=== PATIENT | male | born 1940 | race Caucasian/White ===

== ENCOUNTER 2018-10-22 23:02 | Emergency (ER) | payer MEDICARE, OTHER ==
[~2018-10-22] VITALS: Ht 177.8 cm; Wt 81.8 kg
[~2018-10-22 23:02] MED LIST: ALBU18HF2 INH; ASPI-1071 PO; FURO-150 PO
--- NOTE | 2018-10-23 00:09 | NUR ---
PT SITTING IN ROOM NAPPING. WILL CONTINUE TO MONITOR.
[2018-10-23] MEDS ORDERED: cephalexin 250mg capsule PO ONE (00:25)
[2018-10-23] MEDS ORDERED: ciprofloxacin 0.3% 2.5ml ophthalmic solution LEFTEYE ONE (00:25)
[2018-10-23] MEDS ORDERED: CIPR2.5D18 LEFTEYE (00:27)
[2018-10-23] MEDS ORDERED: CEPH250T PO (00:27)
[2018-10-23 01:04] VITALS: BP 108/67
== END 2018-10-23 01:42 | disposition home or self-care (01) ==
LOC: ER 23:02
DX: H00.035 Abscess of left lower eyelid (principal); H00.015 Hordeolum externum left lower eyelid; E78.00 Pure hypercholesterolemia, unspecified; I10 Essential (primary) hypertension; E03.9 Hypothyroidism, unspecified; Z90.49 Acquired absence of other specified parts of digestive tract; Z86.73 Personal history of transient ischemic attack (TIA), and cerebral infarction without residual deficits; Z98.890 Other specified postprocedural states; Z95.1 Presence of aortocoronary bypass graft; Z88.0 Allergy status to penicillin; Z79.82 Long term (current) use of aspirin; Z79.2 Long term (current) use of antibiotics; Z79.899 Other long term (current) drug therapy
CPT/HCPCS: 99284

== ENCOUNTER 2019-01-07 08:33 | Inpatient (IN) | payer MEDICARE, OTHER ==
[~2019-01-07] VITALS: Ht 177.8 cm; Wt 81.0 kg
[~2019-01-07 08:33] MED LIST changes: +CIPR2.5D18 LEFTEYE
--- NOTE | 2019-01-07 08:46 | NUR ---
Awaiting Ed MD.
--- NOTE | 2019-01-07 09:45 | NUR ---
patient repositioned for comfort,incontinent with BM,chet care provided,call light within reach.
[2019-01-07 10:10] LABS: BASOPHILS # (AUTO) 0.1 X10'3 (0-0.2); BASOPHILS % (AUTO) 0.2 % (0-1); EOSINOPHILS % (AUTO) 0.1 % (0-6); HEMATOCRIT 40.1 % (42.0-52.0); HEMOGLOBIN 13.1 g/dl (14.0-17.9); LYMPHOCYTES # (AUTO) 0.7 X10'3 (1.1-4.8); LYMPHOCYTES % (AUTO) 2.8 % (21-51); MEAN CORPUSCULAR HEMOGLOBIN 27.8 PG (27.0-31.0); MEAN CORPUSCULAR HGB CONC 32.7 g/dL (33.0-36.5); MEAN CORPUSCULAR VOLUME 84.9 FL (78-98); MEAN PLATELET VOLUME 9.8 FL (7.4-10.4); MONOCYTES # (AUTO) 3.2 X10'3 (0-0.9); MONOCYTES % (AUTO) 13.6 % (2-12); NEUTROPHILS # (AUTO) 19.6 X10'3 (1.8-7.7); NEUTROPHILS % (AUTO) 83.3 % (42-75); RED BLOOD COUNT 4.72 X10'6 (4.70-6.10); RED CELL DISTRIBUTION WIDTH 16.2 % (11.5-14.5); WHITE BLOOD COUNT 23.5 X10'3 (4.5-11.0)
[2019-01-07 10:12] LABS: ALANINE AMINOTRANSFERASE 17 U/L (12-78); ALBUMIN 3.2 G/DL (3.4-5.0); ALBUMIN/GLOBULIN RATIO 0.6 (1.1-1.5); ALKALINE PHOSPHATASE 67 IU/L (46-116); ANION GAP 7 (8-16); ASPARTATE AMINO TRANSFERASE 14 U/L (10-37); BILIRUBIN,TOTAL 0.6 MG/DL (0.1-1.0); BLOOD UREA NITROGEN 10 MG/DL (7-18); BUN/CREATININE RATIO 11.5 (5.4-32.0); CALCIUM 9.6 MG/DL (8.5-10.1); CHLORIDE 106 MMOL/L (99-107); CREATININE 0.87 MG/DL (0.60-1.10); GLUCOSE 122 MG/DL (70-104); POTASSIUM 3.7 MMOL/L (3.5-5.1); SODIUM 141 MMOL/L (135-145); TOTAL CARBON DIOXIDE 27.8 MMOL/L (24-32); TOTAL PROTEIN 8.7 G/DL (6.4-8.2); eGFR 84 ML/MIN
[2019-01-07 10:12] LABS: CLARITY,URINE BLOODY (Clear); COLOR,URINE RED (Yellow); UA COLLECTION TYPE CLN CATCH MIDSTREAM
[2019-01-07 10:20] LABS: RBC,URINE TNTC /HPF (0-2); WBC,URINE TNTC /HPF (0-4)
[2019-01-07 10:23] LABS: BACTERIA,URINE FEW /HPF (Neg); MUCUS STRANDS FEW /LPF (Neg); SQUAMOUS EPITHELIAL CELL,UR NONE SEEN /LPF (FEW)
[2019-01-07 10:24] LABS: TRANSITIONAL EPI CELLS,URINE FEW /HPF
[2019-01-07 10:46] LABS: PLATELET COUNT 103 X10'3 (140-440)
[2019-01-07 10:56] LABS: TOTAL CELLS COUNTED 100
[2019-01-07 10:58] LABS: ANISOCYTOSIS 1+; HYPOGRANULAR PLATELETS FEW; LARGE PLATELETS FEW; PLATELET ESTIMATE DECREASED
[2019-01-07 10:59] LABS: POLYCHROMASIA FEW
[2019-01-07] MEDS ORDERED: CefTRIAXone/D5W-Rocephin 1gm 50 ML IV ONE (11:00)
[2019-01-07] MEDS ORDERED: ondansetron/PF 4mg/2ml inj IV PRN (11:20)
[2019-01-07] MEDS ORDERED: magnesium 2GM in 50ml NS 50 ML IV PRN (11:20)
[2019-01-07] MEDS ORDERED: magnesium 4gm in 100ml NS 100 ML IV PRN (11:20)
[2019-01-07] MEDS ORDERED: magnesium hydroxide 30ml (MOM) UD suspension PO PRN (11:20)
[2019-01-07] MEDS ORDERED: potassium CL 10mEq/100ml bag 100 ML IV PRN ×2 (11:20)
[2019-01-07] MEDS ORDERED: mag hydrox/Alum hydrox/simeth 30ml oral suspension PO PRN (11:20)
[2019-01-07] MEDS ORDERED: morphine 2 MG/ML inj. syringe IV PRN ×2 (11:20)
[2019-01-07] MEDS ORDERED: acetaminophen 325mg tablet PO PRN (11:20)
[2019-01-07] MEDS ORDERED: potassium Cl 20 mEq SR tablet PO PRN ×2 (11:20)
[2019-01-07] MEDS ORDERED: normal saline 1000ml 1,000 ML IV SCH (13:05)
[2019-01-07] MEDS ORDERED: FLO0.4C PO (13:41)
[2019-01-07] MEDS ORDERED: POLY1DRO2 OP (13:41)
[2019-01-07] MEDS ORDERED: SYN0.088T PO (13:41)
[2019-01-07] MEDS: normal saline 1000ml 1,000 ML IV SCH ×2 (13:57→17:18)
--- NOTE | 2019-01-07 14:15 | NUR ---
Pt has arrived to floor. Aids doing bladder scan.
--- NOTE | 2019-01-07 14:30 | NUR ---
Bladder scan shows 96ml of urine in bladder. Pt eating sandwich, no signs of distress. Will continue to monitor.
[2019-01-07 14:32] VITALS: BP 119/55
--- NOTE | 2019-01-07 18:40 | NUR ---
Problems reprioritized. Patient report given, questions answered & plan of care reviewed with Gregory LOYOLA.
[2019-01-07 19:00] VITALS: BP 113/57
[2019-01-07] MEDS: lactobacillus rhamnosus 10,000 MMU CELLS/CAPSULE PO SCH (19:02)
[2019-01-08] VITALS: BP 101/52
[2019-01-08] MEDS: normal saline 1000ml 1,000 ML IV SCH ×3 (02:46→23:18)
[2019-01-08 05:52] LABS: HEMATOCRIT 31.3 % (42.0-52.0); HEMOGLOBIN 10.3 g/dl (14.0-17.9); LYMPHOCYTES % (AUTO) 5.6 % (21-51)
[2019-01-08 05:57] LABS: ALBUMIN 2.4 G/DL (3.4-5.0); ANION GAP 6 (8-16); BASOPHILS % (AUTO) 0.3 % (0-1); BILIRUBIN,TOTAL 0.5 MG/DL (0.1-1.0); BLOOD UREA NITROGEN 11 MG/DL (7-18); BUN/CREATININE RATIO 12.4 (5.4-32.0); CALCIUM 8.7 MG/DL (8.5-10.1); CHLORIDE 109 MMOL/L (99-107); CREATININE 0.89 MG/DL (0.60-1.10); EOSINOPHILS % (AUTO) 0 % (0-6); GLUCOSE 109 MG/DL (70-104); MAGNESIUM 1.7 MG/DL (1.5-2.4); MEAN CORPUSCULAR HEMOGLOBIN 28.6 PG (27.0-31.0); MEAN CORPUSCULAR VOLUME 86.7 FL (78-98); MEAN PLATELET VOLUME 9.7 FL (7.4-10.4); MONOCYTES # (AUTO) 3.8 X10'3 (0-0.9); NEUTROPHILS # (AUTO) 13.3 X10'3 (1.8-7.7); NEUTROPHILS % (AUTO) 73.1 % (42-75); PLATELET COUNT 56 X10'3 (140-440); POTASSIUM 3.7 MMOL/L (3.5-5.1); RED BLOOD COUNT 3.61 X10'6 (4.70-6.10); RED CELL DISTRIBUTION WIDTH 16.3 % (11.5-14.5); SODIUM 142 MMOL/L (135-145); TOTAL CARBON DIOXIDE 27.1 MMOL/L (24-32); TOTAL PROTEIN 6.7 G/DL (6.4-8.2); WHITE BLOOD COUNT 18.2 X10'3 (4.5-11.0); eGFR 82 ML/MIN
[2019-01-08 05:58] LABS: ALANINE AMINOTRANSFERASE 16 U/L (12-78); ALBUMIN/GLOBULIN RATIO 0.6 (1.1-1.5); ALKALINE PHOSPHATASE 47 IU/L (46-116); ASPARTATE AMINO TRANSFERASE 13 U/L (10-37); CHOL/HDL RATIO 3.8 (0.00-4.99); CHOLESTEROL 90 MG/DL (0-200); HDL CHOLESTEROL 24 MG/DL (35-60); LDL CHOLESTEROL 61 MG/DL (50-100); TRIGLYCERIDES 53 MG/DL (20-135)
--- NOTE | 2019-01-08 06:20 | NUR ---
Patient in room [facility]. I have received report from MILLA Jenkins and had the opportunity to ask questions and assume patient care.
[2019-01-08 06:33] LABS: TOTAL CELLS COUNTED 100
[2019-01-08 06:34] LABS: ANISOCYTOSIS 1+; PLATELET ESTIMATE DECREASED; POLYCHROMASIA FEW
[2019-01-08 06:35] LABS: LARGE PLATELETS FEW
[2019-01-08] MEDS: lactobacillus rhamnosus 10,000 MMU CELLS/CAPSULE PO SCH ×2 (07:58→21:38)
[2019-01-08] MEDS: CefTRIAXone/D5W-Rocephin 1gm 50 ML IV SCH (07:59)
[2019-01-08 08:00] VITALS: BP 99/48
[2019-01-08] MEDS: K and/or MAG REPLACEMENT MC SCH (08:00)
[2019-01-08] MEDS ORDERED: tamsulosin 0.4mg capsule PO SCH (09:15)
[2019-01-08] MEDS ORDERED: FLU VACC QS2019-20 36MOS UP/PF 60 MCG/0.5 ML SYRINGE IMVAC ONE (10:00)
[2019-01-08 11:00] VITALS: BP 93/52
[2019-01-08] MEDS: levoTHYROXINE 100mcg tablet PO SCH (11:28)
[2019-01-08] MEDS ORDERED: vancomycin/NS 1 GM ADD-VANTAGE 250 ML IV SCH (13:05)
[2019-01-08] MEDS: VANCOmycin 1250MG/NS 250ml Bag 250 ML IV SCH (14:58)
[2019-01-08] MEDS: mineral oil/petrolatum ophthal oint EACHEYE SCH ×2 (15:06→16:39)
--- NOTE | 2019-01-08 16:00 | NUR ---
Patient was bladder scanned per dr order with 175mL in bladder
--- NOTE | 2019-01-08 18:20 | NUR ---
Problems reprioritized. Patient report given, questions answered & plan of care reviewed with kelli del cid.
--- NOTE | 2019-01-08 18:30 | NUR ---
Patient in room [facility]. I have received report from Barbie LOYOLA and had the opportunity to ask questions and assume patient care.
[2019-01-08 19:00] VITALS: BP 99/57
[2019-01-08] MEDS: polyvinyl alcohol ophthalmic drops 15ml bottle EACHEYE SCH (21:38)
[2019-01-09] VITALS: BP 103/51
[2019-01-09] MEDS: VANCOmycin 1250MG/NS 250ml Bag 250 ML IV SCH (01:53)
--- NOTE | 2019-01-09 06:30 | NUR ---
Problems reprioritized. Patient report given, questions answered & plan of care reviewed with Barbie LOYOLA.
--- NOTE | 2019-01-09 06:39 | NUR ---
Patient in room [facility]. I have received report from MILLA Calvert and had the opportunity to ask questions and assume patient care.
[2019-01-09 06:58] LABS: BASOPHILS # (AUTO) 0.1 X10'3 (0-0.2); BASOPHILS % (AUTO) 0.5 % (0-1); EOSINOPHILS % (AUTO) 0.1 % (0-6); HEMATOCRIT 31.7 % (42.0-52.0); HEMOGLOBIN 10.5 g/dl (14.0-17.9); LYMPHOCYTES # (AUTO) 1.7 X10'3 (1.1-4.8); LYMPHOCYTES % (AUTO) 12.4 % (21-51); MEAN CORPUSCULAR HEMOGLOBIN 28.6 PG (27.0-31.0); MEAN CORPUSCULAR HGB CONC 33.2 g/dL (33.0-36.5); MEAN CORPUSCULAR VOLUME 86.4 FL (78-98); MEAN PLATELET VOLUME 10.2 FL (7.4-10.4); MONOCYTES # (AUTO) 4.6 X10'3 (0-0.9); MONOCYTES % (AUTO) 32.8 % (2-12); NEUTROPHILS # (AUTO) 7.6 X10'3 (1.8-7.7); NEUTROPHILS % (AUTO) 54.2 % (42-75); PLATELET COUNT 51 X10'3 (140-440); RED BLOOD COUNT 3.67 X10'6 (4.70-6.10); RED CELL DISTRIBUTION WIDTH 16.4 % (11.5-14.5)
[2019-01-09 07:04] LABS: ALANINE AMINOTRANSFERASE 15 U/L (12-78); ALBUMIN 2.3 G/DL (3.4-5.0); ALBUMIN/GLOBULIN RATIO 0.5 (1.1-1.5); ALKALINE PHOSPHATASE 43 IU/L (46-116); ANION GAP 9 (8-16); ASPARTATE AMINO TRANSFERASE 16 U/L (10-37); BILIRUBIN,TOTAL 0.5 MG/DL (0.1-1.0); BLOOD UREA NITROGEN 9 MG/DL (7-18); CALCIUM 8.1 MG/DL (8.5-10.1); CHLORIDE 108 MMOL/L (99-107); CREATININE 0.69 MG/DL (0.60-1.10); GLUCOSE 99 MG/DL (70-104); MAGNESIUM 1.5 MG/DL (1.5-2.4); POTASSIUM 3.2 MMOL/L (3.5-5.1); SODIUM 139 MMOL/L (135-145); TOTAL CARBON DIOXIDE 22.4 MMOL/L (24-32); TOTAL PROTEIN 6.6 G/DL (6.4-8.2); eGFR > 90 ML/MIN
[2019-01-09 08:00] VITALS: BP 111/60
[2019-01-09] MEDS: K and/or MAG REPLACEMENT MC SCH (08:00)
[2019-01-09] MEDS ORDERED: tamsulosin 0.4mg capsule PO SCH (08:00)
[2019-01-09] MEDS: polyvinyl alcohol ophthalmic drops 15ml bottle EACHEYE SCH (08:09)
[2019-01-09] MEDS: CefTRIAXone/D5W-Rocephin 1gm 50 ML IV SCH ×2 (08:09→10:31)
[2019-01-09] MEDS: levoTHYROXINE 100mcg tablet PO SCH (08:10)
[2019-01-09] MEDS: lactobacillus rhamnosus 10,000 MMU CELLS/CAPSULE PO SCH (08:10)
[2019-01-09 09:28] LABS: TOTAL CELLS COUNTED 100
[2019-01-09 09:29] LABS: ANISOCYTOSIS 1+; PLATELET ESTIMATE DECREASED; POLYCHROMASIA FEW
[2019-01-09] MEDS ORDERED: LEVO500T2 PO (10:13)
[2019-01-09 11:00] VITALS: BP 111/65
--- NOTE | 2019-01-09 12:32 | NUR ---
Patient discharged, picked up by [employer]. Education packet with next dose times in packet.
[2019-01-10] MEDS ORDERED: VANCOMYCIN LEVEL IV ONE (01:30)
== END 2019-01-09 12:30 | disposition home or self-care (01) | DRG 872 ==
LOC: ER 08:33 → ED HOLD 11:30 → SUR 3N 14:09
PROVIDERS: ADMIT Family Medicine; ATTEND Internal Medicine
DX: A41.9 Sepsis, unspecified organism (principal); N39.0 Urinary tract infection, site not specified; N17.9 Acute kidney failure, unspecified; B96.4 Proteus (mirabilis) (morganii) as the cause of diseases classified elsewhere; E03.9 Hypothyroidism, unspecified; E78.00 Pure hypercholesterolemia, unspecified; E78.5 Hyperlipidemia, unspecified; I10 Essential (primary) hypertension; R33.8 Other retention of urine; R00.0 Tachycardia, unspecified; D69.6 Thrombocytopenia, unspecified; N20.0 Calculus of kidney; B95.4 Other streptococcus as the cause of diseases classified elsewhere; N32.0 Bladder-neck obstruction; N28.1 Cyst of kidney, acquired; N31.9 Neuromuscular dysfunction of bladder, unspecified; N40.1 Benign prostatic hyperplasia with lower urinary tract symptoms; Z79.899 Other long term (current) drug therapy; Z88.0 Allergy status to penicillin; Z82.49 Family history of ischemic heart disease and other diseases of the circulatory system; Z86.73 Personal history of transient ischemic attack (TIA), and cerebral infarction without residual deficits; Z87.442 Personal history of urinary calculi; Z90.49 Acquired absence of other specified parts of digestive tract
CPT/HCPCS: 36415; 74176; 80053; 80061; 81001; 83605; 83735; 84145; 85025; 86885; 86900; 86901; 87040; 87077; 87081; 87088; 87186; 99285; G0378; J0696; J2270; J3370; J7030; Q2037

== ENCOUNTER 2021-03-05 09:15 | Outpatient (CLI) | payer MEDICARE, OTHER, MEDICAID ==
[~2021-03-05] VITALS: Ht 177.8 cm; Wt 97.7 kg
[~2021-03-05 09:15] MED LIST changes: -ALBU18HF2 INH; -ASPI-1071 PO; -CIPR2.5D18 LEFTEYE; +FERR324T23 PO; +FLO0.4C PO; -FURO-150 PO; +LEVO100T PO; +RUXO5TAB PO
[2021-03-05] MEDS ORDERED: nitroGLYCERIN 0.4mg SUBLingual tab SL PRN (11:15)
[2021-03-05] MEDS ORDERED: normal saline 500ml IV soln 500 ML IV ONE (11:15)
[2021-03-05] MEDS ORDERED: regadenoson 0.4mg/5ml syringe IV ONE (11:15)
[2021-03-05] MEDS ORDERED: aminophylline 250mg/10ml inj. IV PRN (11:15)
[2021-03-05 11:18] VITALS: BP 153/94
[2021-03-05 11:24] VITALS: BP 139/93
[2021-03-05 11:25] VITALS: BP 138/69
[2021-03-05 11:26] VITALS: BP 135/81
[2021-03-05 11:27] VITALS: BP 145/79
[2021-03-05 11:28] VITALS: BP 137/85
== END 2021-03-05 23:59 | disposition home or self-care (01) ==
LOC: RAD 09:15
PROVIDERS: ATTEND Internal Medicine Cardiovascular Disease
DX: I08.3 Combined rheumatic disorders of mitral, aortic and tricuspid valves (principal); I48.0 Paroxysmal atrial fibrillation
CPT/HCPCS: 78452; 93017; 93308; A9500; J2785; J7040

== ENCOUNTER 2021-03-11 16:29 | Emergency (ER) | payer MEDICARE, OTHER, MEDICAID ==
[~2021-03-11] VITALS: Ht 177.8 cm; Wt 97.7 kg
[2021-03-11 17:24] LABS: BASOPHILS # (AUTO) 0.1 X10'3 (0-0.2)
[2021-03-11 17:36] LABS: ALANINE AMINOTRANSFERASE 17 U/L (12-78); ALBUMIN 3.7 G/DL (3.4-5.0); ALBUMIN/GLOBULIN RATIO 0.9 (1.1-1.5); ALKALINE PHOSPHATASE 51 IU/L (46-116); ASPARTATE AMINO TRANSFERASE 13 U/L (10-37); BILIRUBIN,TOTAL 0.4 MG/DL (0.1-1.0); BLOOD UREA NITROGEN 21 MG/DL (7-18); BUN/CREATININE RATIO 18.3 (5.4-32.0); CALCIUM 9.1 MG/DL (8.5-10.1); CREATININE 1.15 MG/DL (0.60-1.10); GLUCOSE 104 MG/DL (70-104); TOTAL CARBON DIOXIDE 29.7 MMOL/L (24-32); TOTAL PROTEIN 7.9 G/DL (6.4-8.2); eGFR 61 ML/MIN
[2021-03-11 17:47] LABS: HEMATOCRIT 34.8 % (42.0-52.0); HEMOGLOBIN 11.5 g/dl (14.0-17.9); MEAN CORPUSCULAR HEMOGLOBIN 29.9 PG (27.0-31.0); MEAN CORPUSCULAR HGB CONC 33.2 g/dL (33.0-36.5); MEAN CORPUSCULAR VOLUME 90.1 FL (78-98); RED BLOOD COUNT 3.86 X10'6 (4.70-6.10); RED CELL DISTRIBUTION WIDTH 18.5 % (11.5-14.5); WHITE BLOOD COUNT 10.3 X10'3 (4.5-11.0)
[2021-03-11 17:48] LABS: BASOPHILS % (AUTO) 0.9 % (0-1); EOSINOPHILS % (AUTO) 0.3 % (0-6); LYMPHOCYTES # (AUTO) 1.3 X10'3 (1.1-4.8); LYMPHOCYTES % (AUTO) 12.4 % (21-51); MONOCYTES # (AUTO) 1.4 X10'3 (0-0.9); NEUTROPHILS # (AUTO) 7.4 X10'3 (1.8-7.7); NEUTROPHILS % (AUTO) 72.4 % (42-75); PLATELET COUNT 53 X10'3 (140-440)
[2021-03-11 18:07] LABS: ANISOCYTOSIS 2+; PLATELET ESTIMATE DECREASED; TOTAL CELLS COUNTED 100
[2021-03-11 18:08] LABS: ANION GAP 4 (8-16); CHLORIDE 108 MMOL/L (99-107); ELLIPTOCYTES 1+; GIANT PLATELET FEW; LARGE PLATELETS MODERATE; POLYCHROMASIA 1+; POTASSIUM 4.9 MMOL/L (3.5-5.1); SODIUM 142 MMOL/L (135-145)
[2021-03-11 20:56] LABS: CLARITY,URINE CLOUDY (Clear); COLOR,URINE YELLOW (Yellow); GLUCOSE, URINE NEGATIVE (Neg); KETONES,URINE NEGATIVE (Neg); LEUKOCYTE ESTERASE ,URINE MODERATE (Neg); NITRITES, URINE NEGATIVE (Neg); OCCULT BLOOD,URINE LARGE (Neg); PH,URINE 7.5 (4.8-8.0); PROTEIN,URINE 100 mg/dl (Neg)
[2021-03-11 21:00] LABS: UA COLLECTION TYPE URINAL
[2021-03-11 21:03] LABS: RBC,URINE 20-50 /HPF (0-2); WBC,URINE TNTC /HPF (0-4)
[2021-03-11 21:04] LABS: BACTERIA,URINE 4+ /HPF (Neg)
[2021-03-11 21:05] LABS: SQUAMOUS EPITHELIAL CELL,UR FEW /LPF (FEW)
[2021-03-11] MEDS ORDERED: CefTRIAXone 2gm/D5W 50ml BAG 50 ML IV ONE (21:30)
[2021-03-11] MEDS ORDERED: CEPH-585 PO (22:12)
[2021-03-12 02:15] VITALS: BP 146/82
--- NOTE | 2021-03-17 09:41 | NUR ---
LAB CALLED WITH LAB POSITIVE URINE CULTURE FOR ECHOLI; 2 DIFFERENT STRAINS AND ONE BEING AN MDRO. LABS SHOWEN TO PROVIDER
== END 2021-03-12 04:59 | disposition home or self-care (01) ==
LOC: ER 16:30
DX: N39.0 Urinary tract infection, site not specified (principal); R30.9 Painful micturition, unspecified; R30.0 Dysuria; R10.84 Generalized abdominal pain; E78.00 Pure hypercholesterolemia, unspecified; I10 Essential (primary) hypertension; E03.9 Hypothyroidism, unspecified; Z86.73 Personal history of transient ischemic attack (TIA), and cerebral infarction without residual deficits; Z87.440 Personal history of urinary (tract) infections; Z90.89 Acquired absence of other organs; Z98.890 Other specified postprocedural states; Z72.89 Other problems related to lifestyle; Z95.1 Presence of aortocoronary bypass graft; Z88.0 Allergy status to penicillin; Z79.2 Long term (current) use of antibiotics; Z79.899 Other long term (current) drug therapy
CPT/HCPCS: 36415; 80053; 81001; 85007; 85025; 87077; 87088; 87186; 96365; 99284; J0696

== ENCOUNTER 2021-04-05 22:03 | Emergency (ER) | payer MEDICARE, OTHER, MEDICAID ==
[~2021-04-05] VITALS: Ht 177.8 cm; Wt 98.2 kg
[~2021-04-05 22:03] MED LIST changes: +CEPH-585 PO
[2021-04-05 22:12] VITALS: BP 135/75
--- NOTE | 2021-04-05 22:16 | NUR ---
Patient vaccinated x 2 plus booster for covid and current on flu shot
[2021-04-05 23:06] LABS: CLARITY,URINE CLEAR (Clear); COLOR,URINE YELLOW (Yellow); GLUCOSE, URINE NEGATIVE (Neg); KETONES,URINE NEGATIVE (Neg); LEUKOCYTE ESTERASE ,URINE MODERATE (Neg); NITRITES, URINE POSITIVE (Neg); OCCULT BLOOD,URINE LARGE (Neg); PROTEIN,URINE NEGATIVE (Neg); UROBILINOGEN,URINE 0.2 E.U/dL (0.2-1.0)
[2021-04-05 23:14] LABS: UA COLLECTION TYPE FOLEY CATH
[2021-04-05 23:21] LABS: WBC,URINE 20-30 /HPF (0-4)
[2021-04-05 23:24] LABS: BACTERIA,URINE 3+ /HPF (Neg); MUCUS STRANDS NONE SEEN /LPF (Neg); SQUAMOUS EPITHELIAL CELL,UR NONE SEEN /LPF (FEW)
== END 2021-04-06 00:47 | disposition home or self-care (01) ==
LOC: ER 22:03
DX: T83.098A Other mechanical complication of other urinary catheter, initial encounter (principal); E78.00 Pure hypercholesterolemia, unspecified; I10 Essential (primary) hypertension; E03.9 Hypothyroidism, unspecified; N40.0 Benign prostatic hyperplasia without lower urinary tract symptoms; Z87.440 Personal history of urinary (tract) infections; Z86.73 Personal history of transient ischemic attack (TIA), and cerebral infarction without residual deficits; Z72.89 Other problems related to lifestyle; Z88.0 Allergy status to penicillin; Z79.2 Long term (current) use of antibiotics; Z79.899 Other long term (current) drug therapy; Y84.6 Urinary catheterization as the cause of abnormal reaction of the patient, or of later complication, without mention of misadventure at the time of the procedure; Y92.89 Other specified places as the place of occurrence of the external cause
CPT/HCPCS: 81001; 99283

== ENCOUNTER 2021-04-19 13:12 | Emergency (ER) | payer MEDICARE, MEDICAID ==
[~2021-04-19] VITALS: Ht 177.8 cm; Wt 92.0 kg
[2021-04-19 15:44] VITALS: BP 164/80
[2021-04-19 16:36] LABS: EOSINOPHILS % (AUTO) 0.1 % (0-6); HEMOGLOBIN 10.7 g/dl (14.0-17.9); LYMPHOCYTES # (AUTO) 1.1 X10'3 (1.1-4.8); MEAN CORPUSCULAR HGB CONC 33.5 g/dL (33.0-36.5); WHITE BLOOD COUNT 13.7 X10'3 (4.5-11.0)
[2021-04-19 16:37] LABS: BASOPHILS # (AUTO) 0.1 X10'3 (0-0.2); BASOPHILS % (AUTO) 0.5 % (0-1); LYMPHOCYTES % (AUTO) 8.3 % (21-51); MEAN CORPUSCULAR HEMOGLOBIN 30.5 PG (27.0-31.0); MEAN PLATELET VOLUME 10.2 FL (7.4-10.4); MONOCYTES # (AUTO) 2.1 X10'3 (0-0.9); MONOCYTES % (AUTO) 15.7 % (2-12); NEUTROPHILS # (AUTO) 10.3 X10'3 (1.8-7.7); NEUTROPHILS % (AUTO) 75.4 % (42-75); RED BLOOD COUNT 3.52 X10'6 (4.70-6.10); RED CELL DISTRIBUTION WIDTH 17.9 % (11.5-14.5)
[2021-04-19 16:38] LABS: ALANINE AMINOTRANSFERASE 15 U/L (12-78); ALBUMIN 3.4 G/DL (3.4-5.0); ALBUMIN/GLOBULIN RATIO 0.8 (1.1-1.5); ALKALINE PHOSPHATASE 46 IU/L (46-116); ANION GAP 7 (8-16); ASPARTATE AMINO TRANSFERASE 15 U/L (10-37); BILIRUBIN,TOTAL 0.4 MG/DL (0.1-1.0); BLOOD UREA NITROGEN 15 MG/DL (7-18); BUN/CREATININE RATIO 10.1 (5.4-32.0); CALCIUM 8.7 MG/DL (8.5-10.1); CHLORIDE 109 MMOL/L (99-107); CREATININE 1.48 MG/DL (0.60-1.10); GLUCOSE 118 MG/DL (70-104); POTASSIUM 4.4 MMOL/L (3.5-5.1); SODIUM 141 MMOL/L (135-145); TOTAL CARBON DIOXIDE 24.8 MMOL/L (24-32); TOTAL PROTEIN 7.5 G/DL (6.4-8.2); eGFR 46 ML/MIN
[2021-04-19 16:58] LABS: PLATELET COUNT 40 X10'3 (140-440)
--- NOTE | 2021-04-19 16:58 | NUR ---
BEDSIDE HAND IRRIGATION OF HOOD CLEAR LIQUID RETURN
[2021-04-19 17:02] LABS: CLARITY,URINE CLOUDY (Clear); COLOR,URINE RED (Yellow); GLUCOSE, URINE NEGATIVE (Neg); KETONES,URINE TRACE mg/dl (Neg); LEUKOCYTE ESTERASE ,URINE LARGE (Neg); NITRITES, URINE POSITIVE (Neg); OCCULT BLOOD,URINE LARGE (Neg); PH,URINE 6.5 (4.8-8.0); PROTEIN,URINE 100 mg/dl (Neg)
[2021-04-19 17:09] LABS: UA COLLECTION TYPE NON-SPECIFIED
[2021-04-19 17:11] LABS: BACTERIA,URINE 4+ /HPF (Neg); MUCUS STRANDS FEW /LPF (Neg); RBC,URINE TNTC /HPF (0-2); SQUAMOUS EPITHELIAL CELL,UR NONE SEEN /LPF (FEW); WBC,URINE 20-30 /HPF (0-4)
[2021-04-19] MEDS ORDERED: normal saline 1000ml 1,000 ML IV ONE (17:20)
--- NOTE | 2021-04-19 18:28 | NUR ---
REPORT GIVEN TO RAJINDER LOYOLA
== END 2021-04-19 21:39 | disposition home or self-care (01) ==
LOC: ER 13:13
DX: N18.9 Chronic kidney disease, unspecified (principal); R31.9 Hematuria, unspecified; R14.0 Abdominal distension (gaseous); E78.00 Pure hypercholesterolemia, unspecified; I10 Essential (primary) hypertension; E03.9 Hypothyroidism, unspecified; Z86.73 Personal history of transient ischemic attack (TIA), and cerebral infarction without residual deficits; Z87.440 Personal history of urinary (tract) infections; Z90.89 Acquired absence of other organs; Z98.890 Other specified postprocedural states; Z72.89 Other problems related to lifestyle; Z88.0 Allergy status to penicillin; Z79.2 Long term (current) use of antibiotics; Z95.1 Presence of aortocoronary bypass graft; Z79.899 Other long term (current) drug therapy
CPT/HCPCS: 36415; 80053; 81001; 85025; 85610; 86885; 86900; 86901; 87077; 87088; 87186; 96360; 99284; J7030

== ENCOUNTER 2021-04-22 21:36 | Inpatient (IN) | payer MEDICARE, OTHER, MEDICAID ==
[~2021-04-22] VITALS: Ht 177.8 cm; Wt 95.0 kg
[2021-04-22] MEDS ORDERED: LIDOcaine 2% 10ml TOPICAL JELLY (Urojet) TP ONE (22:20)
[2021-04-22 22:43] LABS: BASOPHILS # (AUTO) 0.1 X10'3 (0-0.2); EOSINOPHILS % (AUTO) 0.4 % (0-6); MONOCYTES # (AUTO) 1.3 X10'3 (0-0.9)
[2021-04-22 22:45] LABS: BASOPHILS % (AUTO) 0.9 % (0-1); HEMATOCRIT 31.7 % (42.0-52.0); HEMOGLOBIN 10.4 g/dl (14.0-17.9); LYMPHOCYTES # (AUTO) 1.7 X10'3 (1.1-4.8); LYMPHOCYTES % (AUTO) 16.6 % (21-51); MEAN CORPUSCULAR HEMOGLOBIN 30.2 PG (27.0-31.0); MEAN CORPUSCULAR HGB CONC 32.9 g/dL (33.0-36.5); MEAN CORPUSCULAR VOLUME 91.6 FL (78-98); MEAN PLATELET VOLUME 10.8 FL (7.4-10.4); MONOCYTES % (AUTO) 12.5 % (2-12); NEUTROPHILS # (AUTO) 7.1 X10'3 (1.8-7.7); NEUTROPHILS % (AUTO) 69.6 % (42-75); RED BLOOD COUNT 3.46 X10'6 (4.70-6.10); RED CELL DISTRIBUTION WIDTH 17.5 % (11.5-14.5); WHITE BLOOD COUNT 10.2 X10'3 (4.5-11.0)
[2021-04-22] MEDS ORDERED: vancomycin/NS 1 GM ADD-VANTAGE 250 ML IV ONE (23:05)
[2021-04-22] MEDS ORDERED: gentamicin in saline, iso-osm 80 MG/50 ML premix IV ONE (23:05)
[2021-04-22 23:07] LABS: PLATELET COUNT 45 X10'3 (140-440)
[2021-04-22 23:10] LABS: ALANINE AMINOTRANSFERASE 27 U/L (12-78); ALBUMIN 3.5 G/DL (3.4-5.0); ALBUMIN/GLOBULIN RATIO 0.9 (1.1-1.5); ALKALINE PHOSPHATASE 45 IU/L (46-116); ANION GAP 6 (8-16); ASPARTATE AMINO TRANSFERASE 17 U/L (10-37); BILIRUBIN,TOTAL 0.5 MG/DL (0.1-1.0); BLOOD UREA NITROGEN 16 MG/DL (7-18); BUN/CREATININE RATIO 14.7 (5.4-32.0); CALCIUM 9.2 MG/DL (8.5-10.1); CHLORIDE 106 MMOL/L (99-107); CREATININE 1.09 MG/DL (0.60-1.10); GLUCOSE 100 MG/DL (70-104); SODIUM 139 MMOL/L (135-145); TOTAL CARBON DIOXIDE 26.6 MMOL/L (24-32); TOTAL PROTEIN 7.3 G/DL (6.4-8.2); eGFR 65 ML/MIN
[2021-04-22] MEDS ORDERED: gentamicin inj 80 MG in normal saline 100ml IV soln 100 ML IV ONE (23:10)
[2021-04-22 23:29] LABS: ANISOCYTOSIS 1+; LARGE PLATELETS FEW; PLATELET ESTIMATE DECREASED; POLYCHROMASIA FEW
[2021-04-22 23:30] LABS: BURR CELLS FEW
[2021-04-22] MEDS ORDERED: iohexol 300mg/ml 100ml inj. ONE (23:31)
[2021-04-22 23:40] LABS: CLARITY,URINE CLOUDY (Clear); COLOR,URINE RED (Yellow); GLUCOSE, URINE NEGATIVE (Neg); KETONES,URINE TRACE mg/dl (Neg); LEUKOCYTE ESTERASE ,URINE LARGE (Neg); OCCULT BLOOD,URINE LARGE (Neg); PH,URINE 5.5 (4.8-8.0); PROTEIN,URINE >=300 mg/dl (Neg)
[2021-04-22 23:47] LABS: NITRITES, URINE NEGATIVE (Neg); UA COLLECTION TYPE FOLEY CATH
[2021-04-22 23:51] LABS: BACTERIA,URINE 4+ /HPF (Neg); RBC,URINE TNTC /HPF (0-2); WBC,URINE TNTC /HPF (0-4)
[2021-04-22 23:52] LABS: SQUAMOUS EPITHELIAL CELL,UR FEW /LPF (FEW)
[2021-04-23] MEDS ORDERED: mag hydrox/Alum hydrox/simeth 30ml oral suspension PO PRN (02:35)
[2021-04-23] MEDS: normal saline 1000ml 1,000 ML IV SCH ×3 (02:35→19:44)
[2021-04-23] MEDS ORDERED: bisacodyl 10mg suppository rectal RC PRN (02:35)
[2021-04-23] MEDS ORDERED: magnesium 2GM in 50ml NS 50 ML IV PRN (02:35)
[2021-04-23] MEDS ORDERED: magnesium Cl slow-release 64mg tablet PO PRN (02:35)
[2021-04-23] MEDS ORDERED: acetaminophen 650mg rectal suppository RC PRN (02:35)
[2021-04-23] MEDS ORDERED: tranexamic acid 1gm/0.7% sal. 100 ML IV ONE (02:35)
[2021-04-23] MEDS ORDERED: potassium CL 10mEq/100ml bag 100 ML IV PRN (02:35)
[2021-04-23] MEDS ORDERED: HYDROcodone/acetaminophen 10/325mg tab PO PRN (02:35)
[2021-04-23] MEDS ORDERED: magnesium hydroxide 30ml (MOM) UD suspension PO PRN (02:35)
[2021-04-23] MEDS ORDERED: acetaminophen 325mg tablet PO PRN ×2 (02:35)
[2021-04-23] MEDS ORDERED: HYDROmorphone inj. 0.5 MG/0.5 ML DISP.SYRIN IV PRN (02:35)
[2021-04-23] MEDS ORDERED: potassium Cl 20 mEq SR tablet PO PRN ×2 (02:35)
[2021-04-23] MEDS ORDERED: HYDROcodone/acetaminophen 5mg/325mg tablet PO PRN (02:35)
[2021-04-23] MEDS ORDERED: magnesium 4gm in 100ml NS 100 ML IV PRN (02:35)
[2021-04-23] MEDS ORDERED: HYDROmorphone/PF 0.2 MG/ML SYRINGE IV PRN (02:35)
[2021-04-23] MEDS ORDERED: GENTAMICIN PER PHARMACY IV ONE (03:35)
[2021-04-23 03:48] LABS: MAGNESIUM 2.1 MG/DL (1.5-2.4)
[2021-04-23 03:49] LABS: APTT 26 SECONDS (22-32)
[2021-04-23 04:50] VITALS: BP 140/86
[2021-04-23 05:12] VITALS: BP 127/86
[2021-04-23 06:14] VITALS: BP 147/82
[2021-04-23] MEDS ORDERED: GENTAMICIN IV SCH (08:00)
[2021-04-23] MEDS ORDERED: NORMAL SALINE IV SCH (08:00)
[2021-04-23] MEDS ORDERED: gentamicin in saline, iso-osm 80 MG/50 ML premix IV SCH (08:00)
[2021-04-23] MEDS: K and/or MAG REPLACEMENT MC SCH ×2 (08:00→19:37)
[2021-04-23] MEDS: docusate sod 100mg capsule PO SCH ×2 (08:00→19:36)
[2021-04-23 09:39] LABS: HEMATOCRIT 28.3 % (42.0-52.0); HEMOGLOBIN 9.5 g/dl (14.0-17.9); MEAN CORPUSCULAR HEMOGLOBIN 30.6 PG (27.0-31.0); MEAN CORPUSCULAR HGB CONC 33.7 g/dL (33.0-36.5); MEAN CORPUSCULAR VOLUME 90.7 FL (78-98); MEAN PLATELET VOLUME 9.8 FL (7.4-10.4); PLATELET COUNT 82 X10'3 (140-440); RED BLOOD COUNT 3.12 X10'6 (4.70-6.10); RED CELL DISTRIBUTION WIDTH 17.5 % (11.5-14.5); WHITE BLOOD COUNT 8.4 X10'3 (4.5-11.0)
[2021-04-23] MEDS ORDERED: FINA5TAB11 PO (15:39)
[2021-04-23] MEDS ORDERED: AMIO200T61 PO (15:39)
[2021-04-23] MEDS ORDERED: OXYB5TAB16 PO (15:39)
[2021-04-23] MEDS ORDERED: TRAM50TA2 PO (15:39)
[2021-04-23] MEDS ORDERED: FLO0.4C PO (15:39)
[2021-04-23] MEDS ORDERED: NORMAL SALINE IV ONE (16:05)
[2021-04-23] MEDS ORDERED: GENTAMICIN IV ONE (16:05)
[2021-04-23 18:00] VITALS: BP 134/75
[2021-04-23] MEDS: lactobacillus rhamnosus 10,000 MMU CELLS/CAPSULE PO SCH (19:36)
[2021-04-23] MEDS ORDERED: temazepam 15mg capsule PO PRN (21:00)
[2021-04-23] MEDS: vancomycin/NS 1 GM ADD-VANTAGE 250 ML IV SCH (23:09)
[2021-04-24] VITALS: BP 124/72
[2021-04-24] MEDS: normal saline 1000ml 1,000 ML IV SCH ×2 (06:01→20:41)
[2021-04-24 06:19] LABS: APTT 25 SECONDS (22-32)
[2021-04-24 06:20] LABS: BASOPHILS # (AUTO) 0.1 X10'3 (0-0.2); BASOPHILS % (AUTO) 0.6 % (0-1); EOSINOPHILS % (AUTO) 0.4 % (0-6); HEMATOCRIT 28.9 % (42.0-52.0); HEMOGLOBIN 9.7 g/dl (14.0-17.9); LYMPHOCYTES # (AUTO) 0.9 X10'3 (1.1-4.8); LYMPHOCYTES % (AUTO) 8.3 % (21-51); MEAN CORPUSCULAR HEMOGLOBIN 30.6 PG (27.0-31.0); MEAN CORPUSCULAR HGB CONC 33.4 g/dL (33.0-36.5); MEAN CORPUSCULAR VOLUME 91.6 FL (78-98); MEAN PLATELET VOLUME 10.6 FL (7.4-10.4); MONOCYTES # (AUTO) 1.1 X10'3 (0-0.9); MONOCYTES % (AUTO) 11.1 % (2-12); NEUTROPHILS # (AUTO) 8.2 X10'3 (1.8-7.7); NEUTROPHILS % (AUTO) 79.6 % (42-75); PLATELET COUNT 80 X10'3 (140-440); RED BLOOD COUNT 3.15 X10'6 (4.70-6.10); RED CELL DISTRIBUTION WIDTH 17.8 % (11.5-14.5); WHITE BLOOD COUNT 10.3 X10'3 (4.5-11.0)
[2021-04-24 06:40] LABS: ALANINE AMINOTRANSFERASE 14 U/L (12-78); ALBUMIN 2.8 G/DL (3.4-5.0); ALBUMIN/GLOBULIN RATIO 0.8 (1.1-1.5); ALKALINE PHOSPHATASE 38 IU/L (46-116); ANION GAP 4 (8-16); ASPARTATE AMINO TRANSFERASE 14 U/L (10-37); BILIRUBIN,TOTAL 0.3 MG/DL (0.1-1.0); BLOOD UREA NITROGEN 12 MG/DL (7-18); BUN/CREATININE RATIO 14.1 (5.4-32.0); CHLORIDE 114 MMOL/L (99-107); CREATININE 0.85 MG/DL (0.60-1.10); GLUCOSE 99 MG/DL (70-104); POTASSIUM 4.6 MMOL/L (3.5-5.1); SODIUM 145 MMOL/L (135-145); TOTAL CARBON DIOXIDE 26.9 MMOL/L (24-32); TOTAL PROTEIN 6.5 G/DL (6.4-8.2); eGFR 86 ML/MIN
--- NOTE | 2021-04-24 06:55 | NUR ---
Patient in room [facility]. I have received report from MILLA CEDILLO and had the opportunity to ask questions and assume patient care.
[2021-04-24 07:00] VITALS: BP 136/72
[2021-04-24] MEDS: K and/or MAG REPLACEMENT MC SCH ×2 (08:00→20:46)
[2021-04-24 08:06] LABS: LARGE PLATELETS FEW; PLATELET ESTIMATE DECREASED
[2021-04-24 08:07] LABS: ACANTHOCYTES FEW; ANISOCYTOSIS 1+; SCHISTOCYTES FEW
[2021-04-24] MEDS: docusate sod 100mg capsule PO SCH ×2 (09:01→20:40)
[2021-04-24] MEDS: lactobacillus rhamnosus 10,000 MMU CELLS/CAPSULE PO SCH ×2 (09:03→20:40)
[2021-04-24 11:00] VITALS: BP 148/80
[2021-04-24] MEDS: ferrous gluconate 324mg tablet PO SCH ×2 (14:15→17:27)
--- NOTE | 2021-04-24 16:16 | NUR ---
PATIENT COMPLAINING OF HOOD NOT WORKING PAGED DR FOR ORDERS TO IRRIGATE OR PLACE NEW HOOD, AWAITING CALL BACK PAGER ID: [phone] MESSAGE: LINDA [id number]: NEEDS ORDERES TO IRRAGATE HOOD OR PLACE A NEW ONE. MAY BE BLOCKED BY CLOT. THANK YOU WONG [id number]
[2021-04-24] MEDS ORDERED: gentamicin inj 410 MG in normal saline 100ml IV soln 100 ML IV SCH (17:00)
--- NOTE | 2021-04-24 17:05 | NUR ---
PATIENT C/O HOOD NOT WORKING, PASSING CLOTS AND URINE, DR BAUER AWAITING CALL BACK PAGER ID: [phone] MESSAGE: LINDA [id number]: NEEDS ORDERES TO IRRAGATE HOOD OR PLACE A NEW ONE. MAY BE BLOCKED BY CLOT. THANK YOU WONG [id number]
[2021-04-24] MEDS ORDERED: LIDOcaine 2% 10ml TOPICAL JELLY (Urojet) TP ONE (17:20)
[2021-04-24 18:00] VITALS: BP 128/64
--- NOTE | 2021-04-24 19:46 | NUR ---
Problems reprioritized. Patient report given, questions answered & plan of care reviewed with MILLA WATSON.
[2021-04-24] MEDS: traMADol 50MG tablet PO SCH (20:40)
[2021-04-24] MEDS: oxybutynin 5mg tablet PO SCH (20:40)
[2021-04-24] MEDS: tamsulosin 0.4mg capsule PO SCH (20:41)
[2021-04-24] MEDS ORDERED: nystatin 15 GM powder TP SCH (21:00)
[2021-04-24] MEDS: vancomycin/NS 1 GM ADD-VANTAGE 250 ML IV SCH (23:06)
[2021-04-25] VITALS: BP 130/69
[2021-04-25 04:47] LABS: HEMOGLOBIN 9.4 g/dl (14.0-17.9); MEAN CORPUSCULAR VOLUME 91.7 FL (78-98)
[2021-04-25 04:49] LABS: BASOPHILS # (AUTO) 0.1 X10'3 (0-0.2); BASOPHILS % (AUTO) 0.8 % (0-1); EOSINOPHILS % (AUTO) 0.2 % (0-6); HEMATOCRIT 28.9 % (42.0-52.0); LYMPHOCYTES % (AUTO) 5.7 % (21-51); MEAN CORPUSCULAR HGB CONC 32.7 g/dL (33.0-36.5); MEAN PLATELET VOLUME 11.6 FL (7.4-10.4); MONOCYTES # (AUTO) 1.7 X10'3 (0-0.9); MONOCYTES % (AUTO) 9.6 % (2-12); NEUTROPHILS # (AUTO) 14.5 X10'3 (1.8-7.7); NEUTROPHILS % (AUTO) 83.7 % (42-75); PLATELET COUNT 70 X10'3 (140-440); RED BLOOD COUNT 3.15 X10'6 (4.70-6.10); RED CELL DISTRIBUTION WIDTH 17.6 % (11.5-14.5); WHITE BLOOD COUNT 17.3 X10'3 (4.5-11.0)
[2021-04-25 04:58] LABS: APTT 27 SECONDS (22-32)
[2021-04-25 05:28] LABS: ALANINE AMINOTRANSFERASE 15 U/L (12-78); ALBUMIN 2.9 G/DL (3.4-5.0); ALBUMIN/GLOBULIN RATIO 0.8 (1.1-1.5); ALKALINE PHOSPHATASE 40 IU/L (46-116); ANION GAP 9 (8-16); ASPARTATE AMINO TRANSFERASE 15 U/L (10-37); BILIRUBIN,TOTAL 0.3 MG/DL (0.1-1.0); BLOOD UREA NITROGEN 9 MG/DL (7-18); BUN/CREATININE RATIO 9.2 (5.4-32.0); CALCIUM 8.2 MG/DL (8.5-10.1); CHLORIDE 110 MMOL/L (99-107); CREATININE 0.98 MG/DL (0.60-1.10); GLUCOSE 100 MG/DL (70-104); POTASSIUM 3.9 MMOL/L (3.5-5.1); SODIUM 144 MMOL/L (135-145); TOTAL CARBON DIOXIDE 24.8 MMOL/L (24-32); TOTAL PROTEIN 6.4 G/DL (6.4-8.2); eGFR 73 ML/MIN
[2021-04-25] MEDS: normal saline 1000ml 1,000 ML IV SCH ×3 (05:29→15:45)
--- NOTE | 2021-04-25 07:00 | NUR ---
Patient in room [facility]. I have received report from MILLA Saldaña and had the opportunity to ask questions and assume patient care.
[2021-04-25 07:21] LABS: ANISOCYTOSIS 1+; PLATELET ESTIMATE DECREASED; TOTAL CELLS COUNTED 100
[2021-04-25 07:22] LABS: BURR CELLS FEW; LARGE PLATELETS FEW; SCHISTOCYTES FEW
[2021-04-25 08:00] VITALS: BP 129/68
[2021-04-25] MEDS: K and/or MAG REPLACEMENT MC SCH ×2 (08:00→20:10)
[2021-04-25] MEDS ORDERED: RUXOLITINIB 5 MG PO SCH (08:00)
[2021-04-25] MEDS: tamsulosin 0.4mg capsule PO SCH ×2 (10:46→20:09)
[2021-04-25] MEDS: finasteride 5mg tablet PO SCH (10:46)
[2021-04-25] MEDS: ferrous gluconate 324mg tablet PO SCH ×3 (10:46→18:00)
[2021-04-25] MEDS: oxybutynin 5mg tablet PO SCH ×2 (10:46→20:09)
[2021-04-25] MEDS: levoTHYROXINE 100mcg tablet PO SCH (10:47)
[2021-04-25] MEDS: lactobacillus rhamnosus 10,000 MMU CELLS/CAPSULE PO SCH ×2 (10:47→20:09)
[2021-04-25] MEDS: docusate sod 100mg capsule PO SCH ×2 (10:47→20:09)
[2021-04-25] MEDS: nystatin 15 GM powder TP SCH ×2 (10:49→20:10)
[2021-04-25] MEDS: amiodarone 200mg tablet PO SCH (10:49)
[2021-04-25] MEDS: traMADol 50MG tablet PO SCH ×2 (10:49→20:09)
[2021-04-25 11:00] VITALS: BP 120/91
[2021-04-25] MEDS ORDERED: ondansetron/PF 4mg/2ml inj IV PRN (13:35)
[2021-04-25 18:00] VITALS: BP 112/72
--- NOTE | 2021-04-25 18:30 | NUR ---
Problems reprioritized. Patient report given, questions answered & plan of care reviewed with MILLA Saldaña.
[2021-04-25] MEDS: meropenem inj 1 GM in normal saline 100ml IV soln 100 ML IV SCH (20:09)
[2021-04-25] MEDS ORDERED: VANCOMYCIN LEVEL IV ONE (22:30)
[2021-04-25] MEDS: vancomycin/NS 1 GM ADD-VANTAGE 250 ML IV SCH (23:38)
[2021-04-25] MEDS: TYPE IN GENERIC & BRAND NAME OF PATIENT MED STRENGTH & FORM PO SCH (23:39)
[2021-04-26] MEDS: normal saline 1000ml 1,000 ML IV SCH ×2 (05:48→16:14)
[2021-04-26 06:30] VITALS: BP 129/64
--- NOTE | 2021-04-26 06:30 | NUR ---
Patient in room [facility]. I have received report from MILLA John and had the opportunity to ask questions and assume patient care.
[2021-04-26 07:06] LABS: BASOPHILS # (AUTO) 0.1 X10'3 (0-0.2); BASOPHILS % (AUTO) 0.9 % (0-1); EOSINOPHILS # (AUTO) 0.1 X10'3 (0-0.9); EOSINOPHILS % (AUTO) 0.5 % (0-6); HEMATOCRIT 26.3 % (42.0-52.0); HEMOGLOBIN 8.6 g/dl (14.0-17.9); LYMPHOCYTES # (AUTO) 1.1 X10'3 (1.1-4.8); LYMPHOCYTES % (AUTO) 9.2 % (21-51); MEAN CORPUSCULAR HEMOGLOBIN 30.1 PG (27.0-31.0); MEAN CORPUSCULAR HGB CONC 32.8 g/dL (33.0-36.5); MONOCYTES # (AUTO) 1.7 X10'3 (0-0.9); MONOCYTES % (AUTO) 14.5 % (2-12); NEUTROPHILS # (AUTO) 9.1 X10'3 (1.8-7.7); NEUTROPHILS % (AUTO) 74.9 % (42-75); PLATELET COUNT 67 X10'3 (140-440); RED BLOOD COUNT 2.86 X10'6 (4.70-6.10); RED CELL DISTRIBUTION WIDTH 17.5 % (11.5-14.5); WHITE BLOOD COUNT 12.1 X10'3 (4.5-11.0)
[2021-04-26 07:21] LABS: APTT 26 SECONDS (22-32)
[2021-04-26 07:29] LABS: ALANINE AMINOTRANSFERASE 13 U/L (12-78); ALBUMIN 2.8 G/DL (3.4-5.0); ALBUMIN/GLOBULIN RATIO 0.9 (1.1-1.5); ALKALINE PHOSPHATASE 39 IU/L (46-116); ANION GAP 2 (8-16); ASPARTATE AMINO TRANSFERASE 8 U/L (10-37); BILIRUBIN,TOTAL 0.4 MG/DL (0.1-1.0); BLOOD UREA NITROGEN 10 MG/DL (7-18); BUN/CREATININE RATIO 10.2 (5.4-32.0); CHLORIDE 110 MMOL/L (99-107); CREATININE 0.98 MG/DL (0.60-1.10); GLUCOSE 91 MG/DL (70-104); POTASSIUM 4.3 MMOL/L (3.5-5.1); SODIUM 141 MMOL/L (135-145); TOTAL CARBON DIOXIDE 28.9 MMOL/L (24-32); eGFR 73 ML/MIN
[2021-04-26] MEDS: K and/or MAG REPLACEMENT MC SCH ×2 (08:00→20:00)
[2021-04-26 08:02] LABS: ANISOCYTOSIS 1+; ELLIPTOCYTES FEW; PLATELET ESTIMATE DECREASED; SCHISTOCYTES FEW; TOTAL CELLS COUNTED 100
[2021-04-26] MEDS: finasteride 5mg tablet PO SCH (09:57)
[2021-04-26] MEDS: TYPE IN GENERIC & BRAND NAME OF PATIENT MED STRENGTH & FORM PO SCH ×2 (09:57→21:05)
[2021-04-26] MEDS: ferrous gluconate 324mg tablet PO SCH ×3 (09:58→17:49)
[2021-04-26] MEDS: docusate sod 100mg capsule PO SCH ×2 (09:58→21:04)
[2021-04-26] MEDS: tamsulosin 0.4mg capsule PO SCH ×2 (09:58→21:04)
[2021-04-26] MEDS: lactobacillus rhamnosus 10,000 MMU CELLS/CAPSULE PO SCH ×2 (09:58→21:04)
[2021-04-26] MEDS: amiodarone 200mg tablet PO SCH (09:58)
[2021-04-26] MEDS: traMADol 50MG tablet PO SCH ×2 (10:00→21:05)
[2021-04-26] MEDS: levoTHYROXINE 100mcg tablet PO SCH (10:00)
[2021-04-26] MEDS: meropenem inj 1 GM in normal saline 100ml IV soln 100 ML IV SCH ×2 (10:01→21:13)
[2021-04-26] MEDS: oxybutynin 5mg tablet PO SCH ×2 (10:01→21:04)
[2021-04-26] MEDS: nystatin 15 GM powder TP SCH ×2 (10:02→21:08)
[2021-04-26] MEDS: VANCOMYCIN 1GM/200ML IVPB 200 ML IV SCH (16:14)
--- NOTE | 2021-04-26 18:40 | NUR ---
Problems reprioritized. Patient report given, questions answered & plan of care reviewed with MILLA Alejandro.
--- NOTE | 2021-04-26 19:10 | NUR ---
Patient in room [facility]. I have received report from Palmer Mcdonald and had the opportunity to ask questions and assume patient care. Addendum: 04/26/21 at 1911 by Flavia Daugherty RN Amended: Links added.
[2021-04-26 20:00] VITALS: BP 114/54
[2021-04-27] VITALS: BP 118/65
[2021-04-27] MEDS: normal saline 1000ml 1,000 ML IV SCH ×2 (02:03→14:00)
--- NOTE | 2021-04-27 02:23 | NUR ---
skin care done lien changed and pt leaked from huerta noted small old pinky sized clot flushed from huerta irrigated as ordered.
[2021-04-27] MEDS: VANCOMYCIN 1GM/200ML IVPB 200 ML IV SCH ×2 (03:41→16:31)
--- NOTE | 2021-04-27 06:18 | NUR ---
Problems reprioritized. Patient report given, questions answered & plan of care reviewed with Karina Mcdonald. Addendum: 04/27/21 at 0619 by Flavia Daugherty RN Amended: Links added.
--- NOTE | 2021-04-27 06:20 | NUR ---
Patient in room [facility]. I have received report from MILLA Alejandro and had the opportunity to ask questions and assume patient care.
[2021-04-27 06:30] VITALS: BP 126/70
[2021-04-27 06:43] LABS: BASOPHILS # (AUTO) 0.1 X10'3 (0-0.2); BASOPHILS % (AUTO) 1.4 % (0-1); EOSINOPHILS # (AUTO) 0.1 X10'3 (0-0.9); EOSINOPHILS % (AUTO) 0.8 % (0-6); HEMATOCRIT 25.9 % (42.0-52.0); HEMOGLOBIN 8.6 g/dl (14.0-17.9); LYMPHOCYTES # (AUTO) 1.5 X10'3 (1.1-4.8); LYMPHOCYTES % (AUTO) 16.4 % (21-51); MEAN CORPUSCULAR HEMOGLOBIN 30.2 PG (27.0-31.0); MEAN CORPUSCULAR VOLUME 91.6 FL (78-98); MONOCYTES # (AUTO) 1.3 X10'3 (0-0.9); MONOCYTES % (AUTO) 14.1 % (2-12); NEUTROPHILS # (AUTO) 6.1 X10'3 (1.8-7.7); NEUTROPHILS % (AUTO) 67.3 % (42-75); PLATELET COUNT 66 X10'3 (140-440); RED BLOOD COUNT 2.83 X10'6 (4.70-6.10); RED CELL DISTRIBUTION WIDTH 17.5 % (11.5-14.5)
[2021-04-27 07:05] LABS: ALANINE AMINOTRANSFERASE 15 U/L (12-78); ALBUMIN 2.7 G/DL (3.4-5.0); ALBUMIN/GLOBULIN RATIO 0.9 (1.1-1.5); ALKALINE PHOSPHATASE 35 IU/L (46-116); ANION GAP 3 (8-16); ASPARTATE AMINO TRANSFERASE 11 U/L (10-37); BILIRUBIN,TOTAL 0.3 MG/DL (0.1-1.0); BLOOD UREA NITROGEN 10 MG/DL (7-18); CALCIUM 8.4 MG/DL (8.5-10.1); CHLORIDE 111 MMOL/L (99-107); CREATININE 0.91 MG/DL (0.60-1.10); GLUCOSE 90 MG/DL (70-104); POTASSIUM 4.5 MMOL/L (3.5-5.1); SODIUM 143 MMOL/L (135-145); TOTAL CARBON DIOXIDE 29.4 MMOL/L (24-32); TOTAL PROTEIN 5.7 G/DL (6.4-8.2); eGFR 80 ML/MIN
[2021-04-27] MEDS: K and/or MAG REPLACEMENT MC SCH ×2 (07:33→18:56)
[2021-04-27 07:49] LABS: ANISOCYTOSIS 1+; PLATELET ESTIMATE DECREASED; TOTAL CELLS COUNTED 100
[2021-04-27 07:50] LABS: BURR CELLS FEW; ELLIPTOCYTES FEW; SCHISTOCYTES FEW
[2021-04-27] MEDS: levoTHYROXINE 100mcg tablet PO SCH (09:10)
[2021-04-27] MEDS: TYPE IN GENERIC & BRAND NAME OF PATIENT MED STRENGTH & FORM PO SCH ×2 (09:10→19:52)
[2021-04-27] MEDS: traMADol 50MG tablet PO SCH ×2 (09:11→19:52)
[2021-04-27] MEDS: tamsulosin 0.4mg capsule PO SCH ×2 (09:11→19:51)
[2021-04-27] MEDS: docusate sod 100mg capsule PO SCH ×2 (09:11→19:51)
[2021-04-27] MEDS: ferrous gluconate 324mg tablet PO SCH ×3 (09:11→17:48)
[2021-04-27] MEDS: oxybutynin 5mg tablet PO SCH ×2 (09:11→19:51)
[2021-04-27] MEDS: lactobacillus rhamnosus 10,000 MMU CELLS/CAPSULE PO SCH ×2 (09:11→19:51)
[2021-04-27] MEDS: amiodarone 200mg tablet PO SCH (09:11)
[2021-04-27] MEDS: meropenem inj 1 GM in normal saline 100ml IV soln 100 ML IV SCH ×2 (09:11→19:51)
[2021-04-27] MEDS: finasteride 5mg tablet PO SCH (09:12)
[2021-04-27] MEDS: nystatin 15 GM powder TP SCH ×2 (09:12→19:53)
[2021-04-27 11:00] VITALS: BP 130/85
--- NOTE | 2021-04-27 13:28 | NUR ---
Initial: Pt admitted w/ hematuria and UTI per EMR. Pt currently on Heart Healthy diet w/ low PO intake, avg 40% x 11 meals not meeting needs. Recommend liberalizing to Regular diet in view of geriatric age and poor PO intake. Additionally recommend Ensure Enlive TID to help meet nutrient needs. LBM 04/26. Will continue to monitor and make recommendations as appropriate. Recs: 1. Liberalize to Regular diet 2. Ensure Enlive TID; pending MD verification 3. Bowel care per rx 4. Scaled wts Addendum: 04/27/21 at [address] Amended: Links added.
[2021-04-27] MEDS ORDERED: ondansetron 4mg rapidly disintigrating tab PO PRN (16:40)
[2021-04-27 18:00] VITALS: BP 136/74
[2021-04-27] MEDS ORDERED: lactose-reduced food (Ensure Enlive) - 237ml bottle PO SCH (18:00)
--- NOTE | 2021-04-27 18:10 | NUR ---
Problems reprioritized. Patient report given, questions answered & plan of care reviewed with MILLA Hatch.
[2021-04-28] VITALS: BP 123/78
[2021-04-28] MEDS: normal saline 1000ml 1,000 ML IV SCH ×2 (02:10→12:35)
[2021-04-28] MEDS ORDERED: VANCOMYCIN LEVEL IV ONE (03:30)
[2021-04-28 03:37] LABS: BASOPHILS # (AUTO) 0.1 X10'3 (0-0.2); BASOPHILS % (AUTO) 0.9 % (0-1); EOSINOPHILS % (AUTO) 0.3 % (0-6); HEMATOCRIT 26.4 % (42.0-52.0); HEMOGLOBIN 8.7 g/dl (14.0-17.9); LYMPHOCYTES # (AUTO) 1.1 X10'3 (1.1-4.8); LYMPHOCYTES % (AUTO) 10.6 % (21-51); MEAN CORPUSCULAR HEMOGLOBIN 30.1 PG (27.0-31.0); MEAN CORPUSCULAR VOLUME 91.1 FL (78-98); MEAN PLATELET VOLUME 10.8 FL (7.4-10.4); MONOCYTES # (AUTO) 1.4 X10'3 (0-0.9); MONOCYTES % (AUTO) 13.3 % (2-12); NEUTROPHILS # (AUTO) 7.9 X10'3 (1.8-7.7); NEUTROPHILS % (AUTO) 74.9 % (42-75); PLATELET COUNT 67 X10'3 (140-440); RED CELL DISTRIBUTION WIDTH 17.3 % (11.5-14.5); WHITE BLOOD COUNT 10.6 X10'3 (4.5-11.0)
[2021-04-28] MEDS: VANCOMYCIN 1GM/200ML IVPB 200 ML IV SCH (03:40)
[2021-04-28 03:58] LABS: ALANINE AMINOTRANSFERASE 19 U/L (12-78); ALBUMIN 2.7 G/DL (3.4-5.0); ALBUMIN/GLOBULIN RATIO 0.8 (1.1-1.5); ALKALINE PHOSPHATASE 38 IU/L (46-116); ANION GAP 8 (8-16); ASPARTATE AMINO TRANSFERASE 15 U/L (10-37); BILIRUBIN,TOTAL 0.4 MG/DL (0.1-1.0); BLOOD UREA NITROGEN 11 MG/DL (7-18); BUN/CREATININE RATIO 12.1 (5.4-32.0); CALCIUM 8.6 MG/DL (8.5-10.1); CHLORIDE 107 MMOL/L (99-107); CREATININE 0.91 MG/DL (0.60-1.10); GLUCOSE 97 MG/DL (70-104); POTASSIUM 3.8 MMOL/L (3.5-5.1); SODIUM 141 MMOL/L (135-145); eGFR 80 ML/MIN
[2021-04-28 04:58] LABS: ANISOCYTOSIS 1+; PLATELET ESTIMATE DECREASED; TOTAL CELLS COUNTED 100
[2021-04-28 04:59] LABS: BURR CELLS FEW; ELLIPTOCYTES FEW; POLYCHROMASIA FEW; SCHISTOCYTES FEW; TEAR DROP CELLS FEW
--- NOTE | 2021-04-28 06:19 | NUR ---
Problems reprioritized. Patient report given, questions answered & plan of care reviewed with WONG. Addendum: 04/28/21 at 0619 by Chas Crump RN Amended: Links added.
--- NOTE | 2021-04-28 06:53 | NUR ---
Patient in room [facility]. I have received report from MILLA WALKER and had the opportunity to ask questions and assume patient care.
[2021-04-28] MEDS: traMADol 50MG tablet PO SCH (08:00)
[2021-04-28] MEDS: K and/or MAG REPLACEMENT MC SCH (08:00)
[2021-04-28 08:16] VITALS: BP 126/68
[2021-04-28] MEDS: tamsulosin 0.4mg capsule PO SCH (08:43)
[2021-04-28] MEDS: lactobacillus rhamnosus 10,000 MMU CELLS/CAPSULE PO SCH (08:43)
[2021-04-28] MEDS: meropenem inj 1 GM in normal saline 100ml IV soln 100 ML IV SCH (08:43)
[2021-04-28] MEDS: oxybutynin 5mg tablet PO SCH (08:44)
[2021-04-28] MEDS: TYPE IN GENERIC & BRAND NAME OF PATIENT MED STRENGTH & FORM PO SCH (08:44)
[2021-04-28] MEDS: ferrous gluconate 324mg tablet PO SCH ×2 (08:44→12:49)
[2021-04-28] MEDS: docusate sod 100mg capsule PO SCH (08:44)
[2021-04-28] MEDS: levoTHYROXINE 100mcg tablet PO SCH (08:45)
[2021-04-28] MEDS: amiodarone 200mg tablet PO SCH (08:45)
[2021-04-28] MEDS: finasteride 5mg tablet PO SCH (08:46)
[2021-04-28] MEDS: nystatin 15 GM powder TP SCH (08:47)
[2021-04-28 11:00] VITALS: BP 123/83
--- NOTE | 2021-04-28 15:23 | NUR ---
PATIENT STABLE AND APPROPRIATE FOR DISCHARGE, IVS TAKEN OUT, EDUCATION GIVEN, ALL BELONGINGS SENT WITH PATIENT, PATIENT TAKEN TO LOBBY IN PERSONAL WHEELCHAIR TO AN AWAITING TRANSPORT TEAM FROM [facility] WHERE PATIENT LIV[facility]
[2021-04-28] MEDS ORDERED: traMADol 50MG tablet PO PRN (20:00)
== END 2021-04-28 15:23 | disposition home health service (06) | DRG 690 ==
LOC: ER 21:36 → ED HOLD 04-23 02:49 → UNDOADMIN 04-23 02:49 → EDBEDREQ 04-23 03:03 → SUR 3N 04-23 08:00 → ED HOLD 04-23 08:00 → UNDODISIN 04-28 15:23
PROVIDERS: ADMIT Family Medicine; ATTEND Family Medicine
PROC: 30233R1 Transfusion of Nonautologous Platelets into Peripheral Vein, Percutaneous Approach (ICD-10-PCS; 2021-04-23)
PROC: BW211ZZ Computerized Tomography (CT Scan) of Abdomen and Pelvis using Low Osmolar Contrast (ICD-10-PCS; 2021-04-23)
PROC: 0T2BX0Z Change Drainage Device in Bladder, External Approach (ICD-10-PCS; principal; 2021-04-24)
PROC: 0TCB7ZZ Extirpation of Matter from Bladder, Via Natural or Artificial Opening (ICD-10-PCS; 2021-04-24)
DX: N30.21 Other chronic cystitis with hematuria (principal); Z16.24 Resistance to multiple antibiotics; N13.8 Other obstructive and reflux uropathy; D69.6 Thrombocytopenia, unspecified; Z66 Do not resuscitate; B95.2 Enterococcus as the cause of diseases classified elsewhere; E03.9 Hypothyroidism, unspecified; B96.20 Unspecified Escherichia coli [E. coli] as the cause of diseases classified elsewhere; D64.9 Anemia, unspecified; E78.00 Pure hypercholesterolemia, unspecified; N40.1 Benign prostatic hyperplasia with lower urinary tract symptoms; G83.9 Paralytic syndrome, unspecified; E78.5 Hyperlipidemia, unspecified; G83.10 Monoplegia of lower limb affecting unspecified side; I12.9 Hypertensive chronic kidney disease with stage 1 through stage 4 chronic kidney disease, or unspecified chronic kidney disease; I48.91 Unspecified atrial fibrillation; N18.9 Chronic kidney disease, unspecified; Z86.61 Personal history of infections of the central nervous system; Z86.73 Personal history of transient ischemic attack (TIA), and cerebral infarction without residual deficits; Z79.01 Long term (current) use of anticoagulants; Z90.49 Acquired absence of other specified parts of digestive tract; Z99.3 Dependence on wheelchair; Z74.01 Bed confinement status; Z88.0 Allergy status to penicillin; Z87.440 Personal history of urinary (tract) infections; Z82.49 Family history of ischemic heart disease and other diseases of the circulatory system
CPT/HCPCS: 36415; 36430; 74178; 80053; 80202; 81001; 83605; 83735; 84132; 85007; 85008; 85025; 85027; 85610; 85730; 86885; 86900; 86901; 87040; 87077; 87081; 87088; 87186; 97110; 99285; G0378; J1580; J2185; J2405; J3370; J3490; J7030; P9035; Q9967

== ENCOUNTER 2021-05-17 11:13 | Emergency (ER) | payer MEDICARE, OTHER, MEDICAID ==
[~2021-05-17] VITALS: Ht 177.8 cm; Wt 90.9 kg
[~2021-05-17 11:13] MED LIST changes: +AMIO200T61 PO; -CEPH-585 PO; +FINA5TAB11 PO; +OXYB5TAB16 PO; +TRAM50TA2 PO
[2021-05-17 11:17] VITALS: BP 116/86
[2021-05-17] MEDS ORDERED: cephalexin 500mg capsule PO ONE (11:25)
[2021-05-17] MEDS ORDERED: CEPH-585 PO (11:27)
== END 2021-05-17 14:02 ==
LOC: ER 11:13
DX: L89.90 Pressure ulcer of unspecified site, unspecified stage (principal); R33.9 Retention of urine, unspecified; N39.0 Urinary tract infection, site not specified; R53.1 Weakness; E78.00 Pure hypercholesterolemia, unspecified; I10 Essential (primary) hypertension; E03.9 Hypothyroidism, unspecified; Z86.73 Personal history of transient ischemic attack (TIA), and cerebral infarction without residual deficits; Z87.440 Personal history of urinary (tract) infections; Z90.89 Acquired absence of other organs; Z98.890 Other specified postprocedural states; Z95.1 Presence of aortocoronary bypass graft; Z72.89 Other problems related to lifestyle; Z88.0 Allergy status to penicillin; Z79.2 Long term (current) use of antibiotics; Z79.899 Other long term (current) drug therapy
CPT/HCPCS: 99283

== ENCOUNTER 2021-06-17 14:07 | Emergency (ER) | payer MEDICARE, OTHER, MEDICAID ==
[~2021-06-17] VITALS: Ht 177.8 cm; Wt 90.9 kg
[~2021-06-17 14:07] MED LIST changes: +CEPH-585 PO
[2021-06-17] MEDS ORDERED: HYDROcodone/acetaminophen 10/325mg tab PO ONE (14:45)
[2021-06-17 16:04] VITALS: BP 141/88
== END 2021-06-17 16:06 | disposition home or self-care (01) ==
LOC: ER 14:08
DX: M25.561 Pain in right knee (principal); E78.00 Pure hypercholesterolemia, unspecified; I10 Essential (primary) hypertension; E03.9 Hypothyroidism, unspecified; Z86.73 Personal history of transient ischemic attack (TIA), and cerebral infarction without residual deficits; Z87.440 Personal history of urinary (tract) infections; Z90.89 Acquired absence of other organs; Z98.890 Other specified postprocedural states; Z95.1 Presence of aortocoronary bypass graft; Z72.89 Other problems related to lifestyle; Z88.0 Allergy status to penicillin; Z79.2 Long term (current) use of antibiotics; Z79.899 Other long term (current) drug therapy
CPT/HCPCS: 99284

== ENCOUNTER 2021-06-20 13:11 | Inpatient (IN) | payer MEDICARE, OTHER, MEDICAID ==
[~2021-06-20] VITALS: Ht 177.8 cm; Wt 95.0 kg
[2021-06-20] MEDS ORDERED: ondansetron/PF 4mg/2ml inj IV PRN (14:00)
[2021-06-20] MEDS ORDERED: acetaminophen 325mg tablet PO PRN (14:00)
[2021-06-20] MEDS ORDERED: magnesium 4gm in 100ml NS 100 ML IV PRN (14:00)
[2021-06-20] MEDS ORDERED: potassium Cl 20 mEq SR tablet PO PRN (14:00)
[2021-06-20] MEDS ORDERED: ondansetron 4mg rapidly disintigrating tab PO PRN (14:00)
[2021-06-20] MEDS ORDERED: HYDROmorphone/PF 0.2 MG/ML SYRINGE IV PRN (14:00)
[2021-06-20] MEDS ORDERED: mag hydrox/Alum hydrox/simeth 30ml oral suspension PO PRN (14:00)
[2021-06-20] MEDS ORDERED: bisacodyl 10mg suppository rectal RC PRN (14:00)
[2021-06-20] MEDS ORDERED: magnesium 2GM in 50ml NS 50 ML IV PRN (14:00)
[2021-06-20] MEDS ORDERED: metoclopramide 5 mg/ml inj IV PRN (14:00)
[2021-06-20] MEDS ORDERED: magnesium Cl slow-release 64mg tablet PO PRN (14:00)
[2021-06-20] MEDS ORDERED: PERFLUTREN PROTEIN-A MICROSPHR (Optison) 0.22 MG/ML 3ML VIAL IV ONE (14:00)
[2021-06-20] MEDS ORDERED: magnesium hydroxide 30ml (MOM) UD suspension PO PRN (14:00)
[2021-06-20] MEDS ORDERED: HYDROmorphone inj. 0.5 MG/0.5 ML DISP.SYRIN IV PRN (14:00)
[2021-06-20] MEDS ORDERED: potassium CL 10mEq/100ml bag 100 ML IV PRN (14:00)
[2021-06-20] MEDS ORDERED: acetaminophen 650mg rectal suppository RC PRN (14:00)
[2021-06-20] MEDS ORDERED: CETI10TA19 PO (14:46)
[2021-06-20] MEDS ORDERED: PER5325T PO (14:46)
[2021-06-20] MEDS ORDERED: TEMA15CA PO (14:46)
[2021-06-20] MEDS ORDERED: DOCU100C40 PO (14:46)
[2021-06-20] MEDS ORDERED: vancomycin/NS 1 GM ADD-VANTAGE 250 ML IV ONE (15:15)
[2021-06-20 15:21] LABS: BASOPHILS % (AUTO) 0.3 % (0-1); CREATININE 1.38 MG/DL (0.60-1.10); EOSINOPHILS % (AUTO) 0.1 % (0-6); HEMATOCRIT 27.9 % (42.0-52.0); HEMOGLOBIN 8.8 g/dl (14.0-17.9); LYMPHOCYTES # (AUTO) 0.6 X10'3 (1.1-4.8); MEAN CORPUSCULAR HEMOGLOBIN 27.5 PG (27.0-31.0); MEAN CORPUSCULAR HGB CONC 31.5 g/dL (33.0-36.5); MEAN CORPUSCULAR VOLUME 87.5 FL (78-98); MEAN PLATELET VOLUME 10.5 FL (7.4-10.4); MONOCYTES # (AUTO) 3.5 X10'3 (0-0.9); NEUTROPHILS # (AUTO) 15.3 X10'3 (1.8-7.7); NEUTROPHILS % (AUTO) 78.6 % (42-75); PLATELET COUNT 310 X10'3 (140-440); RED BLOOD COUNT 3.19 X10'6 (4.70-6.10); RED CELL DISTRIBUTION WIDTH 18.9 % (11.5-14.5); WHITE BLOOD COUNT 19.4 X10'3 (4.5-11.0); eGFR 49 ML/MIN
[2021-06-20] MEDS ORDERED: CYAN500T9 PO (15:24)
[2021-06-20] MEDS ORDERED: LEVO150T8 PO (15:24)
[2021-06-20] MEDS ORDERED: ASCO-10 PO (15:24)
[2021-06-20 15:25] LABS: APTT 29 SECONDS (22-32)
[2021-06-20] MEDS ORDERED: APIX5TAB3 PO (15:27)
[2021-06-20 15:39] LABS: ANISOCYTOSIS 2+; PLATELET ESTIMATE NORMAL; TOTAL CELLS COUNTED 100
[2021-06-20 15:40] LABS: LARGE PLATELETS FEW
[2021-06-20 15:41] LABS: HYPOCHROMASIA 1+; POLYCHROMASIA 1+; SCHISTOCYTES FEW
[2021-06-20 15:46] LABS: ALANINE AMINOTRANSFERASE 434 U/L (12-78); ALBUMIN 2.6 G/DL (3.4-5.0); ALBUMIN/GLOBULIN RATIO 0.5 (1.1-1.5); ALKALINE PHOSPHATASE 68 IU/L (46-116); ANION GAP 14 (8-16); ASPARTATE AMINO TRANSFERASE 171 U/L (10-37); BILIRUBIN,TOTAL 0.8 MG/DL (0.1-1.0); BLOOD UREA NITROGEN 32 MG/DL (7-18); BUN/CREATININE RATIO 23.5 (5.4-32.0); CALCIUM 8.6 MG/DL (8.5-10.1); CHLORIDE 98 MMOL/L (99-107); CREATININE 1.36 MG/DL (0.60-1.10); GLUCOSE 123 MG/DL (70-104); MAGNESIUM 2.3 MG/DL (1.5-2.4); PHOSPHORUS 2.3 MG/DL (2.3-4.5); POTASSIUM 3.7 MMOL/L (3.5-5.1); SODIUM 138 MMOL/L (135-145); TOTAL CARBON DIOXIDE 26.5 MMOL/L (24-32); eGFR 50 ML/MIN
[2021-06-20 16:00] VITALS: BP 119/62
[2021-06-20] MEDS: cefTRIAXone 1g/NS 100ml IVPB 100 ML IV SCH (16:53)
[2021-06-20] MEDS: normal saline 1000ml 1,000 ML IV SCH (16:53)
[2021-06-20] MEDS ORDERED: iohexol 300mg/ml 100ml inj. ONE (17:52)
[2021-06-20 18:00] VITALS: BP 111/59
--- NOTE | 2021-06-20 18:00 | NUR ---
Patient in room PCU 3022. I have received report from KALE LOYOLA and had the opportunity to ask questions and assume patient care.
[2021-06-20] MEDS: [UNRECOGNIZED DRUG - OTHER] PO SCH (20:00)
[2021-06-20] MEDS ORDERED: docusate sod 100mg capsule PO SCH (20:00)
[2021-06-20] MEDS: K and/or MAG REPLACEMENT MC SCH (20:00)
[2021-06-20] MEDS: docusate sod 100mg capsule PO SCH (20:18)
[2021-06-20] MEDS: temazepam 15mg capsule PO SCH (20:18)
[2021-06-20] MEDS: tamsulosin 0.4mg capsule PO SCH (20:18)
[2021-06-20] MEDS: oxybutynin 5mg tablet PO SCH (20:18)
[2021-06-20] MEDS ORDERED: temazepam 15mg capsule PO PRN (21:00)
[2021-06-20] MEDS: acetaminophen 325mg tablet PO PRN (22:45)
[2021-06-21 02:00] VITALS: BP 109/54
[2021-06-21 06:00] VITALS: BP 111/59
--- NOTE | 2021-06-21 06:12 | NUR ---
Problems reprioritized. Patient report given, questions answered & plan of care reviewed with Rosa pereira.
[2021-06-21] MEDS: amiodarone 200mg tablet PO SCH (07:17)
[2021-06-21] MEDS: tamsulosin 0.4mg capsule PO SCH ×2 (07:17→20:39)
[2021-06-21] MEDS: levoTHYROXINE 75mcg tablet PO SCH (07:17)
[2021-06-21] MEDS: cetirizine 10mg tablet PO SCH (07:17)
[2021-06-21] MEDS: docusate sod 100mg capsule PO SCH ×2 (07:17→20:39)
[2021-06-21] MEDS: oxybutynin 5mg tablet PO SCH ×2 (07:18→20:39)
[2021-06-21] MEDS: cefTRIAXone 1g/NS 100ml IVPB 100 ML IV SCH (07:18)
[2021-06-21] MEDS: finasteride 5mg tablet PO SCH (08:00)
[2021-06-21] MEDS: K and/or MAG REPLACEMENT MC SCH ×2 (08:00→20:00)
[2021-06-21] MEDS: [UNRECOGNIZED DRUG - OTHER] PO SCH ×2 (08:00→20:00)
[2021-06-21 08:34] LABS: BASOPHILS # (AUTO) 0.1 X10'3 (0-0.2); BASOPHILS % (AUTO) 0.3 % (0-1); EOSINOPHILS % (AUTO) 0.2 % (0-6); HEMATOCRIT 23.5 % (42.0-52.0); HEMOGLOBIN 7.5 g/dl (14.0-17.9); LYMPHOCYTES # (AUTO) 0.5 X10'3 (1.1-4.8); LYMPHOCYTES % (AUTO) 2.6 % (21-51); MEAN CORPUSCULAR HGB CONC 31.9 g/dL (33.0-36.5); MEAN CORPUSCULAR VOLUME 87.7 FL (78-98); MEAN PLATELET VOLUME 10.5 FL (7.4-10.4); MONOCYTES # (AUTO) 4.9 X10'3 (0-0.9); MONOCYTES % (AUTO) 24.6 % (2-12); NEUTROPHILS # (AUTO) 14.4 X10'3 (1.8-7.7); NEUTROPHILS % (AUTO) 72.3 % (42-75); PLATELET COUNT 277 X10'3 (140-440); RED BLOOD COUNT 2.68 X10'6 (4.70-6.10); RED CELL DISTRIBUTION WIDTH 18.3 % (11.5-14.5); WHITE BLOOD COUNT 19.9 X10'3 (4.5-11.0)
[2021-06-21 09:04] LABS: APTT 29 SECONDS (22-32)
[2021-06-21 09:12] LABS: ALANINE AMINOTRANSFERASE 285 U/L (12-78); ALBUMIN 2.1 G/DL (3.4-5.0); ALBUMIN/GLOBULIN RATIO 0.5 (1.1-1.5); ALKALINE PHOSPHATASE 52 IU/L (46-116); ANION GAP 9 (8-16); ASPARTATE AMINO TRANSFERASE 77 U/L (10-37); BILIRUBIN,TOTAL 0.6 MG/DL (0.1-1.0); BLOOD UREA NITROGEN 21 MG/DL (7-18); BUN/CREATININE RATIO 19.8 (5.4-32.0); CALCIUM 8.1 MG/DL (8.5-10.1); CHLORIDE 103 MMOL/L (99-107); CHOL/HDL RATIO 4.7 (0.00-4.99); CHOLESTEROL 80 MG/DL (0-200); CREATININE 1.06 MG/DL (0.60-1.10); GLUCOSE 98 MG/DL (70-104); HDL CHOLESTEROL 17 MG/DL (35-60); LDL CHOLESTEROL 54 MG/DL (50-100); MAGNESIUM 2.2 MG/DL (1.5-2.4); POTASSIUM 3.6 MMOL/L (3.5-5.1); SODIUM 139 MMOL/L (135-145); TOTAL CARBON DIOXIDE 27.1 MMOL/L (24-32); TOTAL PROTEIN 6.4 G/DL (6.4-8.2); TRIGLYCERIDES 63 MG/DL (20-135); eGFR 67 ML/MIN
[2021-06-21 09:56] LABS: ANISOCYTOSIS 2+; PLATELET ESTIMATE NORMAL; TARGET CELLS FEW; TEAR DROP CELLS FEW
[2021-06-21] MEDS: normal saline 1000ml 1,000 ML IV SCH ×3 (10:00→20:43)
[2021-06-21 10:37] LABS: HEMOGLOBIN A1C 5.1 % (4.5-6.2)
[2021-06-21 11:00] VITALS: BP 113/54
[2021-06-21] MEDS: vancomycin/NS 1 GM ADD-VANTAGE 250 ML IV SCH (12:00)
[2021-06-21 12:16] LABS: CLARITY,URINE CLEAR (Clear); COLOR,URINE YELLOW (Yellow); GLUCOSE, URINE NEGATIVE (Neg); KETONES,URINE NEGATIVE (Neg); LEUKOCYTE ESTERASE ,URINE TRACE (Neg); NITRITES, URINE NEGATIVE (Neg); OCCULT BLOOD,URINE SMALL (Neg); PROTEIN,URINE NEGATIVE (Neg)
[2021-06-21 12:20] LABS: UA COLLECTION TYPE FOLEY CATH
[2021-06-21 12:21] LABS: BACTERIA,URINE 1+ /HPF (Neg); HYALINE CASTS 0-3 /LPF (NEGATIVE); MUCUS STRANDS FEW /LPF (Neg); RBC,URINE 0-2 /HPF (0-2); SQUAMOUS EPITHELIAL CELL,UR FEW /LPF (FEW); WBC,URINE 20-30 /HPF (0-4)
[2021-06-21] MEDS ORDERED: bisacodyl 10mg suppository rectal RC ONE (13:40)
[2021-06-21 15:00] VITALS: BP 99/57
[2021-06-21] MEDS ORDERED: vancomycin/NS 1 GM ADD-VANTAGE 250 ML IV SCH (16:00)
[2021-06-21] MEDS ORDERED: mineral oil 133ml enema RC ONE (16:15)
--- NOTE | 2021-06-21 17:56 | NUR ---
brother brought in cellphone, I plugged in environmental engineering aide and phone in port behind patient bed
[2021-06-21 18:00] VITALS: BP 123/60
--- NOTE | 2021-06-21 18:30 | NUR ---
Problems reprioritized. Patient report given, questions answered & plan of care reviewed with Kiara LOYOLA.
[2021-06-21] MEDS ORDERED: COVID-19 VAC, TRIS(PFIZER)/PF 30 MCG/0.3 ML VIAL IMVAC ONE (18:45)
[2021-06-21] MEDS: enoxaparin 100mg/ml syringe SUBCUT SCH (20:39)
[2021-06-21] MEDS: temazepam 15mg capsule PO SCH (20:39)
[2021-06-21 22:00] VITALS: BP 128/65
[2021-06-22 02:00] VITALS: BP 113/55
[2021-06-22] MEDS: vancomycin/NS 1 GM ADD-VANTAGE 250 ML IV SCH ×2 (02:42→16:00)
[2021-06-22] MEDS: acetaminophen 325mg tablet PO PRN (02:50)
[2021-06-22 06:00] VITALS: BP 99/53
[2021-06-22 07:27] LABS: BASOPHILS # (AUTO) 0.1 X10'3 (0-0.2); BASOPHILS % (AUTO) 0.5 % (0-1); EOSINOPHILS % (AUTO) 0 % (0-6); HEMATOCRIT 22.8 % (42.0-52.0); HEMOGLOBIN 7.2 g/dl (14.0-17.9); LYMPHOCYTES # (AUTO) 0.5 X10'3 (1.1-4.8); LYMPHOCYTES % (AUTO) 1.9 % (21-51); MEAN CORPUSCULAR HEMOGLOBIN 27.7 PG (27.0-31.0); MEAN CORPUSCULAR HGB CONC 31.7 g/dL (33.0-36.5); MEAN CORPUSCULAR VOLUME 87.6 FL (78-98); MEAN PLATELET VOLUME 10.2 FL (7.4-10.4); MONOCYTES # (AUTO) 5.6 X10'3 (0-0.9); MONOCYTES % (AUTO) 22.3 % (2-12); NEUTROPHILS % (AUTO) 75.3 % (42-75); PLATELET COUNT 284 X10'3 (140-440); RED BLOOD COUNT 2.61 X10'6 (4.70-6.10)
[2021-06-22 07:31] LABS: APTT 32 SECONDS (22-32)
[2021-06-22 07:39] LABS: ALANINE AMINOTRANSFERASE 188 U/L (12-78); ALBUMIN/GLOBULIN RATIO 0.5 (1.1-1.5); ALKALINE PHOSPHATASE 48 IU/L (46-116); ANION GAP 7 (8-16); ASPARTATE AMINO TRANSFERASE 41 U/L (10-37); BILIRUBIN,TOTAL 0.6 MG/DL (0.1-1.0); BLOOD UREA NITROGEN 13 MG/DL (7-18); BUN/CREATININE RATIO 13.8 (5.4-32.0); CALCIUM 7.6 MG/DL (8.5-10.1); CHLORIDE 108 MMOL/L (99-107); CREATININE 0.94 MG/DL (0.60-1.10); GLUCOSE 105 MG/DL (70-104); POTASSIUM 3.6 MMOL/L (3.5-5.1); SODIUM 140 MMOL/L (135-145); TOTAL CARBON DIOXIDE 24.7 MMOL/L (24-32); TOTAL PROTEIN 6.3 G/DL (6.4-8.2); eGFR 77 ML/MIN
[2021-06-22 07:49] LABS: WHITE BLOOD COUNT 25.3 X10'3 (4.5-11.0)
[2021-06-22] MEDS: oxybutynin 5mg tablet PO SCH ×2 (07:54→19:57)
[2021-06-22] MEDS: cetirizine 10mg tablet PO SCH (07:54)
[2021-06-22] MEDS: docusate sod 100mg capsule PO SCH ×2 (07:54→19:57)
[2021-06-22] MEDS: amiodarone 200mg tablet PO SCH (07:54)
[2021-06-22] MEDS: levoTHYROXINE 75mcg tablet PO SCH (07:54)
[2021-06-22] MEDS: tamsulosin 0.4mg capsule PO SCH ×2 (07:54→19:55)
[2021-06-22] MEDS: finasteride 5mg tablet PO SCH (07:55)
[2021-06-22] MEDS: cefTRIAXone 1g/NS 100ml IVPB 100 ML IV SCH (07:58)
[2021-06-22] MEDS: enoxaparin 100mg/ml syringe SUBCUT SCH ×2 (07:58→19:57)
[2021-06-22] MEDS: normal saline 1000ml 1,000 ML IV SCH ×2 (07:59→16:00)
[2021-06-22] MEDS: K and/or MAG REPLACEMENT MC SCH ×2 (08:00→20:00)
[2021-06-22 10:11] LABS: TOTAL CELLS COUNTED 100
[2021-06-22 10:12] LABS: ANISOCYTOSIS 2+; HYPOCHROMASIA 1+; PLATELET ESTIMATE NORMAL; POLYCHROMASIA 2+
[2021-06-22 10:13] LABS: SCHISTOCYTES FEW; TARGET CELLS FEW
[2021-06-22 11:00] VITALS: BP 113/58
--- NOTE | 2021-06-22 11:22 | NUR ---
Dr. Elizabeth was made aware of pt WBC 25.3
[2021-06-22 15:00] VITALS: BP 116/62
[2021-06-22] MEDS: [UNRECOGNIZED DRUG - OTHER] PO SCH ×2 (17:38→19:59)
[2021-06-22 18:00] VITALS: BP 106/56
[2021-06-22] MEDS: sodium polystyrene sulfonate ENEMA 30gm/120ml RC ONE ×2 (19:41→21:47)
[2021-06-22] MEDS: HYDROcodone/acetaminophen 10/325mg tab PO PRN (19:56)
[2021-06-22] MEDS: temazepam 15mg capsule PO SCH (21:21)
[2021-06-22 22:00] VITALS: BP 103/54
[2021-06-22] MEDS ORDERED: VANCOMYCIN LEVEL IV ONE (23:30)
[2021-06-23] VITALS (10 sets, daily range): BP systolic 104–149; BP diastolic 36–66
[2021-06-23] MEDS: vancomycin/NS 1 GM ADD-VANTAGE 250 ML IV SCH ×2 (01:07→12:09)
[2021-06-23] MEDS: normal saline 1000ml 1,000 ML IV SCH ×2 (01:09→12:22)
[2021-06-23] MEDS: HYDROcodone/acetaminophen 10/325mg tab PO PRN ×2 (05:17→20:55)
[2021-06-23 06:03] LABS: BASOPHILS # (AUTO) 0.1 X10'3 (0-0.2); BASOPHILS % (AUTO) 0.4 % (0-1); EOSINOPHILS % (AUTO) 0.1 % (0-6); HEMATOCRIT 22.2 % (42.0-52.0); LYMPHOCYTES % (AUTO) 3.9 % (21-51); MEAN CORPUSCULAR HEMOGLOBIN 27.3 PG (27.0-31.0); MEAN CORPUSCULAR HGB CONC 31.6 g/dL (33.0-36.5); MEAN CORPUSCULAR VOLUME 86.6 FL (78-98); MONOCYTES % (AUTO) 24.1 % (2-12); NEUTROPHILS # (AUTO) 17.7 X10'3 (1.8-7.7); NEUTROPHILS % (AUTO) 71.5 % (42-75); PLATELET COUNT 286 X10'3 (140-440); RED BLOOD COUNT 2.56 X10'6 (4.70-6.10); RED CELL DISTRIBUTION WIDTH 18.5 % (11.5-14.5); WHITE BLOOD COUNT 24.8 X10'3 (4.5-11.0)
[2021-06-23 06:11] LABS: APTT 35 SECONDS (22-32)
[2021-06-23 06:27] LABS: ALANINE AMINOTRANSFERASE 133 U/L (12-78); ALBUMIN 1.9 G/DL (3.4-5.0); ALBUMIN/GLOBULIN RATIO 0.5 (1.1-1.5); ALKALINE PHOSPHATASE 45 IU/L (46-116); ANION GAP 10 (8-16); ASPARTATE AMINO TRANSFERASE 30 U/L (10-37); BILIRUBIN,TOTAL 0.5 MG/DL (0.1-1.0); BLOOD UREA NITROGEN 9 MG/DL (7-18); CALCIUM 7.7 MG/DL (8.5-10.1); CHLORIDE 105 MMOL/L (99-107); GLUCOSE 104 MG/DL (70-104); MAGNESIUM 1.8 MG/DL (1.5-2.4); POTASSIUM 3.3 MMOL/L (3.5-5.1); SODIUM 139 MMOL/L (135-145); TOTAL CARBON DIOXIDE 23.6 MMOL/L (24-32); TOTAL PROTEIN 5.9 G/DL (6.4-8.2); eGFR 81 ML/MIN
[2021-06-23] MEDS: [UNRECOGNIZED DRUG - OTHER] PO SCH ×2 (08:22→20:56)
[2021-06-23] MEDS: finasteride 5mg tablet PO SCH (08:22)
[2021-06-23] MEDS: levoTHYROXINE 75mcg tablet PO SCH (08:23)
[2021-06-23] MEDS: cetirizine 10mg tablet PO SCH (08:23)
[2021-06-23] MEDS: oxybutynin 5mg tablet PO SCH ×2 (08:23→20:55)
[2021-06-23] MEDS: docusate sod 100mg capsule PO SCH ×2 (08:23→20:55)
[2021-06-23] MEDS: amiodarone 200mg tablet PO SCH (08:23)
[2021-06-23] MEDS: tamsulosin 0.4mg capsule PO SCH ×2 (08:23→20:55)
[2021-06-23] MEDS: potassium Cl 20 mEq SR tablet PO PRN ×2 (08:24→12:09)
[2021-06-23] MEDS: cefTRIAXone 1g/NS 100ml IVPB 100 ML IV SCH (08:25)
[2021-06-23] MEDS: enoxaparin 100mg/ml syringe SUBCUT SCH (08:25)
[2021-06-23 08:44] LABS: ANISOCYTOSIS 2+; HYPOCHROMASIA 1+; PLATELET ESTIMATE NORMAL; POLYCHROMASIA 2+; TOTAL CELLS COUNTED 100
[2021-06-23 08:45] LABS: ELLIPTOCYTES FEW
[2021-06-23] MEDS ORDERED: Potassium Cl inj 20 MEQ in normal saline 1000ml 990 ML IV SCH (12:35)
[2021-06-23] MEDS ORDERED: furosemide 20 MG/2 ML vial IV ONE (15:20)
[2021-06-23] MEDS ORDERED: regadenoson 0.4mg/5ml syringe IV PRN (17:55)
[2021-06-23] MEDS ORDERED: nitroGLYCERIN 0.4mg SUBLingual tab SL PRN (17:55)
[2021-06-23] MEDS ORDERED: aminophylline 500mg/20ml vial IV PRN (17:55)
[2021-06-23] MEDS ORDERED: metoprolol tartrate 1mg/ml inj IV PRN (17:55)
--- NOTE | 2021-06-23 18:20 | NUR ---
Problems reprioritized. Patient report given, questions answered & plan of care reviewed with MILLA Coats.
[2021-06-23] MEDS: K and/or MAG REPLACEMENT MC SCH (20:00)
[2021-06-23] MEDS: furosemide 20 MG/2 ML vial IV SCH (20:54)
[2021-06-23] MEDS: temazepam 15mg capsule PO SCH (20:55)
--- NOTE | 2021-06-23 22:30 | NUR ---
Transfered to surgical unit .Alert and oriented no distress noted.
[2021-06-23] MEDS: ipratropium/albuterol 3ml nebule NEB PRN (23:51)
[2021-06-24] VITALS (7 sets, daily range): BP systolic 105–124; BP diastolic 50–73
[2021-06-24] MEDS: vancomycin/NS 1 GM ADD-VANTAGE 250 ML IV SCH ×2 (00:21→12:38)
--- NOTE | 2021-06-24 06:13 | NUR ---
report to Barbie pereira. pt has been npo since midnight
[2021-06-24 06:15] LABS: BASOPHILS # (AUTO) 0.1 X10'3 (0-0.2); BASOPHILS % (AUTO) 0.4 % (0-1); EOSINOPHILS % (AUTO) 0.2 % (0-6); HEMOGLOBIN 8.2 g/dl (14.0-17.9); LYMPHOCYTES # (AUTO) 0.9 X10'3 (1.1-4.8); LYMPHOCYTES % (AUTO) 4.3 % (21-51); MEAN CORPUSCULAR HEMOGLOBIN 27.9 PG (27.0-31.0); MEAN CORPUSCULAR HGB CONC 31.6 g/dL (33.0-36.5); MEAN CORPUSCULAR VOLUME 88.1 FL (78-98); MEAN PLATELET VOLUME 9.8 FL (7.4-10.4); MONOCYTES # (AUTO) 4.7 X10'3 (0-0.9); MONOCYTES % (AUTO) 22.9 % (2-12); NEUTROPHILS # (AUTO) 14.8 X10'3 (1.8-7.7); NEUTROPHILS % (AUTO) 72.2 % (42-75); PLATELET COUNT 286 X10'3 (140-440); RED BLOOD COUNT 2.95 X10'6 (4.70-6.10); RED CELL DISTRIBUTION WIDTH 18.8 % (11.5-14.5); WHITE BLOOD COUNT 20.5 X10'3 (4.5-11.0)
--- NOTE | 2021-06-24 06:19 | NUR ---
Patient in room [facility]. I have received report from MILLA DOLL and had the opportunity to ask questions and assume patient care.
[2021-06-24 06:32] LABS: ALANINE AMINOTRANSFERASE 109 U/L (12-78); ALBUMIN 1.9 G/DL (3.4-5.0); ALBUMIN/GLOBULIN RATIO 0.5 (1.1-1.5); ALKALINE PHOSPHATASE 44 IU/L (46-116); ANION GAP 7 (8-16); ASPARTATE AMINO TRANSFERASE 26 U/L (10-37); BILIRUBIN,TOTAL 0.6 MG/DL (0.1-1.0); BLOOD UREA NITROGEN 10 MG/DL (7-18); BUN/CREATININE RATIO 10.3 (5.4-32.0); CALCIUM 7.7 MG/DL (8.5-10.1); CHLORIDE 108 MMOL/L (99-107); CREATININE 0.97 MG/DL (0.60-1.10); GLUCOSE 97 MG/DL (70-104); MAGNESIUM 1.7 MG/DL (1.5-2.4); POTASSIUM 3.5 MMOL/L (3.5-5.1); SODIUM 140 MMOL/L (135-145); TOTAL CARBON DIOXIDE 25.4 MMOL/L (24-32); TOTAL PROTEIN 6.1 G/DL (6.4-8.2); eGFR 74 ML/MIN
[2021-06-24 06:56] LABS: ANISOCYTOSIS 2+; LARGE PLATELETS FEW; PLATELET ESTIMATE NORMAL; TOTAL CELLS COUNTED 100
[2021-06-24 06:57] LABS: ELLIPTOCYTES FEW; HYPOCHROMASIA 1+; SCHISTOCYTES FEW
[2021-06-24 06:58] LABS: POLYCHROMASIA 1+
[2021-06-24] MEDS: ipratropium/albuterol 3ml nebule NEB PRN ×2 (07:34→20:12)
[2021-06-24] MEDS: levoTHYROXINE 75mcg tablet PO SCH (07:46)
[2021-06-24] MEDS: oxybutynin 5mg tablet PO SCH ×2 (07:47→20:07)
[2021-06-24] MEDS: tamsulosin 0.4mg capsule PO SCH ×2 (07:47→21:14)
[2021-06-24] MEDS: potassium chloride 10mEq ER tablet PO SCH (07:47)
[2021-06-24] MEDS: amiodarone 200mg tablet PO SCH (07:47)
[2021-06-24] MEDS: cetirizine 10mg tablet PO SCH (07:47)
[2021-06-24] MEDS: docusate sod 100mg capsule PO SCH ×2 (07:48→20:06)
[2021-06-24] MEDS: finasteride 5mg tablet PO SCH (07:48)
[2021-06-24] MEDS: K and/or MAG REPLACEMENT MC SCH ×2 (08:00→20:00)
[2021-06-24] MEDS ORDERED: furosemide 20 MG/2 ML vial IV SCH (08:00)
[2021-06-24] MEDS: [UNRECOGNIZED DRUG - OTHER] PO SCH ×2 (08:00→21:13)
[2021-06-24] MEDS: furosemide 20 MG/2 ML vial IV SCH ×2 (09:32→20:03)
[2021-06-24] MEDS: cefTRIAXone 1g/NS 100ml IVPB 100 ML IV SCH (10:18)
--- NOTE | 2021-06-24 11:50 | NUR ---
Student Medication Administration: For this medication-pass time frame, all medication were reviewed, dispensed, administered and documented per hospital policy by cait Martinez.
--- NOTE | 2021-06-24 11:50 | NUR ---
Student documentation: I have reviewed and agree with all interventions, assessments performed and documented by Michelle, nursing home assistant.
[2021-06-24] MEDS ORDERED: albuterol 2.5 MG/3 ML nebule NEB PRN (12:55)
--- NOTE | 2021-06-24 13:17 | NUR ---
Nursing reports that the patient's MASD to his groin and posterior scrotum appears to be worsening with bright red excoriation and musty odor. In for assessment. Greeted and explained intent, the pt is agreeable to assessment. The area is with bright red, bumpy skin and has a musty odor. The patient states that it is very painful. New MD orders obtained. Report given to the primary nurse. Addendum: 06/24/21 at 1322 by Rochelle Rogel RN Amended: Links added.
[2021-06-24] MEDS: HYDROcodone/acetaminophen 5mg/325mg tablet PO PRN ×2 (13:36→21:11)
--- NOTE | 2021-06-24 16:21 | NUR ---
Student documentation: I have reviewed and agree with all interventions, assessments performed and documented by Nai, clinical nursing professor.
--- NOTE | 2021-06-24 16:22 | NUR ---
Student Medication Administration: For this medication-pass time frame, all medication were reviewed, dispensed, administered and documented per hospital policy by cait Trimble.
--- NOTE | 2021-06-24 18:20 | NUR ---
HELD PATIENT'S HOME CHEMO MED DUE TO CONTRAINDICATION IS INFECTION, PER IT IS OK TO HOLD FOR NOW
--- NOTE | 2021-06-24 18:21 | NUR ---
Problems reprioritized. Patient report given, questions answered & plan of care reviewed with MILLA DOLL.
[2021-06-24] MEDS: temazepam 15mg capsule PO SCH (21:00)
--- NOTE | 2021-06-24 21:52 | NUR ---
2039 informed by charge nurse musa hopkins was discharged . Addendum: 06/24/21 at 2153 by Lolis Dewey RN error in above charting. lonny hopkins
[2021-06-25] MEDS: vancomycin/NS 1 GM ADD-VANTAGE 250 ML IV SCH ×2 (00:55→12:05)
[2021-06-25 06:38] LABS: BASOPHILS # (AUTO) 0.1 X10'3 (0-0.2); BASOPHILS % (AUTO) 0.4 % (0-1); EOSINOPHILS # (AUTO) 0.1 X10'3 (0-0.9); RED BLOOD COUNT 2.84 X10'6 (4.70-6.10)
[2021-06-25 06:41] LABS: EOSINOPHILS % (AUTO) 0.2 % (0-6); HEMATOCRIT 24.9 % (42.0-52.0); LYMPHOCYTES # (AUTO) 0.7 X10'3 (1.1-4.8); LYMPHOCYTES % (AUTO) 3.2 % (21-51); MEAN CORPUSCULAR HGB CONC 31.9 g/dL (33.0-36.5); MEAN CORPUSCULAR VOLUME 87.8 FL (78-98); MEAN PLATELET VOLUME 9.8 FL (7.4-10.4); MONOCYTES # (AUTO) 5.9 X10'3 (0-0.9); MONOCYTES % (AUTO) 25.6 % (2-12); NEUTROPHILS # (AUTO) 16.4 X10'3 (1.8-7.7); NEUTROPHILS % (AUTO) 70.6 % (42-75); PLATELET COUNT 296 X10'3 (140-440); RED CELL DISTRIBUTION WIDTH 18.2 % (11.5-14.5); WHITE BLOOD COUNT 23.2 X10'3 (4.5-11.0)
[2021-06-25 06:48] LABS: ALANINE AMINOTRANSFERASE 95 U/L (12-78); ALBUMIN/GLOBULIN RATIO 0.5 (1.1-1.5); ALKALINE PHOSPHATASE 43 IU/L (46-116); ANION GAP 6 (8-16); ASPARTATE AMINO TRANSFERASE 36 U/L (10-37); BILIRUBIN,TOTAL 0.5 MG/DL (0.1-1.0); BLOOD UREA NITROGEN 12 MG/DL (7-18); BUN/CREATININE RATIO 14.3 (5.4-32.0); CALCIUM 7.8 MG/DL (8.5-10.1); CHLORIDE 109 MMOL/L (99-107); CREATININE 0.84 MG/DL (0.60-1.10); GLUCOSE 111 MG/DL (70-104); POTASSIUM 3.5 MMOL/L (3.5-5.1); SODIUM 143 MMOL/L (135-145); TOTAL CARBON DIOXIDE 28.1 MMOL/L (24-32); TOTAL PROTEIN 6.3 G/DL (6.4-8.2); eGFR 87 ML/MIN
[2021-06-25 07:27] LABS: ANISOCYTOSIS 2+; PLATELET ESTIMATE NORMAL; TOTAL CELLS COUNTED 100
[2021-06-25 07:28] LABS: LARGE PLATELETS FEW
[2021-06-25 07:32] VITALS: BP 115/56
[2021-06-25] MEDS: K and/or MAG REPLACEMENT MC SCH ×2 (08:00→20:00)
[2021-06-25] MEDS: [UNRECOGNIZED DRUG - OTHER] PO SCH ×2 (08:00→20:00)
[2021-06-25] MEDS: docusate sod 100mg capsule PO SCH ×2 (08:00→20:23)
[2021-06-25] MEDS: ipratropium/albuterol 3ml nebule NEB PRN ×2 (08:04→19:40)
[2021-06-25] MEDS: tamsulosin 0.4mg capsule PO SCH ×2 (08:28→20:24)
[2021-06-25] MEDS: cefTRIAXone 1g/NS 100ml IVPB 100 ML IV SCH (08:28)
[2021-06-25] MEDS: cetirizine 10mg tablet PO SCH (08:28)
[2021-06-25] MEDS: amiodarone 200mg tablet PO SCH (08:28)
[2021-06-25] MEDS: levoTHYROXINE 75mcg tablet PO SCH (08:28)
[2021-06-25] MEDS: oxybutynin 5mg tablet PO SCH ×2 (08:28→20:24)
[2021-06-25] MEDS: potassium chloride 10mEq ER tablet PO SCH (08:28)
[2021-06-25] MEDS: finasteride 5mg tablet PO SCH (08:29)
[2021-06-25] MEDS: furosemide 20 MG/2 ML vial IV SCH ×2 (08:29→19:39)
[2021-06-25 12:14] VITALS: BP 121/57
--- NOTE | 2021-06-25 12:26 | NUR ---
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 Pt has full thickness penis cellulitis w/ scrotal MASD per WOC note. PO mostly 75-100% avg regular meals past two days w/ no lunch intake documented yesterday and currently NPO for OR today per EMR. Noted now on heart healthy diet per EMR; pt would benefit from Magdi shake BIDBD and Ensure High Protein WL for wound healing needs MD notified. LBM 06/23. Will continue to monitor for further nutrition intervention needs this admit. Rec: 1. continue heart healthy diet per MD; consider liberalizing to regular if PO declines given age 2. Magdi shake BIDBD and Ensure High Protein WL; pending MD verification in EMR 3. multivitamin/mineral for wound healing 4. routine bowel care 5. scaled wt this admit; subsequent weekly wts Addendum: 06/25/21 at [address] Amended: Links added. Addendum: 06/25/21 at [address] UPDATE* RD d/w RN regarding multivitamin/mineral for wound healing if MD agreeable.
[2021-06-25] MEDS: lactose-reduced food (Ensure High Protein) 237ml bottle PO SCH (12:30)
--- NOTE | 2021-06-25 18:19 | NUR ---
Gave report to Lolis Mcdonald
[2021-06-25] MEDS: JUVEN Shake w/Arg/Glut/Ca2+Bmb (Juven 19.3gm) pkt 240ml PO SCH (18:30)
[2021-06-25 20:00] VITALS: BP 122/58
[2021-06-25] MEDS: heparin, porcine 5000 units/ml vial SQ SCH (20:26)
[2021-06-25 21:19] LABS: ABG BASE EXCESS 2.4 mmol/L (-2.0-2.0); ABG HCO3 25.5 mmol/L (22.0-26.0); ABG OXYGEN SATURATION 93.2 % (94-97); ABG PCO2 (T) 34.6 mmHg (35.0-48.0); ABG PO2 (T) 63.1 mmHg (75.0-100.0); ALLEN'S TEST POSITIVE; FCOHb 0.5 % (0.0-3.9); FLOW 2 L/min; FMetHb 0.2 % (0.0-1.5); FO2Hb 92.5 % (94-97); TOTAL HEMOGLOBIN 12.6 G/dl (14.0-18.0)
[2021-06-25] MEDS ORDERED: furosemide 20 MG/2 ML vial IV ONE (21:45)
[2021-06-25 21:50] VITALS: BP 107/56
--- NOTE | 2021-06-25 22:31 | NUR ---
report to nataliia pereirainternet application developer
[2021-06-25] MEDS: temazepam 15mg capsule PO SCH (23:18)
[2021-06-25 23:44] VITALS: BP 121/50
[2021-06-26] MEDS: vancomycin/NS 1 GM ADD-VANTAGE 250 ML IV SCH ×2 (00:06→16:33)
--- NOTE | 2021-06-26 00:36 | NUR ---
0409 pt to tele unit
--- NOTE | 2021-06-26 00:37 | NUR ---
all belongings taken with pt including wheelchair and glasses
[2021-06-26 02:00] VITALS: BP 114/50
[2021-06-26 03:00] VITALS: BP 114/61
[2021-06-26 05:13] LABS: HEMATOCRIT 24.7 % (42.0-52.0); HEMOGLOBIN 7.9 g/dl (14.0-17.9); MEAN CORPUSCULAR HEMOGLOBIN 27.7 PG (27.0-31.0); MEAN CORPUSCULAR VOLUME 86.4 FL (78-98); MEAN PLATELET VOLUME 9.8 FL (7.4-10.4); PLATELET COUNT 269 X10'3 (140-440); RED BLOOD COUNT 2.86 X10'6 (4.70-6.10); RED CELL DISTRIBUTION WIDTH 18.2 % (11.5-14.5)
[2021-06-26 05:20] LABS: WHITE BLOOD COUNT 28.4 X10'3 (4.5-11.0)
[2021-06-26 05:30] LABS: ALBUMIN 1.9 G/DL (3.4-5.0); ANION GAP 7 (8-16); BLOOD UREA NITROGEN 12 MG/DL (7-18); BUN/CREATININE RATIO 12.4 (5.4-32.0); CALCIUM 7.9 MG/DL (8.5-10.1); CHLORIDE 101 MMOL/L (99-107); CREATININE 0.97 MG/DL (0.60-1.10); GLUCOSE 123 MG/DL (70-104); POTASSIUM 3.3 MMOL/L (3.5-5.1); SODIUM 136 MMOL/L (135-145); TOTAL CARBON DIOXIDE 27.8 MMOL/L (24-32); eGFR 74 ML/MIN
[2021-06-26 06:00] VITALS: BP 109/59
[2021-06-26] MEDS: JUVEN Shake w/Arg/Glut/Ca2+Bmb (Juven 19.3gm) pkt 240ml PO SCH ×2 (07:30→17:30)
[2021-06-26] MEDS: K and/or MAG REPLACEMENT MC SCH ×3 (08:00→20:00)
[2021-06-26] MEDS: furosemide 20 MG/2 ML vial IV SCH ×3 (08:00→20:51)
[2021-06-26] MEDS ORDERED: magnesium 2GM in 50ml NS 50 ML IV PRN (08:40)
[2021-06-26] MEDS ORDERED: magnesium Cl slow-release 64mg tablet PO PRN (08:40)
[2021-06-26] MEDS ORDERED: potassium CL 10mEq/100ml bag 100 ML IV PRN (08:40)
[2021-06-26] MEDS ORDERED: magnesium 4gm in 100ml NS 100 ML IV PRN (08:40)
[2021-06-26] MEDS ORDERED: potassium Cl 20 mEq SR tablet PO PRN ×2 (08:40)
[2021-06-26 09:13] LABS: MAGNESIUM 1.5 MG/DL (1.5-2.4); POTASSIUM 3.5 MMOL/L (3.5-5.1)
[2021-06-26] MEDS: cetirizine 10mg tablet PO SCH (09:32)
[2021-06-26] MEDS: levoTHYROXINE 75mcg tablet PO SCH (09:32)
[2021-06-26] MEDS: tamsulosin 0.4mg capsule PO SCH ×2 (09:32→20:53)
[2021-06-26] MEDS: amiodarone 200mg tablet PO SCH (09:32)
[2021-06-26] MEDS: oxybutynin 5mg tablet PO SCH ×2 (09:32→20:53)
[2021-06-26] MEDS: multivitamins, therapeutics tablet PO SCH (09:33)
[2021-06-26] MEDS: finasteride 5mg tablet PO SCH (09:36)
[2021-06-26] MEDS: heparin, porcine 5000 units/ml vial SQ SCH ×2 (09:37→20:51)
[2021-06-26] MEDS: docusate sod 100mg capsule PO SCH ×2 (09:38→20:53)
[2021-06-26] MEDS ORDERED: methylPREDNISolone sod succ 125mg/2ml vial IV ONE (10:25)
[2021-06-26 11:00] VITALS: BP 119/64
[2021-06-26] MEDS: [UNRECOGNIZED DRUG - OTHER] PO SCH ×2 (11:38→20:54)
[2021-06-26] MEDS: cefTRIAXone 1g/NS 100ml IVPB 100 ML IV SCH (12:22)
[2021-06-26] MEDS: lactose-reduced food (Ensure High Protein) 237ml bottle PO SCH ×3 (12:30→17:50)
[2021-06-26] MEDS ORDERED: iohexol 350MG/ML 100ml bottle IV ONE (15:04)
[2021-06-26] MEDS: methylPREDNISolone sod succ 125mg/2ml vial IV SCH ×2 (16:33→20:50)
[2021-06-26 18:00] VITALS: BP 111/46
[2021-06-26] MEDS: temazepam 15mg capsule PO SCH (20:52)
[2021-06-26 22:00] VITALS: BP 113/78
[2021-06-27] MEDS: vancomycin/NS 1 GM ADD-VANTAGE 250 ML IV SCH (01:02)
[2021-06-27 02:00] VITALS: BP 115/69
[2021-06-27] MEDS: methylPREDNISolone sod succ 125mg/2ml vial IV SCH ×4 (02:13→20:12)
[2021-06-27 06:19] LABS: BASOPHILS # (AUTO) 0.1 X10'3 (0-0.2); BASOPHILS % (AUTO) 0.2 % (0-1); EOSINOPHILS % (AUTO) 0 % (0-6); HEMATOCRIT 24.7 % (42.0-52.0); LYMPHOCYTES # (AUTO) 0.5 X10'3 (1.1-4.8); MEAN CORPUSCULAR HGB CONC 32.4 g/dL (33.0-36.5); MEAN CORPUSCULAR VOLUME 86.5 FL (78-98); MEAN PLATELET VOLUME 10.1 FL (7.4-10.4); MONOCYTES # (AUTO) 5.4 X10'3 (0-0.9); MONOCYTES % (AUTO) 22.2 % (2-12); NEUTROPHILS # (AUTO) 18.5 X10'3 (1.8-7.7); NEUTROPHILS % (AUTO) 75.6 % (42-75); PLATELET COUNT 275 X10'3 (140-440); RED BLOOD COUNT 2.85 X10'6 (4.70-6.10); RED CELL DISTRIBUTION WIDTH 18.4 % (11.5-14.5); WHITE BLOOD COUNT 24.5 X10'3 (4.5-11.0)
[2021-06-27 06:42] LABS: ALBUMIN 1.9 G/DL (3.4-5.0); ANION GAP 8 (8-16); BLOOD UREA NITROGEN 18 MG/DL (7-18); BUN/CREATININE RATIO 18.2 (5.4-32.0); CALCIUM 8.6 MG/DL (8.5-10.1); CHLORIDE 103 MMOL/L (99-107); CREATININE 0.99 MG/DL (0.60-1.10); GLUCOSE 156 MG/DL (70-104); MAGNESIUM 1.8 MG/DL (1.5-2.4); POTASSIUM 3.4 MMOL/L (3.5-5.1); SODIUM 141 MMOL/L (135-145); TOTAL CARBON DIOXIDE 30.1 MMOL/L (24-32); eGFR 72 ML/MIN
[2021-06-27 07:05] LABS: ANISOCYTOSIS 2+; PLATELET ESTIMATE NORMAL; TOTAL CELLS COUNTED 100
[2021-06-27 07:06] LABS: POIKILOCYTOSIS FEW
[2021-06-27 07:13] VITALS: BP 103/65
[2021-06-27] MEDS: JUVEN Shake w/Arg/Glut/Ca2+Bmb (Juven 19.3gm) pkt 240ml PO SCH ×2 (07:30→17:30)
[2021-06-27] MEDS: levoTHYROXINE 75mcg tablet PO SCH (07:30)
[2021-06-27] MEDS ORDERED: potassium chloride 10mEq ER tablet PO SCH (08:00)
[2021-06-27] MEDS: finasteride 5mg tablet PO SCH (08:00)
[2021-06-27] MEDS: [UNRECOGNIZED DRUG - OTHER] PO SCH ×2 (08:49→20:08)
[2021-06-27] MEDS: furosemide 20 MG/2 ML vial IV SCH ×3 (08:49→20:01)
[2021-06-27] MEDS: tamsulosin 0.4mg capsule PO SCH ×2 (08:50→19:59)
[2021-06-27] MEDS: amiodarone 200mg tablet PO SCH (08:50)
[2021-06-27] MEDS: heparin, porcine 5000 units/ml vial SQ SCH ×2 (08:50→19:54)
[2021-06-27] MEDS: cetirizine 10mg tablet PO SCH (08:50)
[2021-06-27] MEDS: docusate sod 100mg capsule PO SCH ×2 (08:50→20:07)
[2021-06-27] MEDS: oxybutynin 5mg tablet PO SCH ×2 (08:50→19:59)
[2021-06-27] MEDS: cefTRIAXone 1g/NS 100ml IVPB 100 ML IV SCH (08:51)
[2021-06-27] MEDS: multivitamins, therapeutics tablet PO SCH (08:56)
[2021-06-27] MEDS: K and/or MAG REPLACEMENT MC SCH ×4 (08:59→20:00)
[2021-06-27 11:24] VITALS: BP 97/49
[2021-06-27] MEDS ORDERED: VANCOMYCIN LEVEL IV ONE (11:30)
[2021-06-27] MEDS: vancomycin inj. 750 MG in normal saline 250ml IV soln 250 ML IV SCH (14:00)
[2021-06-27 15:27] VITALS: BP 114/60
[2021-06-27 18:00] VITALS: BP 110/56
--- NOTE | 2021-06-27 18:13 | NUR ---
Patient in room PCU 3011. I have received report from KAREN LOYOLA and had the opportunity to ask questions and assume patient care.
[2021-06-27] MEDS: temazepam 15mg capsule PO SCH (20:00)
[2021-06-27 22:00] VITALS: BP 109/64
[2021-06-28] MEDS: vancomycin inj. 750 MG in normal saline 250ml IV soln 250 ML IV SCH ×2 (01:37→13:55)
[2021-06-28] MEDS: methylPREDNISolone sod succ 125mg/2ml vial IV SCH ×4 (01:38→21:35)
[2021-06-28 02:00] VITALS: BP 102/57
--- NOTE | 2021-06-28 05:51 | NUR ---
Problems reprioritized. Patient report given, questions answered & plan of care reviewed with PROJ MGR.
[2021-06-28 06:00] VITALS: BP 103/49
--- NOTE | 2021-06-28 06:34 | NUR ---
Patient in room PCU 3011. I have received report from MILLA Pham and had the opportunity to ask questions and assume patient care.
[2021-06-28 06:55] LABS: BASOPHILS % (AUTO) 0.1 % (0-1); EOSINOPHILS % (AUTO) 0 % (0-6); HEMATOCRIT 25.2 % (42.0-52.0); LYMPHOCYTES # (AUTO) 0.5 X10'3 (1.1-4.8); LYMPHOCYTES % (AUTO) 2.3 % (21-51); MEAN CORPUSCULAR HEMOGLOBIN 27.6 PG (27.0-31.0); MEAN CORPUSCULAR HGB CONC 31.8 g/dL (33.0-36.5); MEAN CORPUSCULAR VOLUME 86.9 FL (78-98); MEAN PLATELET VOLUME 10.4 FL (7.4-10.4); MONOCYTES # (AUTO) 2.1 X10'3 (0-0.9); MONOCYTES % (AUTO) 9.1 % (2-12); NEUTROPHILS # (AUTO) 20.7 X10'3 (1.8-7.7); NEUTROPHILS % (AUTO) 88.5 % (42-75); PLATELET COUNT 257 X10'3 (140-440); RED CELL DISTRIBUTION WIDTH 18.9 % (11.5-14.5); WHITE BLOOD COUNT 23.4 X10'3 (4.5-11.0)
[2021-06-28 07:13] LABS: ALBUMIN 1.9 G/DL (3.4-5.0); ANION GAP 5 (8-16); BLOOD UREA NITROGEN 35 MG/DL (7-18); BUN/CREATININE RATIO 36.1 (5.4-32.0); CALCIUM 8.4 MG/DL (8.5-10.1); CHLORIDE 105 MMOL/L (99-107); CREATININE 0.97 MG/DL (0.60-1.10); GLUCOSE 160 MG/DL (70-104); MAGNESIUM 1.8 MG/DL (1.5-2.4); POTASSIUM 3.5 MMOL/L (3.5-5.1); SODIUM 139 MMOL/L (135-145); TOTAL CARBON DIOXIDE 29.4 MMOL/L (24-32); eGFR 74 ML/MIN
[2021-06-28 07:36] LABS: PLATELET ESTIMATE NORMAL; TOTAL CELLS COUNTED 100
[2021-06-28 07:37] LABS: ANISOCYTOSIS 3+; SCHISTOCYTES FEW; TARGET CELLS FEW
[2021-06-28] MEDS: cefTRIAXone 1g/NS 100ml IVPB 100 ML IV SCH (07:48)
[2021-06-28] MEDS: levoTHYROXINE 75mcg tablet PO SCH (07:49)
[2021-06-28] MEDS: cetirizine 10mg tablet PO SCH (07:49)
[2021-06-28] MEDS: heparin, porcine 5000 units/ml vial SQ SCH ×2 (07:49→21:36)
[2021-06-28] MEDS: docusate sod 100mg capsule PO SCH ×2 (07:49→21:36)
[2021-06-28] MEDS: oxybutynin 5mg tablet PO SCH ×2 (07:49→21:37)
[2021-06-28] MEDS: potassium Cl 20 mEq SR tablet PO SCH (07:49)
[2021-06-28] MEDS: tamsulosin 0.4mg capsule PO SCH ×2 (07:49→21:37)
[2021-06-28] MEDS: multivitamins, therapeutics tablet PO SCH (07:50)
[2021-06-28] MEDS: amiodarone 200mg tablet PO SCH (07:50)
[2021-06-28] MEDS: finasteride 5mg tablet PO SCH (07:50)
[2021-06-28] MEDS: [UNRECOGNIZED DRUG - OTHER] PO SCH ×2 (07:50→21:55)
[2021-06-28] MEDS: JUVEN Shake w/Arg/Glut/Ca2+Bmb (Juven 19.3gm) pkt 240ml PO SCH ×2 (07:51→17:30)
[2021-06-28] MEDS: furosemide 20 MG/2 ML vial IV SCH ×2 (07:53→21:36)
[2021-06-28] MEDS: K and/or MAG REPLACEMENT MC SCH ×3 (08:00→20:00)
--- NOTE | 2021-06-28 09:28 | NUR ---
Reassessment: Noted ST has been consulted for BSS by MD. Pt continues on heart healthy diet, now with a 1.5 L fluid restriction per MD. PO intake fluctuates however overall pt eating well with average 67% PO intake of last six meals. Pt with an rx for Magdi shake BIDBD and Ensure High Protein WL however noted patient had been receiving Ensure High Protein TID and no Magdi shake, this was corrected 06/27 after d/w dietary. Pt documented with 50% PO intake of first Magdi shake, pending documentation of Ensure High Protein acceptance as it's documented to not have been given 06/26 d/t NPO and no documentation for ONS 06/27. Noted pt now receiving routine MVI. LBM 06/27. No further nutrition intervention implemented at this time. Will continue to follow. Recommendations: 1. Liberalize to regular diet in view of geriatric age and lipid panel WNL; 1.5 L fluid restriction per MD 2. Magdi shake BIDBD and Ensure High Protein WL 3. Continue routine MVI for wound healing 4. Routine bowel care 5. Scaled wt this admit; subsequent weekly wts Addendum: 06/28/21 at [address] Amended: Links added.
[2021-06-28 11:00] VITALS: BP 103/53
[2021-06-28] MEDS: lactose-reduced food (Ensure High Protein) 237ml bottle PO SCH (12:30)
[2021-06-28 15:00] VITALS: BP 99/54
[2021-06-28 18:00] VITALS: BP 112/61
--- NOTE | 2021-06-28 18:43 | NUR ---
Problems reprioritized. Patient report given, questions answered & plan of care reviewed with MILLA Rajan.
[2021-06-28] MEDS: temazepam 15mg capsule PO SCH (21:37)
[2021-06-28 22:00] VITALS: BP 114/58
[2021-06-29] MEDS ORDERED: VANCOMYCIN LEVEL IV ONE (01:30)
[2021-06-29 02:00] VITALS: BP 117/62
[2021-06-29 02:30] LABS: ANION GAP 11 (8-16); BLOOD UREA NITROGEN 43 MG/DL (7-18); BUN/CREATININE RATIO 39.4 (5.4-32.0); CALCIUM 8.7 MG/DL (8.5-10.1); CHLORIDE 100 MMOL/L (99-107); CREATININE 1.09 MG/DL (0.60-1.10); GLUCOSE 183 MG/DL (70-104); MAGNESIUM 1.8 MG/DL (1.5-2.4); POTASSIUM 3.3 MMOL/L (3.5-5.1); SODIUM 138 MMOL/L (135-145); VANCOMYCIN,TROUGH 19.3 UG/ML (6.0-14.0); eGFR 65 ML/MIN
[2021-06-29] MEDS: vancomycin inj. 750 MG in normal saline 250ml IV soln 250 ML IV SCH ×2 (02:48→16:19)
[2021-06-29] MEDS: methylPREDNISolone sod succ 125mg/2ml vial IV SCH ×4 (03:00→23:34)
[2021-06-29 06:00] VITALS: BP 114/57
--- NOTE | 2021-06-29 06:00 | NUR ---
Patient in room PCU 3011. I have received report from Radha LOYOLA and had the opportunity to ask questions and assume patient care.
[2021-06-29] MEDS: JUVEN Shake w/Arg/Glut/Ca2+Bmb (Juven 19.3gm) pkt 240ml PO SCH ×2 (07:30→17:30)
[2021-06-29 07:45] LABS: BASOPHILS # (AUTO) 0.1 X10'3 (0-0.2); BASOPHILS % (AUTO) 0.2 % (0-1); EOSINOPHILS % (AUTO) 0 % (0-6); HEMATOCRIT 24.1 % (42.0-52.0); HEMOGLOBIN 7.7 g/dl (14.0-17.9); LYMPHOCYTES # (AUTO) 0.3 X10'3 (1.1-4.8); LYMPHOCYTES % (AUTO) 1.6 % (21-51); MEAN CORPUSCULAR HEMOGLOBIN 27.4 PG (27.0-31.0); MEAN CORPUSCULAR HGB CONC 31.9 g/dL (33.0-36.5); MEAN CORPUSCULAR VOLUME 85.9 FL (78-98); MEAN PLATELET VOLUME 10.7 FL (7.4-10.4); MONOCYTES # (AUTO) 0.7 X10'3 (0-0.9); MONOCYTES % (AUTO) 3.2 % (2-12); PLATELET COUNT 254 X10'3 (140-440); RED BLOOD COUNT 2.81 X10'6 (4.70-6.10); RED CELL DISTRIBUTION WIDTH 18.5 % (11.5-14.5); WHITE BLOOD COUNT 21.1 X10'3 (4.5-11.0)
[2021-06-29] MEDS: K and/or MAG REPLACEMENT MC SCH ×2 (08:00→20:00)
[2021-06-29] MEDS: heparin, porcine 5000 units/ml vial SQ SCH (08:00)
[2021-06-29 09:01] LABS: TOTAL CELLS COUNTED 100
[2021-06-29 09:03] LABS: ANISOCYTOSIS 2+; HYPOCHROMASIA 1+; PLATELET ESTIMATE NORMAL; POLYCHROMASIA 1+
[2021-06-29 09:04] LABS: LARGE PLATELETS FEW; SCHISTOCYTES FEW; STOMATOCYTES FEW; TEAR DROP CELLS 1+
[2021-06-29] MEDS: levoTHYROXINE 75mcg tablet PO SCH (09:16)
[2021-06-29] MEDS: finasteride 5mg tablet PO SCH (09:16)
[2021-06-29] MEDS: cefTRIAXone 1g/NS 100ml IVPB 100 ML IV SCH (09:16)
[2021-06-29] MEDS: tamsulosin 0.4mg capsule PO SCH ×2 (09:16→20:23)
[2021-06-29] MEDS: potassium Cl 20 mEq SR tablet PO SCH (09:16)
[2021-06-29] MEDS: [UNRECOGNIZED DRUG - OTHER] PO SCH ×2 (09:17→20:25)
[2021-06-29] MEDS: furosemide 20 MG/2 ML vial IV SCH ×2 (09:17→20:23)
[2021-06-29] MEDS: docusate sod 100mg capsule PO SCH ×2 (09:18→20:23)
[2021-06-29] MEDS: cetirizine 10mg tablet PO SCH (09:18)
[2021-06-29] MEDS: multivitamins, therapeutics tablet PO SCH (09:18)
[2021-06-29] MEDS: oxybutynin 5mg tablet PO SCH ×2 (09:19→20:23)
[2021-06-29] MEDS: amiodarone 200mg tablet PO SCH (09:19)
[2021-06-29 11:00] VITALS: BP 114/56
[2021-06-29] MEDS: lactose-reduced food (Ensure High Protein) 237ml bottle PO SCH (12:30)
[2021-06-29 15:00] VITALS: BP 124/66
[2021-06-29 18:00] VITALS: BP 116/60
--- NOTE | 2021-06-29 18:23 | NUR ---
Patient in room PCU 3011. I have received report from IRWIN LOYOLA and had the opportunity to ask questions and assume patient care.
--- NOTE | 2021-06-29 18:24 | NUR ---
Problems reprioritized. Patient report given, questions answered & plan of care reviewed with Prudence RN, patient stable at transfer of care.
[2021-06-29] MEDS: temazepam 15mg capsule PO SCH (20:23)
[2021-06-29] MEDS: HYDROcodone/acetaminophen 10/325mg tab PO PRN (20:23)
[2021-06-29 22:00] VITALS: BP 116/60
[2021-06-29] MEDS: potassium Cl 20mEq in NS 1,000 ML IV SCH (23:34)
[2021-06-30] VITALS (13 sets, daily range): BP systolic 100–130; BP diastolic 50–73
[2021-06-30] MEDS: vancomycin inj. 750 MG in normal saline 250ml IV soln 250 ML IV SCH ×2 (01:52→17:59)
[2021-06-30 06:13] LABS: BASOPHILS % (AUTO) 0.1 % (0-1); EOSINOPHILS % (AUTO) 0 % (0-6); HEMATOCRIT 25.1 % (42.0-52.0); HEMOGLOBIN 7.7 g/dl (14.0-17.9); LYMPHOCYTES # (AUTO) 0.4 X10'3 (1.1-4.8); LYMPHOCYTES % (AUTO) 1.5 % (21-51); MEAN CORPUSCULAR HEMOGLOBIN 26.7 PG (27.0-31.0); MEAN CORPUSCULAR HGB CONC 30.6 g/dL (33.0-36.5); MEAN CORPUSCULAR VOLUME 87.2 FL (78-98); MEAN PLATELET VOLUME 10.9 FL (7.4-10.4); MONOCYTES # (AUTO) 0.9 X10'3 (0-0.9); MONOCYTES % (AUTO) 3.6 % (2-12); NEUTROPHILS # (AUTO) 24.6 X10'3 (1.8-7.7); NEUTROPHILS % (AUTO) 94.8 % (42-75); PLATELET COUNT 245 X10'3 (140-440); RED BLOOD COUNT 2.87 X10'6 (4.70-6.10); RED CELL DISTRIBUTION WIDTH 18.9 % (11.5-14.5)
--- NOTE | 2021-06-30 06:28 | NUR ---
Problems reprioritized. Patient report given, questions answered & plan of care reviewed with ROSA RN.
[2021-06-30 06:29] LABS: ALBUMIN 1.8 G/DL (3.4-5.0); ANION GAP 1 (8-16); BLOOD UREA NITROGEN 39 MG/DL (7-18); BUN/CREATININE RATIO 41.5 (5.4-32.0); CALCIUM 8.1 MG/DL (8.5-10.1); CHLORIDE 105 MMOL/L (99-107); CREATININE 0.94 MG/DL (0.60-1.10); GLUCOSE 174 MG/DL (70-104); MAGNESIUM 2.4 MG/DL (1.5-2.4); POTASSIUM 3.6 MMOL/L (3.5-5.1); SODIUM 135 MMOL/L (135-145); TOTAL CARBON DIOXIDE 29.4 MMOL/L (24-32); eGFR 77 ML/MIN
[2021-06-30 06:46] LABS: NUCLEATED RED BLOOD CELLS 1 /100WBC (0-0); TOTAL CELLS COUNTED 100
[2021-06-30 06:47] LABS: ANISOCYTOSIS 2+; ELLIPTOCYTES FEW; LARGE PLATELETS FEW; PLATELET ESTIMATE NORMAL; POLYCHROMASIA FEW; TEAR DROP CELLS FEW
[2021-06-30] MEDS: JUVEN Shake w/Arg/Glut/Ca2+Bmb (Juven 19.3gm) pkt 240ml PO SCH ×2 (07:30→18:02)
[2021-06-30] MEDS: cefTRIAXone 1g/NS 100ml IVPB 100 ML IV SCH (07:48)
[2021-06-30] MEDS: levoTHYROXINE 75mcg tablet PO SCH (07:51)
[2021-06-30] MEDS: finasteride 5mg tablet PO SCH (07:51)
[2021-06-30] MEDS: oxybutynin 5mg tablet PO SCH (07:51)
[2021-06-30] MEDS: potassium Cl 20 mEq SR tablet PO SCH (07:51)
[2021-06-30] MEDS: docusate sod 100mg capsule PO SCH ×2 (07:51→19:42)
[2021-06-30] MEDS: cetirizine 10mg tablet PO SCH (07:51)
[2021-06-30] MEDS: amiodarone 200mg tablet PO SCH (07:51)
[2021-06-30] MEDS: multivitamins, therapeutics tablet PO SCH (07:52)
[2021-06-30] MEDS: tamsulosin 0.4mg capsule PO SCH (07:52)
[2021-06-30] MEDS: furosemide 20 MG/2 ML vial IV SCH ×2 (07:52→19:39)
[2021-06-30] MEDS: K and/or MAG REPLACEMENT MC SCH ×2 (07:53→20:00)
[2021-06-30] MEDS: methylPREDNISolone sod succ 125mg/2ml vial IV SCH (07:53)
[2021-06-30] MEDS: [UNRECOGNIZED DRUG - OTHER] PO SCH ×2 (08:00→19:46)
[2021-06-30] MEDS: heparin, porcine 5000 units/ml vial SQ SCH ×2 (08:00→19:40)
[2021-06-30 10:37] LABS: APTT 24 SECONDS (22-32)
[2021-06-30] MEDS ORDERED: ondansetron/PF 4mg/2ml inj IV PRN (11:25)
[2021-06-30] MEDS ORDERED: labetalol 20mg/4ml (5mg/ml) syringe IV PRN (11:25)
[2021-06-30] MEDS ORDERED: hydrALAZINE 20mg/ml inj. IV PRN (11:25)
[2021-06-30] MEDS ORDERED: ringers solution, lacted 1,000 ML IV SCH (11:25)
[2021-06-30] MEDS ORDERED: fentaNYL/PF 50MCG/1 ML 2ML syringe IV PRN ×2 (11:25)
[2021-06-30] MEDS ORDERED: morphine 2 MG/ML inj. syringe IV PRN (11:25)
[2021-06-30] MEDS ORDERED: morphine 4 MG/ML inj SYRINge IV PRN (11:25)
[2021-06-30] MEDS: potassium Cl 20mEq in NS 1,000 ML IV SCH (11:30)
[2021-06-30] MEDS: lactose-reduced food (Ensure High Protein) 237ml bottle PO SCH (12:30)
--- NOTE | 2021-06-30 14:21 | NUR ---
patient taken to surgery
[2021-06-30] MEDS ORDERED: midazolam 1 mg/ML 2ml injection ONE ×2 (14:57→15:17)
[2021-06-30] MEDS ORDERED: FENTANYL CITRATE/PF 50 MCG/1 ML VIAL ONE (14:57)
[2021-06-30] MEDS ORDERED: albumin (Human) 5% 250ml 250 ML IV ONE (15:00)
--- NOTE | 2021-06-30 16:37 | NUR ---
Received from OR via HOSPITAL BED , accompanied by Anesthesiologist DR WHALEY and report given by Anesthesiolgist. PT PRESENTS WITH PIV 20G RIGHT HAND, ABD DRESSING WITH CATHETER CDI, WITH CATHETER DRAINING 200 MLS. VSS. Addendum: 06/30/21 at 1755 by Maya Wheat RN, RN Amended: Links added.
--- NOTE | 2021-06-30 17:37 | NUR ---
Report called to receiving nurse MAYANK LOYOLA. Transferred via [facility] BED TO ROOM 3011. BED IN LOW LOCKED POSTION WITH CALL LIGHT IN REACH, PT GIVEN TV AND GLASSES AND HOOKED UP TO [employer] MACHINE. Belongings WERE LEFT IN PT ROOM 3011.Special Issues communicated to receiving nurse. Addendum: 06/30/21 at 1755 by Maya Wheat RN RN Amended: Links added.
[2021-06-30] MEDS: temazepam 15mg capsule PO SCH (21:54)
[2021-07-01] MEDS: potassium Cl 20mEq in NS 1,000 ML IV SCH
[2021-07-01 02:00] VITALS: BP 109/62
[2021-07-01] MEDS: vancomycin inj. 750 MG in normal saline 250ml IV soln 250 ML IV SCH ×2 (02:34→13:49)
--- NOTE | 2021-07-01 03:10 | NUR ---
Pt penis is swollen but not draining at this time.
[2021-07-01 06:00] VITALS: BP 110/58
--- NOTE | 2021-07-01 06:16 | NUR ---
Report to Leigh LOYOLA.
--- NOTE | 2021-07-01 06:24 | NUR ---
received report from MILLA Bose Addendum: 07/01/21 at 0615 by Leigh Hicks RN Jarret MAGAÑA RN
[2021-07-01 07:05] LABS: BASOPHILS % (AUTO) 0.1 % (0-1); EOSINOPHILS % (AUTO) 0 % (0-6); HEMATOCRIT 24.6 % (42.0-52.0); HEMOGLOBIN 7.7 g/dl (14.0-17.9); LYMPHOCYTES # (AUTO) 0.6 X10'3 (1.1-4.8); LYMPHOCYTES % (AUTO) 2.3 % (21-51); MEAN CORPUSCULAR HEMOGLOBIN 27.3 PG (27.0-31.0); MEAN CORPUSCULAR HGB CONC 31.3 g/dL (33.0-36.5); MEAN CORPUSCULAR VOLUME 87.1 FL (78-98); MEAN PLATELET VOLUME 10.7 FL (7.4-10.4); MONOCYTES # (AUTO) 2.2 X10'3 (0-0.9); NEUTROPHILS # (AUTO) 24.6 X10'3 (1.8-7.7); NEUTROPHILS % (AUTO) 89.6 % (42-75); PLATELET COUNT 223 X10'3 (140-440); RED BLOOD COUNT 2.82 X10'6 (4.70-6.10); RED CELL DISTRIBUTION WIDTH 18.2 % (11.5-14.5)
[2021-07-01 07:13] LABS: WHITE BLOOD COUNT 27.4 X10'3 (4.5-11.0)
[2021-07-01 07:22] LABS: ALANINE AMINOTRANSFERASE 206 U/L (12-78); ALBUMIN 2.1 G/DL (3.4-5.0); ALBUMIN/GLOBULIN RATIO 0.6 (1.1-1.5); ALKALINE PHOSPHATASE 49 IU/L (46-116); ANION GAP 3 (8-16); ASPARTATE AMINO TRANSFERASE 35 U/L (10-37); BILIRUBIN,TOTAL 0.3 MG/DL (0.1-1.0); BLOOD UREA NITROGEN 36 MG/DL (7-18); BUN/CREATININE RATIO 40.4 (5.4-32.0); CALCIUM 7.6 MG/DL (8.5-10.1); CHLORIDE 111 MMOL/L (99-107); CREATININE 0.89 MG/DL (0.60-1.10); GLUCOSE 103 MG/DL (70-104); POTASSIUM 4.3 MMOL/L (3.5-5.1); SODIUM 145 MMOL/L (135-145); TOTAL CARBON DIOXIDE 31.3 MMOL/L (24-32); TOTAL PROTEIN 5.9 G/DL (6.4-8.2); eGFR 82 ML/MIN
--- NOTE | 2021-07-01 07:39 | NUR ---
PAGER ID: [phone] MESSAGE: [id number], Calvo wbc critical at 27.4 today, also wants suppository ordered oleg [id number]
[2021-07-01] MEDS: multivitamins, therapeutics tablet PO SCH (07:44)
[2021-07-01] MEDS: [UNRECOGNIZED DRUG - OTHER] PO SCH ×2 (07:44→20:22)
[2021-07-01] MEDS: predniSONE 20 mg tablet PO SCH (07:45)
[2021-07-01] MEDS: amiodarone 200mg tablet PO SCH (07:45)
[2021-07-01] MEDS: docusate sod 100mg capsule PO SCH ×2 (07:45→20:21)
[2021-07-01] MEDS: cetirizine 10mg tablet PO SCH (07:45)
[2021-07-01] MEDS: potassium Cl 20 mEq SR tablet PO SCH (07:45)
[2021-07-01] MEDS: cefTRIAXone 1g/NS 100ml IVPB 100 ML IV SCH (07:46)
[2021-07-01] MEDS: levoTHYROXINE 75mcg tablet PO SCH (07:46)
[2021-07-01] MEDS: JUVEN Shake w/Arg/Glut/Ca2+Bmb (Juven 19.3gm) pkt 240ml PO SCH ×2 (07:54→17:30)
[2021-07-01 07:55] LABS: ANISOCYTOSIS 2+; PLATELET ESTIMATE NORMAL; TOTAL CELLS COUNTED 100
[2021-07-01 07:56] LABS: ELLIPTOCYTES FEW; POLYCHROMASIA FEW; TEAR DROP CELLS FEW
[2021-07-01 07:57] LABS: LARGE PLATELETS FEW
[2021-07-01 07:58] LABS: BURR CELLS FEW
[2021-07-01] MEDS: heparin, porcine 5000 units/ml vial SQ SCH (07:58)
[2021-07-01] MEDS: furosemide 20 MG/2 ML vial IV SCH ×2 (07:58→20:21)
[2021-07-01] MEDS: K and/or MAG REPLACEMENT MC SCH ×2 (08:00→20:25)
[2021-07-01 10:45] LABS: OCCULT BLOOD STOOL POSITIVE (Neg)
--- NOTE | 2021-07-01 11:00 | NUR ---
PAGER ID: [phone] MESSAGE: [id number], Crock[place] patient had a large dark bowel movement so i sent a stool for guiac and it is positive. H/h today is 7.7 again after he got a unit of blood yesterday oleg [id number]
--- NOTE | 2021-07-01 11:05 | NUR ---
Spoke to hospitalist, patient to be made NPO and they will contact GI regarding positive guiac stool.
[2021-07-01] MEDS ORDERED: pantoprazole 40MG/NS 100ML BAG 100 ML IV SCH ×2 (11:40→20:00)
[2021-07-01] MEDS ORDERED: pantoprazole 40MG/NS 100ML BAG 100 ML IV ONE (11:44)
[2021-07-01 11:59] VITALS: BP 111/57
[2021-07-01] MEDS: lactose-reduced food (Ensure High Protein) 237ml bottle PO SCH (12:49)
[2021-07-01] MEDS: pantoprazole 40MG/NS 100ML BAG 100 ML IV SCH ×3 (12:51→20:21)
[2021-07-01 15:54] VITALS: BP 117/61
--- NOTE | 2021-07-01 17:15 | NUR ---
Spoke to MD about patients NPO status, they still have not heard from GI about a possible EGD, patient still npo at this time
[2021-07-01 18:00] VITALS: BP 126/62
--- NOTE | 2021-07-01 18:19 | NUR ---
Report given to Sasha LOYOLA
[2021-07-01] MEDS: temazepam 15mg capsule PO SCH (20:21)
[2021-07-01 22:00] VITALS: BP 114/56
[2021-07-02] VITALS (14 sets, daily range): BP systolic 116–146; BP diastolic 51–74
[2021-07-02] MEDS: pantoprazole 40MG/NS 100ML BAG 100 ML IV SCH ×4 (02:04→16:23)
[2021-07-02] MEDS: vancomycin inj. 750 MG in normal saline 250ml IV soln 250 ML IV SCH (02:04)
--- NOTE | 2021-07-02 06:06 | NUR ---
Received patient report from MILLA Baez
[2021-07-02 06:37] LABS: BASOPHILS % (AUTO) 0.2 % (0-1); EOSINOPHILS % (AUTO) 0.2 % (0-6); HEMATOCRIT 26.9 % (42.0-52.0); HEMOGLOBIN 8.4 g/dl (14.0-17.9); LYMPHOCYTES # (AUTO) 1.2 X10'3 (1.1-4.8); LYMPHOCYTES % (AUTO) 4.4 % (21-51); MEAN CORPUSCULAR HEMOGLOBIN 27.6 PG (27.0-31.0); MEAN CORPUSCULAR HGB CONC 31.3 g/dL (33.0-36.5); MEAN CORPUSCULAR VOLUME 88.2 FL (78-98); MEAN PLATELET VOLUME 10.7 FL (7.4-10.4); MONOCYTES # (AUTO) 2.5 X10'3 (0-0.9); MONOCYTES % (AUTO) 9.6 % (2-12); NEUTROPHILS # (AUTO) 22.5 X10'3 (1.8-7.7); NEUTROPHILS % (AUTO) 85.6 % (42-75); PLATELET COUNT 211 X10'3 (140-440); RED BLOOD COUNT 3.05 X10'6 (4.70-6.10)
[2021-07-02 06:42] LABS: WHITE BLOOD COUNT 26.3 X10'3 (4.5-11.0)
--- NOTE | 2021-07-02 07:01 | NUR ---
PAGER ID: [phone] MESSAGE: [id number], Crockett critical wbc of 26.2 today just FYI! :) oleg [id number]
[2021-07-02] MEDS: levoTHYROXINE 75mcg tablet PO SCH (07:02)
[2021-07-02] MEDS: docusate sod 100mg capsule PO SCH ×2 (07:02→20:33)
[2021-07-02] MEDS: multivitamins, therapeutics tablet PO SCH (07:02)
[2021-07-02] MEDS: cetirizine 10mg tablet PO SCH (07:02)
[2021-07-02] MEDS: potassium Cl 20 mEq SR tablet PO SCH (07:02)
[2021-07-02] MEDS: JUVEN Shake w/Arg/Glut/Ca2+Bmb (Juven 19.3gm) pkt 240ml PO SCH ×2 (07:03→17:35)
[2021-07-02] MEDS: K and/or MAG REPLACEMENT MC SCH ×2 (07:03→20:00)
[2021-07-02 07:09] LABS: ALANINE AMINOTRANSFERASE 164 U/L (12-78); ALBUMIN 2.2 G/DL (3.4-5.0); ALBUMIN/GLOBULIN RATIO 0.6 (1.1-1.5); ALKALINE PHOSPHATASE 53 IU/L (46-116); ANION GAP 3 (8-16); ASPARTATE AMINO TRANSFERASE 23 U/L (10-37); BILIRUBIN,TOTAL 0.4 MG/DL (0.1-1.0); BLOOD UREA NITROGEN 28 MG/DL (7-18); BUN/CREATININE RATIO 34.6 (5.4-32.0); CALCIUM 7.6 MG/DL (8.5-10.1); CHLORIDE 111 MMOL/L (99-107); CREATININE 0.81 MG/DL (0.60-1.10); GLUCOSE 94 MG/DL (70-104); POTASSIUM 4.1 MMOL/L (3.5-5.1); SODIUM 146 MMOL/L (135-145); TOTAL CARBON DIOXIDE 32.5 MMOL/L (24-32); TOTAL PROTEIN 5.9 G/DL (6.4-8.2); eGFR > 90 ML/MIN
[2021-07-02] MEDS: cefTRIAXone 1g/NS 100ml IVPB 100 ML IV SCH (07:15)
[2021-07-02] MEDS: furosemide 20 MG/2 ML vial IV SCH (07:15)
[2021-07-02 07:17] LABS: ANISOCYTOSIS 2+; PLATELET ESTIMATE NORMAL; TOTAL CELLS COUNTED 100
[2021-07-02 07:18] LABS: LARGE PLATELETS FEW; POLYCHROMASIA FEW; TEAR DROP CELLS FEW
[2021-07-02 07:19] LABS: ACANTHOCYTES FEW; ELLIPTOCYTES FEW
[2021-07-02] MEDS: amiodarone 200mg tablet PO SCH (08:00)
[2021-07-02] MEDS: predniSONE 20 mg tablet PO SCH (08:30)
--- NOTE | 2021-07-02 09:01 | NUR ---
Gi lab called patient is to go down around 1400, patient npo since midnight.
[2021-07-02] MEDS: dextrose 5%-water 1,000 ML IV SCH ×2 (09:11→23:29)
--- NOTE | 2021-07-02 09:30 | NUR ---
dextrose 5% with water is compatible with protonix drip checks with clinical pharmacology
[2021-07-02] MEDS: [UNRECOGNIZED DRUG - OTHER] PO SCH ×2 (11:11→20:34)
[2021-07-02] MEDS: lactose-reduced food (Ensure High Protein) 237ml bottle PO SCH (12:30)
[2021-07-02] MEDS ORDERED: MIDAZolam 1 MG/ML 5ML VIAL ONE (12:37)
[2021-07-02] MEDS ORDERED: fentaNYL/PF 50MCG/1 ML 2ML syringe ONE (12:37)
[2021-07-02] MEDS ORDERED: LIDOcaine Viscous 15ml cup ONE (12:38)
--- NOTE | 2021-07-02 13:08 | NUR ---
Patient to GI lab
--- NOTE | 2021-07-02 13:27 | NUR ---
Reassessment: Pt s/p BSS 4/[address] recs to continue regular food consistency and thin liquids as pt swallowing well. Pt has been eating well with mostly 75-100% PO intake on heart healthy diet, however is now on a clear liquid diet d/t melenic stools, guaiac positive per EMR. Despite active diet order pt documented to be NPO at this time, currently in GI lab per engineering documentation specialist. ONS held at this time as they are not appropriate for clear liquid diet, though recommend resuming ONS with diet advancement. Noted pt receiving D5 at 100 mL/hr which provides 408 kcal/day. LBM 4/6. Will continue to follow and make recommendations as appropriate. Recommendations: 1. Advance to regular diet as medically indicated in view of geriatric age and lipid panel WNL; fluid restriction per MD 2. Resume Magdi shake BIDBD and Ensure High Protein WL with diet advancement 3. Continue routine MVI for wound healing 4. Bowel care per rx 5. Scaled wt this admit; subsequent weekly wts Addendum: 07/02/21 at [address] Amended: Links added.
--- NOTE | 2021-07-02 16:22 | NUR ---
PAGER ID: [phone] MESSAGE: [id number], Calvo EGD was normal; no findings. can i dc protonix drip? thanks! oleg [id number]
--- NOTE | 2021-07-02 18:17 | NUR ---
Report given to MILLA Baez
[2021-07-02] MEDS: temazepam 15mg capsule PO SCH (20:33)
[2021-07-03 02:00] VITALS: BP 111/60
[2021-07-03] MEDS: dextrose 5%-water 1,000 ML IV SCH (04:55)
[2021-07-03 06:00] VITALS: BP 121/68
--- NOTE | 2021-07-03 06:22 | NUR ---
Received report from MILLA Baez
[2021-07-03] MEDS: cefTRIAXone 1g/NS 100ml IVPB 100 ML IV SCH (07:58)
[2021-07-03] MEDS: [UNRECOGNIZED DRUG - OTHER] PO SCH (07:59)
[2021-07-03] MEDS: K and/or MAG REPLACEMENT MC SCH (08:00)
[2021-07-03] MEDS: amiodarone 200mg tablet PO SCH (08:00)
[2021-07-03] MEDS: docusate sod 100mg capsule PO SCH (08:00)
[2021-07-03] MEDS: multivitamins, therapeutics tablet PO SCH (08:00)
[2021-07-03] MEDS: levoTHYROXINE 75mcg tablet PO SCH (08:01)
[2021-07-03] MEDS: potassium Cl 20 mEq SR tablet PO SCH (08:01)
[2021-07-03] MEDS: cetirizine 10mg tablet PO SCH (08:02)
[2021-07-03] MEDS: JUVEN Shake w/Arg/Glut/Ca2+Bmb (Juven 19.3gm) pkt 240ml PO SCH (08:03)
[2021-07-03] MEDS ORDERED: CEFD300C3 PO (09:44)
--- NOTE | 2021-07-03 10:16 | NUR ---
Called [facility] to give report on patients hospital stay, patient to be discharged to [facility] at 1300
--- NOTE | 2021-07-03 10:30 | NUR ---
PAGER ID: [phone] MESSAGE: [id number] Calvo, i tried taking him off his oxygen and it dropped to 88, josephine chandler said they need you to order 02 for him? oleg [id number]
--- NOTE | 2021-07-03 10:33 | NUR ---
O2 Sat at rest on room air:__88_% If below 89%: Recovery O2 Sat at rest on _2.5__LPM:_92__%:___% via nasal cannula (mask/nasal cannula, etc..) No further documentation is necessary. If O2 Sat did not drop below 89% on room air,ambulate patient on room air. O2 Sat while ambulating on room air:___% Recovery O2 Sat while ambulating on ___LPM:___% No further documentation is necessary. If patient does not drop below 89% while ambulating, he/she does not qualify for home O2.
[2021-07-03 11:00] VITALS: BP 120/57
[2021-07-03] MEDS: lactose-reduced food (Ensure High Protein) 237ml bottle PO SCH (12:31)
--- NOTE | 2021-07-03 13:50 | NUR ---
Patient is stable for discharge per Dr Elizabeth orders. All discharge instructions reviewed with patient and all questions answered. New prescriptions sent electronically. Patient medications retrieved from pharmacy. PIV discontinued. front desk monitor discontinued. Belongings collected and sent with patient. [facility] is mode of transportation. Wheeled to [place].
== END 2021-07-03 13:50 | disposition home health service (06) | DRG 662 ==
LOC: PCU 3S 13:11 → SUR 3N 06-23 22:30 → PCU 3S 06-25 22:40
PROVIDERS: ADMIT Family Medicine; ATTEND Family Medicine
PROC: BW211ZZ Computerized Tomography (CT Scan) of Abdomen and Pelvis using Low Osmolar Contrast (ICD-10-PCS; 2021-06-20)
PROC: 30233N1 Transfusion of Nonautologous Red Blood Cells into Peripheral Vein, Percutaneous Approach (ICD-10-PCS; 2021-06-23)
PROC: B32T1ZZ Computerized Tomography (CT Scan) of Left Pulmonary Artery using Low Osmolar Contrast (ICD-10-PCS; 2021-06-26)
PROC: B3201ZZ Computerized Tomography (CT Scan) of Thoracic Aorta using Low Osmolar Contrast (ICD-10-PCS; 2021-06-26)
PROC: B32S1ZZ Computerized Tomography (CT Scan) of Right Pulmonary Artery using Low Osmolar Contrast (ICD-10-PCS; 2021-06-26)
PROC: 0TJB8ZZ Inspection of Bladder, Via Natural or Artificial Opening Endoscopic (ICD-10-PCS; 2021-06-30)
PROC: 0T9B00Z Drainage of Bladder with Drainage Device, Open Approach (ICD-10-PCS; principal; 2021-06-30 14:57)
PROC: 0DJ08ZZ Inspection of Upper Intestinal Tract, Via Natural or Artificial Opening Endoscopic (ICD-10-PCS; 2021-07-02)
DX: T83.518A Infection and inflammatory reaction due to other urinary catheter, initial encounter (principal); A41.9 Sepsis, unspecified organism; N17.0 Acute kidney failure with tubular necrosis; J96.01 Acute respiratory failure with hypoxia; I50.31 Acute diastolic (congestive) heart failure; I31.3 Pericardial effusion (noninflammatory); N13.8 Other obstructive and reflux uropathy; I69.354 Hemiplegia and hemiparesis following cerebral infarction affecting left non-dominant side; I96 Gangrene, not elsewhere classified; K92.1 Melena; N48.22 Cellulitis of corpus cavernosum and penis; Z20.822 Contact with and (suspected) exposure to COVID-19; D45 Polycythemia vera; N36.8 Other specified disorders of urethra; I11.0 Hypertensive heart disease with heart failure; E87.6 Hypokalemia; D64.9 Anemia, unspecified; E03.9 Hypothyroidism, unspecified; E78.5 Hyperlipidemia, unspecified; E66.9 Obesity, unspecified; M19.90 Unspecified osteoarthritis, unspecified site; R33.9 Retention of urine, unspecified; G89.29 Other chronic pain; F12.90 Cannabis use, unspecified, uncomplicated; N31.9 Neuromuscular dysfunction of bladder, unspecified; L89.899 Pressure ulcer of other site, unspecified stage; I48.0 Paroxysmal atrial fibrillation; N40.1 Benign prostatic hyperplasia with lower urinary tract symptoms; K22.2 Esophageal obstruction; K44.9 Diaphragmatic hernia without obstruction or gangrene; K59.00 Constipation, unspecified; Y84.6 Urinary catheterization as the cause of abnormal reaction of the patient, or of later complication, without mention of misadventure at the time of the procedure; Z66 Do not resuscitate; Z79.01 Long term (current) use of anticoagulants; Z82.49 Family history of ischemic heart disease and other diseases of the circulatory system; Z85.6 Personal history of leukemia; Z86.16 Personal history of COVID-19; Z86.61 Personal history of infections of the central nervous system; Z87.01 Personal history of pneumonia (recurrent); Z87.440 Personal history of urinary (tract) infections; Z87.891 Personal history of nicotine dependence; Z99.3 Dependence on wheelchair; Z68.30 Body mass index [BMI] 30.0-30.9, adult; Z88.0 Allergy status to penicillin; Z79.899 Other long term (current) drug therapy; Y92.89 Other specified places as the place of occurrence of the external cause
CPT/HCPCS: 36415; 36430; 36600; 43235; 71045; 71275; 74177; 80048; 80053; 80061; 80202; 81001; 82272; 82565; 82803; 82948; 83036; 83605; 83735; 83880; 84100; 84132; 84145; 84443; 85007; 85008; 85018; 85025; 85027; 85610; 85730; 86885; 86900; 86901; 86920; 87040; 87081; 87088; 87635; 92508; 92616; 93005; 93306; 94640; 94760; 97110; 97161; 97530; 99152; A4338; A4620; A5200; A6449; C1769; C9113; G0378; J0696; J1644; J1650; J1940; J2250; J2930; J3010; J3370; J3480; J7030; J7040; J7050; J7070; J7512; P9016; P9045; Q9967

== ENCOUNTER 2021-07-12 02:58 | Emergency (ER) | payer MEDICARE, OTHER, MEDICAID ==
[~2021-07-12] VITALS: Ht 177.8 cm; Wt 100.0 kg
[~2021-07-12 02:58] MED LIST changes: +APIX5TAB3 PO; +ASCO-10 PO; +CEFD300C3 PO; -CEPH-585 PO; +CETI10TA19 PO; +CYAN500T9 PO; +DOCU100C40 PO; -FLO0.4C PO; -LEVO100T PO; +LEVO150T8 PO; -OXYB5TAB16 PO; +TEMA15CA PO
--- NOTE | 2021-07-12 03:24 | NUR ---
UA spec collected from huerta bag. Labeled, labeled urine from cath, name, date, time. Walked to lab. Pt pink, alert no acute/resp distress.
[2021-07-12 03:34] LABS: CLARITY,URINE BLOODY (Clear); COLOR,URINE RED (Yellow); UA COLLECTION TYPE STRAIGHT CATH
[2021-07-12 03:48] LABS: BACTERIA,URINE NONE SEEN /HPF (Neg); MUCUS STRANDS FEW /LPF (Neg); RBC,URINE TNTC /HPF (0-2); SQUAMOUS EPITHELIAL CELL,UR NONE SEEN /LPF (FEW); WBC,URINE 0-4 /HPF (0-4)
[2021-07-12 03:52] LABS: MEAN CORPUSCULAR VOLUME 86.1 FL (78-98); NEUTROPHILS # (AUTO) 9.1 X10'3 (1.8-7.7); WHITE BLOOD COUNT 14.5 X10'3 (4.5-11.0)
[2021-07-12 03:54] LABS: BASOPHILS % (AUTO) 0.3 % (0-1); EOSINOPHILS % (AUTO) 0.2 % (0-6); HEMATOCRIT 28.2 % (42.0-52.0); LYMPHOCYTES # (AUTO) 1.6 X10'3 (1.1-4.8); LYMPHOCYTES % (AUTO) 10.8 % (21-51); MEAN CORPUSCULAR HEMOGLOBIN 27.5 PG (27.0-31.0); MONOCYTES # (AUTO) 3.7 X10'3 (0-0.9); MONOCYTES % (AUTO) 25.5 % (2-12); NEUTROPHILS % (AUTO) 63.2 % (42-75); RED BLOOD COUNT 3.28 X10'6 (4.70-6.10); RED CELL DISTRIBUTION WIDTH 19.8 % (11.5-14.5)
[2021-07-12 04:08] LABS: ALANINE AMINOTRANSFERASE 33 U/L (12-78); ALBUMIN 2.7 G/DL (3.4-5.0); ALBUMIN/GLOBULIN RATIO 0.6 (1.1-1.5); ALKALINE PHOSPHATASE 52 IU/L (46-116); ANION GAP 4 (8-16); ASPARTATE AMINO TRANSFERASE 15 U/L (10-37); BILIRUBIN,TOTAL 0.5 MG/DL (0.1-1.0); BLOOD UREA NITROGEN 15 MG/DL (7-18); CALCIUM 8.9 MG/DL (8.5-10.1); CHLORIDE 105 MMOL/L (99-107); GLUCOSE 114 MG/DL (70-104); POTASSIUM 4.4 MMOL/L (3.5-5.1); SODIUM 138 MMOL/L (135-145); eGFR 72 ML/MIN
--- NOTE | 2021-07-12 05:14 | NUR ---
Pt pink, alert, no acute/resp distress. Pt repositioned to left lateral with blanket roll under right side for positioning comfort. PIV site c/d/i s complication. Bed in lowest position, wheels locked. Rail 2/2 up and locked. Call cahppell in reach.
--- NOTE | 2021-07-12 05:55 | NUR ---
Pt medicated as ordered. Pt alejandro. well. Pt supine, repositions self as needed prn.
--- NOTE | 2021-07-12 05:56 | NUR ---
Pt repositioned to right lateral side. Pt pink, alert, no acute/resp distress. PIV site c/d/i s complication or adverse.
[2021-07-12 06:04] LABS: PLATELET COUNT 50 X10'3 (140-440)
[2021-07-12 06:26] LABS: TOTAL CELLS COUNTED 100
[2021-07-12 06:27] LABS: ANISOCYTOSIS 2+; MICROCYTOSIS 1+; PLATELET ESTIMATE DECREASED; POIKILOCYTOSIS FEW
[2021-07-12 06:48] VITALS: BP 134/75
--- NOTE | 2021-07-12 07:00 | NUR ---
Blood noted in urostomy bag upon discharge; ER provider who discharged patient no longer in department. Night global marketing coordinator confirmed bloody urine appears the same; patient okay to discharge.
== END 2021-07-12 08:38 | disposition home or self-care (01) ==
LOC: ER 02:58
DX: R31.9 Hematuria, unspecified (principal); E78.00 Pure hypercholesterolemia, unspecified; E06.9 Thyroiditis, unspecified; I11.9 Hypertensive heart disease without heart failure
CPT/HCPCS: 36415; 80053; 81001; 84145; 85007; 85025; 85610; 87088; 99284

== ENCOUNTER 2021-07-12 12:00 | Emergency (ER) | payer MEDICARE, OTHER, MEDICAID ==
[~2021-07-12] VITALS: Ht 177.8 cm; Wt 100.0 kg
[2021-07-12 13:34] LABS: EOSINOPHILS % (AUTO) 0.2 % (0-6); HEMOGLOBIN 8.9 g/dl (14.0-17.9); MEAN CORPUSCULAR VOLUME 86.2 FL (78-98)
[2021-07-12] MEDS ORDERED: LIDOcaine 2% 10ml TOPICAL JELLY (Urojet) MM STA (13:34)
[2021-07-12 13:36] LABS: BASOPHILS # (AUTO) 0.1 X10'3 (0-0.2); BASOPHILS % (AUTO) 0.4 % (0-1); HEMATOCRIT 27.8 % (42.0-52.0); LYMPHOCYTES % (AUTO) 6.9 % (21-51); MEAN CORPUSCULAR HEMOGLOBIN 27.5 PG (27.0-31.0); MEAN CORPUSCULAR HGB CONC 31.9 g/dL (33.0-36.5); MONOCYTES # (AUTO) 2.9 X10'3 (0-0.9); MONOCYTES % (AUTO) 20.3 % (2-12); NEUTROPHILS # (AUTO) 10.3 X10'3 (1.8-7.7); NEUTROPHILS % (AUTO) 72.2 % (42-75); RED BLOOD COUNT 3.23 X10'6 (4.70-6.10); RED CELL DISTRIBUTION WIDTH 19.9 % (11.5-14.5); WHITE BLOOD COUNT 14.2 X10'3 (4.5-11.0)
--- NOTE | 2021-07-12 13:36 | NUR ---
Dr. Mixon at bedside.
[2021-07-12 13:38] LABS: PLATELET COUNT 49 X10'3 (140-440)
--- NOTE | 2021-07-12 14:37 | NUR ---
Report given to Osmani at [facility] to include discontinuation of anticoagulation as well as follow-up with Dr. Duval for urology.
[2021-07-12 14:57] VITALS: BP 137/73
== END 2021-07-12 15:30 | disposition home or self-care (01) ==
LOC: ER 12:01
DX: T83.83XA Hemorrhage due to genitourinary prosthetic devices, implants and grafts, initial encounter (principal); I11.9 Hypertensive heart disease without heart failure; E06.9 Thyroiditis, unspecified; E78.00 Pure hypercholesterolemia, unspecified; Z88.0 Allergy status to penicillin; Z79.899 Other long term (current) drug therapy
CPT/HCPCS: 85025; 99283

== ENCOUNTER 2021-07-18 05:23 | Emergency (ER) | payer MEDICARE, OTHER, MEDICAID ==
[~2021-07-18] VITALS: Ht 177.8 cm; Wt 100.0 kg
--- NOTE | 2021-07-18 07:49 | NUR ---
Suprapubic catheter irrigated wtih sterile water; clear, pink-tinged fluid draining. dressing around insertion site changed; bedding changed; brief placed.
--- NOTE | 2021-07-18 09:30 | NUR ---
Patient will be picked up by Marjorie Spann at noon today.
--- NOTE | 2021-07-18 09:31 | NUR ---
Called Marjorie Spann and gave report to Puja.
[2021-07-18 10:00] VITALS: BP 142/69
== END 2021-07-18 12:00 | disposition home or self-care (01) ==
LOC: ER 05:23
DX: R33.9 Retention of urine, unspecified (principal); E78.00 Pure hypercholesterolemia, unspecified; I10 Essential (primary) hypertension; E03.9 Hypothyroidism, unspecified; Z86.73 Personal history of transient ischemic attack (TIA), and cerebral infarction without residual deficits; Z87.440 Personal history of urinary (tract) infections; Z90.89 Acquired absence of other organs; Z98.890 Other specified postprocedural states; Z72.89 Other problems related to lifestyle; Z88.0 Allergy status to penicillin; Z79.2 Long term (current) use of antibiotics; Z79.899 Other long term (current) drug therapy
CPT/HCPCS: 99285

== ENCOUNTER 2021-08-13 07:51 | Outpatient (CLI) | payer MEDICARE, OTHER, MEDICAID ==
[~2021-08-13] VITALS: Ht 177.8 cm; Wt 100.0 kg
[~2021-08-13 07:51] MED LIST changes: -CEFD300C3 PO
[2021-08-13] MEDS ORDERED: regadenoson 0.4mg/5ml syringe IV ONE (08:40)
[2021-08-13 09:40] VITALS: BP 148/67
[2021-08-13 09:46] VITALS: BP 136/68
[2021-08-13 09:47] VITALS: BP 111/59
[2021-08-13 09:48] VITALS: BP 135/66
[2021-08-13 09:49] VITALS: BP 136/66
[2021-08-13 09:50] VITALS: BP 134/65
== END 2021-08-13 23:59 | disposition home or self-care (01) ==
LOC: RAD 07:51
PROVIDERS: ATTEND Internal Medicine Cardiovascular Disease
DX: I48.91 Unspecified atrial fibrillation (principal)
CPT/HCPCS: 78452; 93017; A9500; J2785

== ENCOUNTER 2021-12-18 03:44 | Emergency (ER) | payer MEDICARE, OTHER, MEDICAID ==
[~2021-12-18] VITALS: Ht 172.7 cm; Wt 100.0 kg
[~2021-12-18 03:44] MED LIST changes: +LINE600T11 PO; +OXYB-58 PO; +POTA-207 PO
--- NOTE | 2021-12-18 05:13 | NUR ---
ATTEMPTED CALLING HEATHER DYKESS SEVERAL TIMES. NO ANSWER.
[2021-12-18 07:41] VITALS: BP 105/64
== END 2021-12-18 13:08 | disposition home or self-care (01) ==
LOC: ER 03:45
DX: T85.9XXA Unspecified complication of internal prosthetic device, implant and graft, initial encounter (principal); I11.9 Hypertensive heart disease without heart failure; E78.00 Pure hypercholesterolemia, unspecified; Z88.0 Allergy status to penicillin; Z79.1 Long term (current) use of non-steroidal anti-inflammatories (NSAID); Z79.2 Long term (current) use of antibiotics
CPT/HCPCS: 99283

== ENCOUNTER 2021-12-18 20:51 | Emergency (ER) | payer MEDICARE, OTHER, MEDICAID ==
[~2021-12-18] VITALS: Ht 177.8 cm; Wt 103.0 kg
[2021-12-19] MEDS ORDERED: ondansetron/PF 4mg/2ml inj IV ONE ×2 (01:05→19:00)
[2021-12-19 02:03] LABS: LYMPHOCYTES # (AUTO) 0.4 X10'3 (1.1-4.8); LYMPHOCYTES % (AUTO) 0.3 % (21-51)
[2021-12-19 02:17] LABS: ALANINE AMINOTRANSFERASE 16 U/L (12-78); ALBUMIN/GLOBULIN RATIO 0.5 (1.1-1.5); ALKALINE PHOSPHATASE 48 IU/L (46-116); ANION GAP 17 (8-16); ASPARTATE AMINO TRANSFERASE 12 U/L (10-37); BILIRUBIN,TOTAL 0.3 MG/DL (0.1-1.0); BLOOD UREA NITROGEN 41 MG/DL (7-18); BUN/CREATININE RATIO 24.6 (5.4-32.0); CALCIUM 8.5 MG/DL (8.5-10.1); CHLORIDE 104 MMOL/L (99-107); CREATININE 1.67 MG/DL (0.60-1.10); GLUCOSE 106 MG/DL (70-104); LIPASE < 50 U/L (73-393); POTASSIUM 3.6 MMOL/L (3.5-5.1); SODIUM 137 MMOL/L (135-145); TOTAL CARBON DIOXIDE 15.8 MMOL/L (24-32); TOTAL PROTEIN 5.7 G/DL (6.4-8.2); eGFR 39 ML/MIN
[2021-12-19] MEDS ORDERED: normal saline 1000ml 1,000 ML IV ONE ×2 (02:35→05:10)
[2021-12-19] MEDS ORDERED: CefTRIAXone/D5W-Rocephin 1gm 50 ML IV ONE (02:40)
[2021-12-19] MEDS ORDERED: azithromycin/NS 500mg/250ml 250 ML IV ONE (02:40)
[2021-12-19] MEDS ORDERED: vancomycin/NS 1 GM ADD-VANTAGE 250 ML IV ONE (02:40)
[2021-12-19 02:42] LABS: HEMATOCRIT 26.2 % (42.0-52.0); HEMOGLOBIN 8.2 g/dl (14.0-17.9); MEAN CORPUSCULAR HEMOGLOBIN 25.8 PG (27.0-31.0); MEAN CORPUSCULAR VOLUME 82.9 FL (78-98); RED BLOOD COUNT 3.16 X10'6 (4.70-6.10); WHITE BLOOD COUNT 126.4 X10'3 (4.5-11.0)
[2021-12-19 02:43] LABS: BASOPHILS # (AUTO) 0.8 X10'3 (0-0.2); BASOPHILS % (AUTO) 0.6 % (0-1); EOSINOPHILS # (AUTO) 0.1 X10'3 (0-0.9); EOSINOPHILS % (AUTO) 0.1 % (0-6); MEAN CORPUSCULAR HGB CONC 31.2 g/dL (33.0-36.5); MEAN PLATELET VOLUME 11.5 FL (7.4-10.4); MONOCYTES # (AUTO) 18.8 X10'3 (0-0.9); MONOCYTES % (AUTO) 14.9 % (2-12); NEUTROPHILS # (AUTO) 106.3 X10'3 (1.8-7.7); NEUTROPHILS % (AUTO) 84.1 % (42-75); PLATELET COUNT 124 X10'3 (140-440); RED CELL DISTRIBUTION WIDTH 21.4 % (11.5-14.5)
[2021-12-19 04:38] LABS: APTT 35 SECONDS (22-32); D-DIMER 2.13 MG/L FEU (0-0.50)
[2021-12-19 04:58] LABS: PLATELET COUNT 124 X10'3 (140-440)
[2021-12-19 05:04] LABS: CLARITY,URINE CLOUDY (Clear); GLUCOSE, URINE NEGATIVE (Neg); KETONES,URINE TRACE mg/dl (Neg); LEUKOCYTE ESTERASE ,URINE SMALL (Neg); NITRITES, URINE NEGATIVE (Neg); OCCULT BLOOD,URINE LARGE (Neg); PROTEIN,URINE TRACE mg/dl (Neg); UROBILINOGEN,URINE 0.2 E.U/dL (0.2-1.0)
[2021-12-19 05:07] LABS: COLOR,URINE DARK YELLOW (Yellow); UA COLLECTION TYPE NON-SPECIFIED
[2021-12-19 05:19] LABS: BACTERIA,URINE FEW /HPF (Neg); MUCUS STRANDS MODERATE /LPF (Neg); RBC,URINE TNTC /HPF (0-2); SQUAMOUS EPITHELIAL CELL,UR FEW /LPF (FEW)
[2021-12-19 05:20] LABS: AMORPHOUS URATES 1+
[2021-12-19 05:36] LABS: TOTAL CELLS COUNTED 100
[2021-12-19 05:37] LABS: PLATELET ESTIMATE DECREASED
[2021-12-19 05:38] LABS: ANISOCYTOSIS 3+; LARGE PLATELETS FEW; POLYCHROMASIA 1+
[2021-12-19 05:40] LABS: BURR CELLS 1+; GIANT PLATELET FEW; POIKILOCYTOSIS FEW
[2021-12-19 05:58] LABS: SMUDGE CELLS 1+
--- NOTE | 2021-12-19 06:24 | NUR ---
0130 lab caled with critical labs: WBC: 126.4 Neutrophils: 106.3 Trop: 86 MD notified, new orders recived. 0330 lab called with critical lab: Lactic: 5.3 MD notified, new orders recived.
--- NOTE | 2021-12-19 13:28 | NUR ---
Darrel (brother) updated on pt condition. [phone]
--- NOTE | 2021-12-19 16:12 | NUR ---
TC FROM HOME HEALTH AGENCY THAT CARES FOR THIS PATIENT. CONDITION REPORT AND TRANSFER STATUS RELAYED TO HOME HEALTH NURSE.
--- NOTE | 2021-12-19 16:59 | NUR ---
Spoke with transfer center at [facility]. Pt accepted. To go to bed 1107 after 1999.
[2021-12-19 22:15] VITALS: BP 108/75
--- NOTE | 2021-12-19 22:29 | NUR ---
RN to RN report given to [facility], all questons answered. Pt vomiting bowel contents, per MD insert NG tube. 400ml out. [facility] transport team arrived to get pt, report given, all questions answered. Brother Too Jamesonppard updated on department time. Pt wheeled out around 2209.
== END 2021-12-19 22:10 | disposition short-term general hospital (02) ==
LOC: ER 20:52
DX: D75.81 Myelofibrosis (principal); Z20.822 Contact with and (suspected) exposure to COVID-19; A41.9 Sepsis, unspecified organism; N17.9 Acute kidney failure, unspecified; E78.00 Pure hypercholesterolemia, unspecified; J18.9 Pneumonia, unspecified organism; I10 Essential (primary) hypertension; E03.9 Hypothyroidism, unspecified; Z90.49 Acquired absence of other specified parts of digestive tract; Z88.0 Allergy status to penicillin; Z79.899 Other long term (current) drug therapy
CPT/HCPCS: 36415; 71045; 74018; 74176; 80053; 81001; 83605; 83690; 84145; 84484; 85007; 85025; 85379; 85384; 85610; 85730; 87040; 87088; 87635; 96361; 96365; 96366; 96368; 96375; 99285; A6222; A6258; C1758; C9803; J0456; J0696; J3370; J7030; A4314; A4615; A4620

== ENCOUNTER 2022-02-18 10:08 | Outpatient (CLI) | payer MEDICARE, OTHER, MEDICAID | END 2022-02-18 23:59 | disposition home or self-care (01) | LOC: RT 10:08 | PROVIDERS: ATTEND Internal Medicine Cardiovascular Disease | DX: I08.3 Combined rheumatic disorders of mitral, aortic and tricuspid valves (principal); I48.91 Unspecified atrial fibrillation; R94.2 Abnormal results of pulmonary function studies; J98.4 Other disorders of lung; Z79.899 Other long term (current) drug therapy | CPT/HCPCS: 85018; 93306; 94010; 94727; 94729 ==

== ENCOUNTER 2022-02-25 00:57 | Emergency (ER) | payer MEDICARE, OTHER, MEDICAID ==
[~2022-02-25] VITALS: Ht 170.2 cm; Wt 85.0 kg
[2022-02-25 01:05] VITALS: BP 109/60
== END 2022-02-25 02:57 | disposition home or self-care (01) ==
LOC: ER 00:58
DX: T83.098A Other mechanical complication of other urinary catheter, initial encounter (principal); R33.9 Retention of urine, unspecified; I11.9 Hypertensive heart disease without heart failure; E78.00 Pure hypercholesterolemia, unspecified; E03.9 Hypothyroidism, unspecified; Z88.0 Allergy status to penicillin; Z79.899 Other long term (current) drug therapy; Z79.1 Long term (current) use of non-steroidal anti-inflammatories (NSAID)
CPT/HCPCS: 51702; 99284; A5200

== ENCOUNTER 2022-03-31 21:08 | Emergency (ER) | payer MEDICARE, OTHER, MEDICAID ==
[~2022-03-31] VITALS: Ht 172.7 cm; Wt 70.0 kg
--- NOTE | 2022-03-31 22:55 | NUR ---
SPOKE WITH PTS BROTHER, TORREY, REQUESTING AN UPDATE.
[2022-04-01 01:18] LABS: CLARITY,URINE SLIGHTLY CLOUDY (Clear); COLOR,URINE YELLOW (Yellow); GLUCOSE, URINE NEGATIVE (Neg); KETONES,URINE NEGATIVE (Neg); LEUKOCYTE ESTERASE ,URINE MODERATE (Neg); NITRITES, URINE NEGATIVE (Neg); OCCULT BLOOD,URINE MODERATE (Neg); PH,URINE 5.5 (4.8-8.0); PROTEIN,URINE TRACE mg/dl (Neg); UROBILINOGEN,URINE 0.2 E.U/dL (0.2-1.0)
[2022-04-01 01:25] LABS: UA COLLECTION TYPE STRAIGHT CATH
[2022-04-01 01:28] LABS: BACTERIA,URINE 2+ /HPF (Neg); SQUAMOUS EPITHELIAL CELL,UR FEW /LPF (FEW); TRANSITIONAL EPI CELLS,URINE FEW /HPF; WBC CLUMPS,URINE FEW /HPF (NEGATIVE)
[2022-04-01 01:40] LABS: BASOPHILS # (AUTO) 0.1 X10'3 (0-0.2); BASOPHILS % (AUTO) 0.5 % (0-1); EOSINOPHILS % (AUTO) 0.1 % (0-6); HEMATOCRIT 23.4 % (42.0-52.0); HEMOGLOBIN 7.3 g/dl (14.0-17.9); LYMPHOCYTES # (AUTO) 1.5 X10'3 (1.1-4.8); LYMPHOCYTES % (AUTO) 6.3 % (21-51); MEAN CORPUSCULAR HEMOGLOBIN 26.4 PG (27.0-31.0); MEAN CORPUSCULAR HGB CONC 31.3 g/dL (33.0-36.5); MEAN CORPUSCULAR VOLUME 84.3 FL (78-98); MEAN PLATELET VOLUME 11.1 FL (7.4-10.4); NEUTROPHILS # (AUTO) 15.6 X10'3 (1.8-7.7); NEUTROPHILS % (AUTO) 67.1 % (42-75); PLATELET COUNT 96 X10'3 (140-440); RED BLOOD COUNT 2.78 X10'6 (4.70-6.10); RED CELL DISTRIBUTION WIDTH 23.2 % (11.5-14.5); WHITE BLOOD COUNT 23.2 X10'3 (4.5-11.0)
[2022-04-01 01:46] LABS: APTT 27 SECONDS (22-32)
[2022-04-01 01:50] LABS: ALANINE AMINOTRANSFERASE 21 U/L (12-78); ALBUMIN 2.8 G/DL (3.4-5.0); ALBUMIN/GLOBULIN RATIO 0.6 (1.1-1.5); ALKALINE PHOSPHATASE 51 IU/L (46-116); ANION GAP 7 (8-16); ASPARTATE AMINO TRANSFERASE 18 U/L (10-37); BILIRUBIN,TOTAL 0.2 MG/DL (0.1-1.0); BLOOD UREA NITROGEN 14 MG/DL (7-18); BUN/CREATININE RATIO 12.8 (5.4-32.0); CALCIUM 9.3 MG/DL (8.5-10.1); CHLORIDE 105 MMOL/L (99-107); CREATININE 1.09 MG/DL (0.60-1.10); GLUCOSE 125 MG/DL (70-104); POTASSIUM 3.8 MMOL/L (3.5-5.1); SODIUM 138 MMOL/L (135-145); TOTAL CARBON DIOXIDE 26.3 MMOL/L (24-32); TOTAL PROTEIN 7.4 G/DL (6.4-8.2); eGFR 65 ML/MIN
[2022-04-01 02:59] LABS: NUCLEATED RED BLOOD CELLS 1 /100WBC (0-0); TOTAL CELLS COUNTED 100
[2022-04-01 03:00] LABS: ANISOCYTOSIS 3+; LARGE PLATELETS FEW; PLATELET ESTIMATE DECREASED; POLYCHROMASIA 1+
[2022-04-01 03:01] LABS: ELLIPTOCYTES FEW; SCHISTOCYTES FEW
[2022-04-01] MEDS ORDERED: CefTRIAXone 2gm/D5W 50ml BAG 50 ML IV ONE (10:40)
[2022-04-01] MEDS ORDERED: CEPH-585 PO (13:06)
[2022-04-01 14:50] VITALS: BP 141/88
== END 2022-04-01 14:53 | disposition home or self-care (01) ==
LOC: ER 21:10
DX: N39.0 Urinary tract infection, site not specified (principal); R31.9 Hematuria, unspecified; D64.9 Anemia, unspecified; E78.00 Pure hypercholesterolemia, unspecified; I10 Essential (primary) hypertension; E03.9 Hypothyroidism, unspecified; Z88.0 Allergy status to penicillin; Z79.899 Other long term (current) drug therapy; Z79.1 Long term (current) use of non-steroidal anti-inflammatories (NSAID); Z79.2 Long term (current) use of antibiotics
CPT/HCPCS: 36415; 72192; 74176; 80053; 81001; 84145; 85007; 85025; 85610; 85730; 86885; 86900; 86901; 87088; 96365; 99285; J0696; 87186

== ENCOUNTER 2022-06-12 05:32 | Emergency (ER) | payer MEDICARE, OTHER, MEDICAID ==
[~2022-06-12] VITALS: Ht 175.3 cm; Wt 75.0 kg
[~2022-06-12 05:32] MED LIST changes: +CEPH-585 PO
[2022-06-12] MEDS ORDERED: acetaminophen 325mg tablet PO ONE (06:50)
[2022-06-12 07:36] LABS: CLARITY,URINE CLOUDY (Clear); COLOR,URINE AMBER (Yellow); GLUCOSE, URINE NEGATIVE (Neg); KETONES,URINE TRACE mg/dl (Neg); LEUKOCYTE ESTERASE ,URINE TRACE (Neg); NITRITES, URINE POSITIVE (Neg); OCCULT BLOOD,URINE LARGE (Neg); PH,URINE 5.5 (4.8-8.0); PROTEIN,URINE 100 mg/dl (Neg)
[2022-06-12 07:40] LABS: UA COLLECTION TYPE FOLEY CATH
[2022-06-12 07:41] LABS: BACTERIA,URINE FEW /HPF (Neg); RBC,URINE TNTC /HPF (0-2); SQUAMOUS EPITHELIAL CELL,UR NONE SEEN /LPF (FEW)
[2022-06-12 07:42] LABS: HYALINE CASTS 0-3 /LPF (NEGATIVE); MUCUS STRANDS FEW /LPF (Neg); TRANSITIONAL EPI CELLS,URINE FEW /HPF
[2022-06-12 08:28] LABS: EOSINOPHILS % (AUTO) 0 % (0-6); HEMATOCRIT 32.4 % (42.0-52.0); HEMOGLOBIN 10.3 g/dl (14.0-17.9); MEAN CORPUSCULAR HEMOGLOBIN 26.3 PG (27.0-31.0); MEAN CORPUSCULAR HGB CONC 31.7 g/dL (33.0-36.5); RED BLOOD COUNT 3.91 X10'6 (4.70-6.10)
[2022-06-12 08:29] LABS: BASOPHILS # (AUTO) 0.1 X10'3 (0-0.2); BASOPHILS % (AUTO) 0.5 % (0-1); LYMPHOCYTES % (AUTO) 3.2 % (21-51); MEAN CORPUSCULAR VOLUME 82.8 FL (78-98); MEAN PLATELET VOLUME 10.1 FL (7.4-10.4); MONOCYTES # (AUTO) 13.4 X10'3 (0-0.9); MONOCYTES % (AUTO) 42.4 % (2-12); NEUTROPHILS % (AUTO) 53.9 % (42-75); RED CELL DISTRIBUTION WIDTH 23.1 % (11.5-14.5)
[2022-06-12 08:46] LABS: ALANINE AMINOTRANSFERASE 23 U/L (12-78); ALBUMIN 2.6 G/DL (3.4-5.0); ALBUMIN/GLOBULIN RATIO 0.5 (1.1-1.5); ALKALINE PHOSPHATASE 53 IU/L (46-116); ANION GAP 10 (8-16); ASPARTATE AMINO TRANSFERASE 25 U/L (10-37); BILIRUBIN,TOTAL 0.6 MG/DL (0.1-1.0); BLOOD UREA NITROGEN 21 MG/DL (7-18); CALCIUM 9.6 MG/DL (8.5-10.1); CHLORIDE 107 MMOL/L (99-107); CREATININE 1.31 MG/DL (0.60-1.10); GLUCOSE 109 MG/DL (70-104); LIPASE < 50 U/L (73-393); POTASSIUM 3.9 MMOL/L (3.5-5.1); SODIUM 141 MMOL/L (135-145); TOTAL CARBON DIOXIDE 24.5 MMOL/L (24-32); TOTAL PROTEIN 7.5 G/DL (6.4-8.2); WHITE BLOOD COUNT 31.6 X10'3 (4.5-11.0); eGFR 52 ML/MIN
[2022-06-12 08:47] LABS: PLATELET COUNT 32 X10'3 (140-440)
[2022-06-12 08:50] LABS: TOTAL CELLS COUNTED 100
[2022-06-12] MEDS ORDERED: iohexol 300mg/ml 100ml inj. ONE (08:52)
[2022-06-12 08:54] LABS: ANISOCYTOSIS 3+; BURR CELLS FEW; ELLIPTOCYTES FEW; LARGE PLATELETS FEW; PLATELET ESTIMATE DECREASED; POLYCHROMASIA 1+
--- NOTE | 2022-06-12 09:23 | NUR ---
pt back from ct
[2022-06-12] MEDS ORDERED: CEFD300C3 PO ×3 (10:53→11:29)
[2022-06-12] MEDS ORDERED: POLY17PO10 PO ×3 (10:56→11:29)
--- NOTE | 2022-06-12 11:22 | NUR ---
[facility]ATHER CROOK CONTRACTED TO ADVISE PT GOING BACK TO FACILITY. Barbara, nurse, informed that they will come get pt. [employer] asking that medications be sent to to [facility] longterm pharmacy. Dr. Perez informed and changing E script.
[2022-06-12 11:31] VITALS: BP 120/61
== END 2022-06-12 12:34 | disposition home or self-care (01) ==
LOC: ER 05:33
DX: N39.0 Urinary tract infection, site not specified (principal); D72.829 Elevated white blood cell count, unspecified; D69.6 Thrombocytopenia, unspecified; R10.32 Left lower quadrant pain; E78.00 Pure hypercholesterolemia, unspecified; I10 Essential (primary) hypertension; E03.9 Hypothyroidism, unspecified; Z88.0 Allergy status to penicillin
CPT/HCPCS: 36415; 74177; 80053; 81001; 83690; 85007; 85025; 87088; 99285; J3490; Q9967; 87077; 87186; A4338; A4340

== ENCOUNTER 2023-01-03 19:46 | Emergency (ER) | payer MEDICARE, OTHER, MEDICAID ==
[~2023-01-03] VITALS: Ht 175.3 cm; Wt 79.5 kg
[~2023-01-03 19:46] MED LIST changes: +AMI200T PO; -AMIO200T61 PO; +CEFD300C3 PO; +POLY17PO10 PO
[2023-01-03 20:46] LABS: HEMATOCRIT 32.5 % (42.0-52.0); HEMOGLOBIN 10.1 g/dl (14.0-17.9); MEAN CORPUSCULAR HEMOGLOBIN 26.5 PG (27.0-31.0); MEAN CORPUSCULAR HGB CONC 31.2 g/dL (33.0-36.5); MEAN CORPUSCULAR VOLUME 84.8 FL (78-98); MEAN PLATELET VOLUME 11.2 FL (7.4-10.4); PLATELET COUNT 163 X10'3 (140-440); RED BLOOD COUNT 3.83 X10'6 (4.70-6.10); RED CELL DISTRIBUTION WIDTH 20.5 % (11.5-14.5)
[2023-01-03 20:51] LABS: WHITE BLOOD COUNT 51.2 X10'3 (4.5-11.0)
[2023-01-03 21:05] LABS: ALANINE AMINOTRANSFERASE 35 U/L (12-78); ALBUMIN 2.6 G/DL (3.4-5.0); ALBUMIN/GLOBULIN RATIO 0.6 (1.1-1.5); ALKALINE PHOSPHATASE 56 IU/L (46-116); ANION GAP 6 (8-16); ASPARTATE AMINO TRANSFERASE 30 U/L (10-37); BILIRUBIN,TOTAL 0.5 MG/DL (0.1-1.0); BLOOD UREA NITROGEN 20 MG/DL (7-18); BUN/CREATININE RATIO 13.3 (10.0-20.0); CHLORIDE 103 MMOL/L (99-107); GLUCOSE 107 MG/DL (70-104); POTASSIUM 3.6 MMOL/L (3.5-5.1); SODIUM 133 MMOL/L (135-145); TOTAL CARBON DIOXIDE 24.1 MMOL/L (24-32); TOTAL PROTEIN 7.2 G/DL (6.4-8.2); eCRCL 37 ML/MIN; eGFR 45 ML/MIN
[2023-01-03 21:13] LABS: BILIRUBIN,URINE NEGATIVE (Neg); CLARITY,URINE TURBID (Clear); COLOR,URINE YELLOW (Yellow); GLUCOSE, URINE NEGATIVE (Neg); KETONES,URINE NEGATIVE (Neg); LEUKOCYTE ESTERASE ,URINE LARGE (Neg); NITRITES, URINE POSITIVE (Neg); OCCULT BLOOD,URINE LARGE (Neg); PROTEIN,URINE 100 mg/dl (Neg); UROBILINOGEN,URINE 0.2 E.U/dL (0.2-1.0)
[2023-01-03 21:34] LABS: UA COLLECTION TYPE FOLEY CATH
[2023-01-03 21:36] LABS: SQUAMOUS EPITHELIAL CELL,UR NONE SEEN /LPF (FEW)
[2023-01-03 21:37] LABS: FINE GRANULAR CAST 0-3 /LPF (NEGATIVE); WBC,URINE TNTC /HPF (0-4)
[2023-01-03 21:38] LABS: BACTERIA,URINE 4+ /HPF (Neg)
[2023-01-03 21:46] LABS: TOTAL CELLS COUNTED 100
[2023-01-03 21:47] LABS: ANISOCYTOSIS 3+; PLATELET ESTIMATE NORMAL
[2023-01-03 21:57] LABS: HYPOCHROMASIA 1+; POIKILOCYTOSIS FEW
[2023-01-03 21:58] LABS: SCHISTOCYTES FEW
[2023-01-03 21:59] LABS: LARGE PLATELETS FEW
[2023-01-03] MEDS ORDERED: sulfamethoxazole/trimethoprim DS (800/160mg) tablet PO SCH (22:05)
[2023-01-03] MEDS ORDERED: SULF1TAB45 PO (22:06)
--- NOTE | 2023-01-03 22:35 | NUR ---
Made contact with Marjorie Spann regarding patient transport home. Person answering the phone stated she would contact her supervisor [employer] about transportation. Patient is wheelchair bound and unable to bear weight to transfer.
[2023-01-03 22:55] VITALS: BP 138/72; PULSE 64; RESP 16; TEMP 98.9; O2SAT 95
--- NOTE | 2023-01-03 23:48 | NUR ---
ASSISTED PATIENT WITH REPOSITIONING, REPORTS RELIEF, DENIES NEEDS. CALL LIGHT WITHIN REACH.
--- NOTE | 2023-01-04 00:38 | NUR ---
STAFF WORKING ON TRANSPORTATION HOME, UNKNOWN ARRIVAL OF TRANSPORT AT THIS TIME. PATIENT UPDATED, VERBALIZED UNDERSTANDING. DENIES NEEDS, CALL LIGHT WITHIN REACH.
== END 2023-01-04 01:28 ==
LOC: ER 19:47
DX: Z88.0 Allergy status to penicillin (principal); Z79.2 Long term (current) use of antibiotics; Z79.899 Other long term (current) drug therapy
CPT/HCPCS: 36415; 71045; 80053; 81001; 83605; 84145; 85007; 85025; 87040; 87077; 87088; 87186; 93005; 99285

== ENCOUNTER → 2023-02-13 | Emergency (ER) | payer MEDICARE, OTHER, MEDICAID ==
[~2023-02-13] VITALS: Ht 177.8 cm; Wt 75.0 kg
[~2023-02-13] MED LIST changes: +CefTRIAXone/D5W-Rocephin 1gm 50 ML IV ONE; +DOXY-457 PO; +morphine 2 MG/ML inj. syringe IV STA; +normal saline 1000ml 1,000 ML IV ONE; +ondansetron/PF 4mg/2ml inj IV ONE
[2023-02-13 12:06] LABS: BASOPHILS # (AUTO) 0.1 X10'3 (0-0.2); EOSINOPHILS % (AUTO) 0 % (0-6); HEMOGLOBIN 9.7 g/dl (14.0-17.9); MEAN PLATELET VOLUME 9.8 FL (7.4-10.4); NEUTROPHILS # (AUTO) 16.7 X10'3 (1.8-7.7); RED CELL DISTRIBUTION WIDTH 24.9 % (11.5-14.5)
[2023-02-13 12:07] LABS: BASOPHILS % (AUTO) 0.1 % (0-1); HEMATOCRIT 30.9 % (42.0-52.0); LYMPHOCYTES % (AUTO) 2.8 % (21-51); MEAN CORPUSCULAR HEMOGLOBIN 26.7 PG (27.0-31.0); MEAN CORPUSCULAR HGB CONC 31.3 g/dL (33.0-36.5); MEAN CORPUSCULAR VOLUME 85.2 FL (78-98); MONOCYTES # (AUTO) 18.4 X10'3 (0-0.9); MONOCYTES % (AUTO) 50.8 % (2-12); NEUTROPHILS % (AUTO) 46.3 % (42-75); RED BLOOD COUNT 3.63 X10'6 (4.70-6.10)
[2023-02-13 12:21] LABS: ALANINE AMINOTRANSFERASE 17 U/L (12-78); ALBUMIN 2.6 G/DL (3.4-5.0); ALBUMIN/GLOBULIN RATIO 0.6 (1.1-1.5); ALKALINE PHOSPHATASE 44 IU/L (46-116); ANION GAP 9 (8-16); ASPARTATE AMINO TRANSFERASE 21 U/L (10-37); BILIRUBIN,TOTAL 0.7 MG/DL (0.1-1.0); BLOOD UREA NITROGEN 24 MG/DL (7-18); BUN/CREATININE RATIO 16.9 (10.0-20.0); CALCIUM 9.2 MG/DL (8.5-10.1); CHLORIDE 107 MMOL/L (99-107); CREATININE 1.42 MG/DL (0.60-1.10); GLUCOSE 112 MG/DL (70-104); POTASSIUM 4.1 MMOL/L (3.5-5.1); SODIUM 140 MMOL/L (135-145); TOTAL CARBON DIOXIDE 24.1 MMOL/L (24-32); TOTAL PROTEIN 6.8 G/DL (6.4-8.2); eCRCL 40 ML/MIN; eGFR 47 ML/MIN
[2023-02-13 12:31] LABS: MAGNESIUM 2.1 MG/DL (1.5-2.4); PRO BRAIN NATRIURETIC PEPTIDE 3124 PG/ML (0-450)
[2023-02-13 12:35] LABS: PLATELET COUNT 47 X10'3 (140-440); WHITE BLOOD COUNT 36.2 X10'3 (4.5-11.0)
[2023-02-13 12:38] LABS: PLATELET ESTIMATE DECREASED; TOTAL CELLS COUNTED 100
[2023-02-13 12:39] LABS: ANISOCYTOSIS 3+; MICROCYTOSIS 1+; POIKILOCYTOSIS FEW
[2023-02-13 12:55] VITALS: TEMP 97.6
[2023-02-13 13:08] LABS: BILIRUBIN,URINE NEGATIVE (Neg); CLARITY,URINE CLOUDY (Clear); COLOR,URINE YELLOW (Yellow); GLUCOSE, URINE NEGATIVE (Neg); KETONES,URINE NEGATIVE (Neg); LEUKOCYTE ESTERASE ,URINE SMALL (Neg); NITRITES, URINE NEGATIVE (Neg); OCCULT BLOOD,URINE MODERATE (Neg); PH,URINE 8.5 (4.8-8.0); PROTEIN,URINE 100 mg/dl (Neg); UROBILINOGEN,URINE 0.2 E.U/dL (0.2-1.0)
[2023-02-13 13:12] LABS: UA COLLECTION TYPE FOLEY CATH
[2023-02-13 13:13] LABS: BACTERIA,URINE 3+ /HPF (Neg)
[2023-02-13 13:14] LABS: AMORPHOUS PHOSPHATES 1+; MUCUS STRANDS FEW /LPF (Neg); SQUAMOUS EPITHELIAL CELL,UR NONE SEEN /LPF (FEW)
--- NOTE | 2023-02-13 14:12 | NUR ---
I have reviewed and agree with all interventions, assessments performed and documented by HANDTOOLS REPAIRER
[2023-02-13 16:22] VITALS: BP 152/68; PULSE 65; RESP 16; O2SAT 93
== END | disposition home or self-care (01) ==
LOC: ER 10:44
DX: N39.0 Urinary tract infection, site not specified (principal); M25.512 Pain in left shoulder; E78.00 Pure hypercholesterolemia, unspecified; I10 Essential (primary) hypertension; E03.9 Hypothyroidism, unspecified; Z88.0 Allergy status to penicillin; Z79.899 Other long term (current) drug therapy; Z79.2 Long term (current) use of antibiotics
CPT/HCPCS: 36415; 71045; 72170; 73030; 73200; 80053; 81001; 83735; 83880; 84484; 85007; 85025; 87077; 87088; 87186; 93005; 96365; 96366; 96375; 96376; 99285; J0696; J2270; J2405; J7030

== ENCOUNTER 2023-06-27 14:03 | Emergency (ER) | payer MEDICARE, OTHER, MEDICAID ==
[~2023-06-27] VITALS: Ht 177.8 cm; Wt 72.0 kg
[~2023-06-27 14:03] MED LIST changes: -APIX5TAB3 PO; +BENZ200C59 PO; -CEFD300C3 PO; -CEPH-585 PO; -CefTRIAXone/D5W-Rocephin 1gm 50 ML IV ONE; -DOXY-457 PO; +LEVO125T PO; -LEVO150T8 PO; -LINE600T11 PO; +PANT40TA54 PO; -POLY17PO10 PO; -POTA-207 PO; -morphine 2 MG/ML inj. syringe IV STA; -normal saline 1000ml 1,000 ML IV ONE; -ondansetron/PF 4mg/2ml inj IV ONE
[2023-06-27 14:24] VITALS: PULSE 58; TEMP 98.4
[2023-06-27] MEDS ORDERED: CLIN300C3 PO (15:10)
[2023-06-27 16:38] VITALS: BP 142/64; RESP 18; O2SAT 96
[2023-06-27] MEDS: clindamycin 150mg capsule PO ONE (16:42)
== END 2023-06-27 18:50 | disposition home or self-care (01) ==
LOC: ER 14:03
DX: K02.9 Dental caries, unspecified (principal); K08.89 Other specified disorders of teeth and supporting structures; E78.00 Pure hypercholesterolemia, unspecified; I10 Essential (primary) hypertension; E03.9 Hypothyroidism, unspecified; Z90.49 Acquired absence of other specified parts of digestive tract; Z85.9 Personal history of malignant neoplasm, unspecified; Z86.73 Personal history of transient ischemic attack (TIA), and cerebral infarction without residual deficits; Z88.0 Allergy status to penicillin; Z95.1 Presence of aortocoronary bypass graft
CPT/HCPCS: 99284

== ENCOUNTER 2024-05-11 20:16 | Emergency (ER) | payer MEDICARE, OTHER, MEDICAID ==
[~2024-05-11] VITALS: Ht 182.9 cm; Wt 84.5 kg
[~2024-05-11 20:16] MED LIST changes: -BENZ200C59 PO; +BENZ200C72 PO
[2024-05-11 20:25] VITALS: BP 155/85; PULSE 65; RESP 22; O2SAT 97
[2024-05-11 20:56] LABS: BASOPHILS # (AUTO) 0.1 X10'3 (0-0.2); BASOPHILS % (AUTO) 0.2 % (0-1); EOSINOPHILS % (AUTO) 0 % (0-6); HEMATOCRIT 28.7 % (42.0-52.0); HEMOGLOBIN 9.1 g/dl (14.0-17.9); LYMPHOCYTES # (AUTO) 0.8 X10'3 (1.1-4.8); LYMPHOCYTES % (AUTO) 1.9 % (21-51); MEAN CORPUSCULAR HEMOGLOBIN 27.4 PG (27.0-31.0); MEAN CORPUSCULAR HGB CONC 31.7 g/dL (33.0-36.5); MEAN CORPUSCULAR VOLUME 86.4 FL (78-98); MEAN PLATELET VOLUME 11.1 FL (7.4-10.4); MONOCYTES # (AUTO) 9.2 X10'3 (0-0.9); MONOCYTES % (AUTO) 22.7 % (2-12); NEUTROPHILS # (AUTO) 30.6 X10'3 (1.8-7.7); NEUTROPHILS % (AUTO) 75.2 % (42-75); PLATELET COUNT 95 X10'3 (140-440); RED BLOOD COUNT 3.32 X10'6 (4.70-6.10); RED CELL DISTRIBUTION WIDTH 19.5 % (11.5-14.5)
[2024-05-11 21:04] LABS: WHITE BLOOD COUNT 40.6 X10'3 (4.5-11.0)
[2024-05-11 21:14] LABS: ALANINE AMINOTRANSFERASE 28 U/L (12-78); ALBUMIN 2.9 G/DL (3.4-5.0); ALBUMIN/GLOBULIN RATIO 0.6 (1.1-1.5); ALKALINE PHOSPHATASE 45 IU/L (46-116); ANION GAP 10 (8-16); ASPARTATE AMINO TRANSFERASE 23 U/L (10-37); BILIRUBIN,TOTAL 0.6 MG/DL (0.1-1.0); BLOOD UREA NITROGEN 37 MG/DL (7-18); CHLORIDE 106 MMOL/L (99-107); CREATININE 2.05 MG/DL (0.60-1.10); GLUCOSE 106 MG/DL (70-104); POTASSIUM 4.5 MMOL/L (3.5-5.1); SODIUM 138 MMOL/L (135-145); TOTAL CARBON DIOXIDE 22.2 MMOL/L (24-32); TOTAL PROTEIN 7.7 G/DL (6.4-8.2); eCRCL 29 ML/MIN; eGFR 31 ML/MIN
[2024-05-11 21:19] LABS: TOTAL CELLS COUNTED 100
[2024-05-11 21:21] LABS: PRO BRAIN NATRIURETIC PEPTIDE 7488 PG/ML (0-450)
[2024-05-11 21:23] LABS: ACANTHOCYTES FEW; ANISOCYTOSIS 1+; PLATELET ESTIMATE DECREASED; POIKILOCYTOSIS 1+; POLYCHROMASIA FEW
[2024-05-12] MEDS: furosemide 10 MG/1 ML 10ml inj IV ONE (00:24)
[2024-05-12 00:50] LABS: CLARITY,URINE CLOUDY (Clear); COLOR,URINE YELLOW (Yellow); GLUCOSE, URINE NEGATIVE (Neg); KETONES,URINE 15 mg/dl (Neg); OCCULT BLOOD,URINE Large (Neg); PH,URINE 7.5 (4.8-8.0); PROTEIN,URINE 30 mg/dl (Neg); UA COLLECTION TYPE CLN CATCH MIDSTREAM
[2024-05-12 00:51] LABS: BACTERIA,URINE 3+ /HPF (Neg); BILIRUBIN,URINE NEGATIVE (Neg); LEUKOCYTE ESTERASE ,URINE MODERATE (Neg); NITRITES, URINE POSITIVE (Neg); SQUAMOUS EPITHELIAL CELL,UR FEW /LPF (FEW); UROBILINOGEN,URINE 0.2 E.U/dL (0.2-1.0)
[2024-05-12 00:52] LABS: RBC,URINE 50-100 /HPF (0-2); WBC,URINE 30-50 /HPF (0-4)
[2024-05-12 01:47] VITALS: TEMP 97.9
== END 2024-05-12 02:33 | disposition home or self-care (01) ==
LOC: ER 20:17
DX: M54.50 Low back pain, unspecified (principal); E78.00 Pure hypercholesterolemia, unspecified; E03.9 Hypothyroidism, unspecified; I25.10 Atherosclerotic heart disease of native coronary artery without angina pectoris; N40.0 Benign prostatic hyperplasia without lower urinary tract symptoms; Z88.0 Allergy status to penicillin; Z90.49 Acquired absence of other specified parts of digestive tract; Z79.899 Other long term (current) drug therapy; Z86.73 Personal history of transient ischemic attack (TIA), and cerebral infarction without residual deficits; Z95.1 Presence of aortocoronary bypass graft; Z90.89 Acquired absence of other organs; Z87.440 Personal history of urinary (tract) infections
CPT/HCPCS: 36415; 71045; 74176; 80053; 81001; 83880; 84145; 84484; 85007; 85025; 87088; 87186; 93005; 96374; 99285; J1940; 87077

== ENCOUNTER 2024-05-19 07:41 | Emergency (ER) | payer MEDICARE, OTHER, MEDICAID ==
[~2024-05-19] VITALS: Ht 177.8 cm; Wt 81.8 kg
[2024-05-19 07:44] VITALS: TEMP 97
[2024-05-19] MEDS: HYDROcodone/acetaminophen 5mg/325mg tablet PO ONE (08:48)
[2024-05-19] MEDS: cyclobenzaprine 10mg tablet PO ONE (08:48)
[2024-05-19 08:54] LABS: BASOPHILS % (AUTO) 0.1 % (0-1); EOSINOPHILS % (AUTO) 0 % (0-6); HEMATOCRIT 28.2 % (42.0-52.0); HEMOGLOBIN 8.7 g/dl (14.0-17.9); LYMPHOCYTES # (AUTO) 0.5 X10'3 (1.1-4.8); LYMPHOCYTES % (AUTO) 1.1 % (21-51); MEAN CORPUSCULAR HEMOGLOBIN 26.6 PG (27.0-31.0); MEAN PLATELET VOLUME 10.5 FL (7.4-10.4); MONOCYTES # (AUTO) 9.6 X10'3 (0-0.9); MONOCYTES % (AUTO) 20.7 % (2-12); NEUTROPHILS # (AUTO) 36.1 X10'3 (1.8-7.7); NEUTROPHILS % (AUTO) 78.1 % (42-75); PLATELET COUNT 124 X10'3 (140-440); RED BLOOD COUNT 3.28 X10'6 (4.70-6.10)
[2024-05-19 09:01] LABS: WHITE BLOOD COUNT 46.3 X10'3 (4.5-11.0)
[2024-05-19 09:31] LABS: ALBUMIN 2.9 G/DL (3.4-5.0); ANION GAP 8 (8-16); BLOOD UREA NITROGEN 31 MG/DL (7-18); BUN/CREATININE RATIO 15.9 (10.0-20.0); CALCIUM 9.2 MG/DL (8.5-10.1); CHLORIDE 110 MMOL/L (99-107); CREATININE 1.95 MG/DL (0.60-1.10); GLUCOSE 107 MG/DL (70-104); POTASSIUM 4.4 MMOL/L (3.5-5.1); SODIUM 142 MMOL/L (135-145); TOTAL CARBON DIOXIDE 23.8 MMOL/L (24-32); eCRCL 29 ML/MIN; eGFR 33 ML/MIN
[2024-05-19 09:42] LABS: ANISOCYTOSIS 2+; PLATELET ESTIMATE DECREASED; POIKILOCYTOSIS FEW; POLYCHROMASIA FEW; TOTAL CELLS COUNTED 100
[2024-05-19 09:55] LABS: BILIRUBIN,URINE NEGATIVE (Neg); CLARITY,URINE TURBID (Clear); COLOR,URINE YELLOW (Yellow); GLUCOSE, URINE NEGATIVE (Neg); KETONES,URINE TRACE mg/dl (Neg); LEUKOCYTE ESTERASE ,URINE MODERATE (Neg); NITRITES, URINE NEGATIVE (Neg); OCCULT BLOOD,URINE LARGE (Neg); PH,URINE 8.5 (4.8-8.0); PROTEIN,URINE 100 mg/dl (Neg); UROBILINOGEN,URINE 0.2 E.U/dL (0.2-1.0)
[2024-05-19 09:56] LABS: UA COLLECTION TYPE SUPRAPUBIC CATH
[2024-05-19 10:05] LABS: BACTERIA,URINE 4+ /HPF (Neg); MUCUS STRANDS NONE SEEN /LPF (Neg); RBC,URINE 20-50 /HPF (0-2); SQUAMOUS EPITHELIAL CELL,UR NONE SEEN /LPF (FEW); TRIPLE PHOSPHATE CRYST 1+ /HPF (NEGATIVE); WBC CLUMPS,URINE FEW /HPF (NEGATIVE)
[2024-05-19] MEDS: ciprofloxacin/D5W 200mg/100mL 100 ML IV SCH (11:46)
[2024-05-19 12:06] VITALS: BP 139/61; PULSE 60; RESP 16; O2SAT 95
== END 2024-05-19 14:44 ==
LOC: ER 07:41
DX: G89.29 Other chronic pain (principal); M54.50 Low back pain, unspecified; N39.0 Urinary tract infection, site not specified; C95.10 Chronic leukemia of unspecified cell type not having achieved remission; N40.0 Benign prostatic hyperplasia without lower urinary tract symptoms; I25.10 Atherosclerotic heart disease of native coronary artery without angina pectoris; I10 Essential (primary) hypertension; E78.00 Pure hypercholesterolemia, unspecified; E03.9 Hypothyroidism, unspecified; Z88.0 Allergy status to penicillin; Z79.899 Other long term (current) drug therapy; Z90.49 Acquired absence of other specified parts of digestive tract; Z86.73 Personal history of transient ischemic attack (TIA), and cerebral infarction without residual deficits; Z87.440 Personal history of urinary (tract) infections; Z90.89 Acquired absence of other organs; Z95.1 Presence of aortocoronary bypass graft
CPT/HCPCS: 36415; 80048; 81001; 83605; 85007; 85025; 87040; 93005; 96365; 99284; J0744; C1758

== ENCOUNTER 2024-05-30 17:05 | Emergency (ER) | payer MEDICARE, OTHER, MEDICAID ==
[~2024-05-30] VITALS: Ht 177.8 cm; Wt 77.5 kg
[2024-05-30 17:49] LABS: BASOPHILS # (AUTO) 0.1 X10'3 (0-0.2); EOSINOPHILS % (AUTO) 0 % (0-6); HEMATOCRIT 30.9 % (42.0-52.0); HEMOGLOBIN 9.6 g/dl (14.0-17.9); RED CELL DISTRIBUTION WIDTH 20.7 % (11.5-14.5)
[2024-05-30 17:52] LABS: BASOPHILS % (AUTO) 0.1 % (0-1); LYMPHOCYTES # (AUTO) 0.9 X10'3 (1.1-4.8); LYMPHOCYTES % (AUTO) 1.5 % (21-51); MEAN CORPUSCULAR HEMOGLOBIN 26.7 PG (27.0-31.0); MEAN CORPUSCULAR VOLUME 86.4 FL (78-98); MEAN PLATELET VOLUME 11.5 FL (7.4-10.4); MONOCYTES # (AUTO) 7.1 X10'3 (0-0.9); MONOCYTES % (AUTO) 11.2 % (2-12); NEUTROPHILS # (AUTO) 55.1 X10'3 (1.8-7.7); NEUTROPHILS % (AUTO) 87.2 % (42-75); PLATELET COUNT 131 X10'3 (140-440); RED BLOOD COUNT 3.58 X10'6 (4.70-6.10)
[2024-05-30 17:56] LABS: WHITE BLOOD COUNT 63.2 X10'3 (4.5-11.0)
[2024-05-30 17:57] LABS: ALANINE AMINOTRANSFERASE 22 U/L (12-78); ALBUMIN 3.2 G/DL (3.4-5.0); ALBUMIN/GLOBULIN RATIO 0.7 (1.1-1.5); ALKALINE PHOSPHATASE 49 IU/L (46-116); ANION GAP 9 (8-16); ASPARTATE AMINO TRANSFERASE 18 U/L (10-37); BILIRUBIN,TOTAL 0.5 MG/DL (0.1-1.0); BLOOD UREA NITROGEN 34 MG/DL (7-18); BUN/CREATININE RATIO 18.7 (10.0-20.0); CHLORIDE 104 MMOL/L (99-107); CREATININE 1.82 MG/DL (0.60-1.10); GLUCOSE 110 MG/DL (70-104); LIPASE 14 U/L (16-77); POTASSIUM 3.5 MMOL/L (3.5-5.1); SODIUM 138 MMOL/L (135-145); TOTAL CARBON DIOXIDE 25.2 MMOL/L (24-32); TOTAL PROTEIN 7.9 G/DL (6.4-8.2); eCRCL 31 ML/MIN; eGFR 36 ML/MIN
[2024-05-30 18:19] LABS: NUCLEATED RED BLOOD CELLS 1 /100WBC (0-0); PLATELET ESTIMATE NORMAL; TOTAL CELLS COUNTED 100
[2024-05-30 18:21] LABS: ANISOCYTOSIS 3+
[2024-05-30 18:23] LABS: BURR CELLS FEW; LARGE PLATELETS FEW
[2024-05-30 18:25] LABS: POIKILOCYTOSIS 1+; POLYCHROMASIA FEW
[2024-05-30 18:26] LABS: SCHISTOCYTES FEW
[2024-05-30] MEDS: acetaminophen 1,000mg/100ml IV 100 ML IV ONE (18:29)
[2024-05-30 19:15] LABS: BILIRUBIN,URINE NEGATIVE (Neg); CLARITY,URINE SLIGHTLY CLOUDY (Clear); COLOR,URINE YELLOW (Yellow); GLUCOSE, URINE NEGATIVE (Neg); KETONES,URINE TRACE mg/dl (Neg); LEUKOCYTE ESTERASE ,URINE NEGATIVE (Neg); NITRITES, URINE NEGATIVE (Neg); OCCULT BLOOD,URINE LARGE (Neg); PH,URINE 5.5 (4.8-8.0); PROTEIN,URINE 100 mg/dl (Neg); UROBILINOGEN,URINE 0.2 E.U/dL (0.2-1.0)
[2024-05-30 19:28] LABS: UA COLLECTION TYPE FOLEY CATH
[2024-05-30 19:36] LABS: HYALINE CASTS 0-3 /LPF (NEGATIVE); SQUAMOUS EPITHELIAL CELL,UR FEW /LPF (FEW)
[2024-05-30 19:37] LABS: BACTERIA,URINE 2+ /HPF (Neg); RBC,URINE 20-50 /HPF (0-2)
[2024-05-30] MEDS: LIDOcaine 2% Viscous 15ml cup MM ONE (20:23)
[2024-05-30] MEDS: normal saline 1000ml 1,000 ML IV ONE (23:43)
[2024-05-31] MEDS: dicyclomine 10mg/ml 2ml ampule IM ONE (06:07)
[2024-05-31] MEDS: acetaminophen 1,000mg/100ml IV 100 ML IV ONE (06:07)
[2024-05-31] MEDS: bisacodyl 5mg tablet.DR PO ONE (06:16)
[2024-05-31 07:24] VITALS: BP 140/53; PULSE 89; RESP 16; TEMP 98.5; O2SAT 96
== END 2024-05-31 08:53 | disposition home or self-care (01) ==
LOC: ER 17:05
DX: K59.00 Constipation, unspecified (principal); E03.9 Hypothyroidism, unspecified; E78.00 Pure hypercholesterolemia, unspecified; I10 Essential (primary) hypertension; Z86.73 Personal history of transient ischemic attack (TIA), and cerebral infarction without residual deficits; Z88.0 Allergy status to penicillin; Z90.49 Acquired absence of other specified parts of digestive tract; Z90.89 Acquired absence of other organs; Z95.1 Presence of aortocoronary bypass graft
CPT/HCPCS: 36415; 74176; 80053; 81001; 83690; 85007; 85025; 87077; 87088; 87186; 96361; 96365; 96366; 96372; 96375; 99285; J0131; J0500; J7030